=== PATIENT | female | born 1945 | race Caucasian/White ===

== ENCOUNTER → 2016-08-14 | Outpatient (CLI) | payer OTHER ==
--- NOTE | 2016-08-14 17:32 | DIAGNOSTIC IMAGING REPORT ---
MRI OF THE BRAIN AND INTERNAL AUDITORY CANALS WITHOUT CONTRAST CLINICAL HISTORY: SENSORINEURAL HEARING LOSS BILATERAL COMPARISON STUDY: No previous studies for comparison. FINDINGS: No intravenous contrast was administered due to history of renal disease and transplant. This limits the study for the detection of small intracanalicular tumors. No intra or extra-axial mass lesions are visualized. Axial diffusion-weighted images reveal no evidence of acute or subacute infarction. There is no evidence of hydrocephalus. There is mucosal thickening/fluid within the maxillary and ethmoid sinuses. Proton density T2-weighted and FLAIR images reveal scattered foci of increased signal within the white matter, likely on a small vessel basis. No cerebellopontine angle masses are visualized given the limitations of a noncontrast study. IMPRESSION: 1. No acute intracranial findings 2. No evidence of intracranial mass given the limitations of a noncontrast study 3. No evidence of acute or subacute infarction 4. Foci of increased T2 signal within the white matter, likely on a small vessel ischemic basis Electronically signed by: Richie Nuñez M.D. 08/14/2016 5:30 PM Dictated Date/Time: 08/14/2016 5:26 PM
== END | disposition home or self-care (01) ==
LOC: C.MRI 15:34
PROVIDERS: ATTEND Otolaryngology
DX: H91.93 Unspecified hearing loss, bilateral (principal)

== ENCOUNTER 2021-11-29 11:07 | Inpatient (IN) ==
--- NOTE | 2021-11-29 11:18 | Emergency Department Note ---
Impression & Plan Acute dehydration, Nausea vomiting and diarrhea, Abdominal pain, Self-injurious behavior ED Provider Note NAME: BERTIN FLORES AGE: 76 SEX: F : 1945 ARRIVES VIA: Ambulance INFORMANT: Patient, ED PROVIDER(S): Salazar Elmore MD Chief Complaint: Weakness, fatigue, concern for mental wellness HPI: Patient presents primarily due to concern for weakness fatigue diarrhea with an episode of vomiting. The patient did have an episode of vomiting earlier today while in clinic. Daughter at bedside states that the patient has had dark stools. Does not take any blood thinner medications. The patient does feel cold but denies any chest pains or shortness of breath. The patient does complain of left-sided and lower abdominal pain. No reported fevers or chills. The patient has been at [facility] several weeks ago and was just discharged from [facility] 9 days ago. The patient had been on 2 separate sets of antibiotics during the 2 hospitalizations and does have a known history of C. difficile. Patient has been having diarrhea since her discharge from [place]. Patient reportedly tried to cut her left wrist 2 days prior and an attempt to self-harm because she was tired of being sick as well as having the diarrhea. ROS: See HPI for pertinent positives and negatives. A total of 10 systems were reviewed and otherwise negative. Past medical history: See below Surgical history: See below Social history: See below Physical Exam: GENERAL: Mildly ill in appearance, wearing a mask, non-toxic. EYE EXAM: Normal conjunctiva. PERRL, no anisocoria and EOM's grossly intact w/o pain. NECK: Supple, no nuchal rigidity, no adenopathy, non-tender. No signs of meningismus. FROM of the neck with good chin to chest and neck extension. No stridor. LUNGS: Clear to auscultation. Normal chest wall mechanics. HEART: NSR, no MRG. ABDOMEN: Abdomen soft, mid and lower abdominal discomfort, not peritonitic, normo-active bowel sounds, no masses, no rebound or guarding. BACK: No CVA TTP. SKIN: 2 horizontal well-healing eschars over the dorsal aspect of the wrist, currently hemostatic no surrounding skin changes. Neurovascular intact distally. UPPER EXTREMITIES: Upper extremities are grossly normal. LOWER EXTREMITIES: Grossly normal, no edema. NEURO EXAM: A&O x3, cranial nerves II-XII grossly intact, normal speech, moves all 4 extremities. Differential diagnoses: Infection, dehydration, metabolic abnormality, hypo/hyperglycemia, electrolyte disturbance, anemia, hypoxia, cardiac sources, intracerebral event, toxicologic, neurologic, as well as other pathologies. Course: Patient was seen and evaluated the bedside. Full history physical exam was performed. EKG interpreted by me Normal sinus rhythm, rate of 72, normal intervals, normal axis, no ST elevations. No significant change for comparison July 19, 2020. Imaging Studies: See Below Cardiac monitoring: An order was placed for continuous cardiac monitoring. The monitor shows a rate of 82 with sinus rhythm. MDM: Patient presents due to concern for weakness fatigue and self-harm. Blood work is obtained along with CT abdomen pelvis chest x-ray urinalysis was given IV fluids and antiemetics. Patient did have hypoxemia when the patient was asleep so she was placed on 4 L nasal cannula. Chest x-ray was obtained. Patient had never endorsed any cough shortness of breath or chest pain. Patient has a normal white count H&H and platelet count kidney function did show prerenal azotemia likely consistent with dehydration. Initial lactate of 2.1. The patient did receive a second liter of IV fluids. Mild hypercalcemia 10.2. Procalcitonin is negative. Chakra pending. COVID-negative. Patient's chest fi lm is negative and the patient CT abdomen pelvis does not show any acute process. I did speak the on-call hospitalist Dr. Veliz as well as Ajit Tejada PA-C. Patient did have a fecal occult blood ordered but the patient's hemoglobin is normal. Patient also had a GI study ordered given the patient's history of prior C. difficile with diarrhea. 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) S/P hysterectomy S/P kidney transplant (11/2002) Family History Brother Diabetes Father Coronary heart disease Diabetes Cancer Myocardial infarction, Onset Age: 39 Smoker Sister Diabetes Mother Diabetes Stroke Brother Prostate cancer Denies family history of Ovarian cancer Breast cancer Colorectal cancer Social History Smoking Status: Never smoker Second Hand Exposure: No; Do You Dip or Chew Tobacco: No; Tobacco Cessation Education Requested by Patient: No Hx Alcohol Use: No Hx Substance Use: No Preferred Language: Icelandic Communication Ability: Effective Visual Impairment: Limited Hearing Ability: Hard of Hearing Technology Director Required: No Beliefs That Will Affect Care: None marital status: Current Living Situation: Alone current occupational status: retired 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 Other Information That Helps Us Care for You: No Feels Safe at Home: Yes Safety Concerns: Feels Safe At This Time caffeine: Yes during the past year weight has: remained stable Dental Care, Regularly: Yes Physical Activity Frequency: 3-4 Times per Week Seatbelt Use: always Sunscreen Use: No Assistive Devices: None Allergies Allergies Allergy/AdvReac Type Severity Reaction Status Date / Time adhesive tape Allergy Unknown Verified 11/29/21 09:25 dexlansoprazole Allergy Unknown Verified 11/29/21 09:25 [From Dexilant] latex Allergy Unknown Verified 11/29/21 09:25 vancomycin Allergy Unknown Verified 11/29/21 09:25 ASPIRIN IN LARGE DOSES AdvReac MAKES HEAD Uncoded 11/29/21 09:25 SPIN Home Meds Home Medications Medication Instructions Recorded Confirmed tacrolimus 1 mg capsule, 1 mg PO .COMPLEX 04/01/19 11/29/21 immediate-release (Prograf) B-complex with vitamin C 1 tab PO DAILY 02/21/21 11/29/21 azathioprine 50 mg tablet (Imuran) 75 mg PO DAILY 11/29/21 11/29/21 losartan 25 mg tablet (Cozaar) 25 mg PO DAILY 11/29/21 11/29/21 Previous Rx's Medication Instructions Recorded blood sugar diagnostic (iKnowlTouch #200 ea 02/21/21 Ultra Test strips) blood-glucose meter (iKnowlTouch #1 ea 02/21/21 Ultra2 Meter kit) lancets 30 gauge (OneTouch Delica #200 ea 02/21/21 Plus Lancet) Results & Data (ED) Vital Signs Vital Signs - 24 hr 11/29/21 11:07 11/29/21 13:19 11/29/21 13:19 Temperature 36.7 C Temperature Source Oral Pulse Rate 68 Pulse Rate [Left Finger] Pulse Rate from SpO2 Sensor Respiratory Rate 18 Respiratory Effort / Characteristics Non-Labored Spontaneous Respiratory Depth Normal Respiratory Pattern Regular Blood Pressure 164/75 H Blood Pressure [Left Arm] Blood Pressure Mean 104 Blood Pressure Mean [Left Arm] Blood Pressure Position [Left Arm] Pulse Oximetry 98 79 L 99 Oxygen Delivery Method Room Air Room Air Nasal Cannula Oxygen Flow Rate 4 Sepsis Recent Fever Within 48 Hours No Sepsis New/Unexplained Change in Mental Status N/A Sepsis Action Taken by Nursing No Action Required 11/29/21 12:56 11/29/21 13:30 11/29/21 14:00 Temperature Temperature Source Pulse Rate 67 73 Pulse Rate [Left Finger] 67 Pulse Rate from SpO2 Sensor 68 74 Respiratory Rate 16 22 27 H Respiratory Effort / Characteristics Respiratory Depth Respiratory Pattern Blood Pressure 195/87 H 187/97 H Blood Pressure [Left Arm] 195/78 H Blood Pressure Mean 123 127 Blood Pressure Mean [Left Arm] 117 Blood Pressure Position [Left Arm] Lying Pulse Oximetry 100 99 99 Oxygen Delivery Method Nasal Cannula Oxygen Flow Rate 4 Sepsis Recent Fever Within 48 Hours Sepsis New/Unexplained Change in Mental Status Sepsis Action Taken by Nursing 11/29/21 14:58 11/29/21 15:25 11/29/21 16:36 Temperature Temperature Source Pulse Rate Pulse Rate [Left Finger] 70 71 68 Pulse Rate from SpO2 Sensor Respiratory Rate 18 20 20 Respiratory Effort / Characteristics Non-Labored Non-Labored Non-Labored Respiratory Depth Normal Normal Normal Respiratory Pattern Blood Pressure Blood Pressure [Left Arm] 197/80 H 204/91 H 202/103 H Blood Pressure Mean Blood Pressure Mean [Left Arm] 119 128 136 Blood Pressure Position [Left Arm] Pulse Oximetry 98 88 L 98 Oxygen Delivery Method Room Air Room Air Room Air Oxygen Flow Rate Sepsis Recent Fever Within 48 Hours Sepsis New/Unexplained Change in Mental Status Sepsis Action Taken by [facility] Medications Current Medication List: was personally reviewed by me Laboratory Data Attestation: I reviewed the patient's lab results. Result diagrams: 11/29/21 12:28 11/29/21 12:28 Lab Results 11/29/21 11/29/21 11/29/21 Range/Units 12:23 12:28 12:28 WBC 8.68 (4.8-10.8) K/ul RBC 4.67 (3.93-5.22) M/uL Hgb 14.5 (12.0-16.0) g/dl Hct 41.5 (34.1-44.9) % MCV 88.9 (80.0-100.0) fL MCH 31.0 (25.0-34.0) pg MCHC 34.9 (32.0-36.0) g/dL RDW Std Deviation 47.3 H (36.4-46.3) fL RDW Coeff of Geo 14.8 H (11.5-14.5) % Plt Count 213 (130-400) K/uL MPV 11.8 (9.4-12.3) fL Immature Gran % (Auto) 0.3 % Neut % (Auto) 79.0 % Lymph % (Auto) 10.8 % [place] % (Auto) 8.9 % Eos % (Auto) 0.9 % Baso % (Auto) 0.1 % Neut # (Auto) 6.85 H (1.4-6.5) K/uL Lymph # (Auto) 0.94 L (1.2-3.4) K/uL [place] # (Auto) 0.77 (0.24-0.82) K/uL Eos # (Auto) 0.08 (0-0.50) K/uL Baso # (Auto) 0.01 (0-0.2) K/uL Immature Gran # (Auto) 0.03 H (0.00-0.02) K/uL Sodium 142 (136-145) mmol/L Potassium 3.5 (3.5-5.1) mmol/L Chloride 109 H (98-107) mmol/L Carbon Dioxide 24 (21-32) mmol/L Anion Gap 9 (3-11) BUN 25 H (6-23) mg/dl Creatinine 0.79 (0.6-1.2) mg/dl Est Cr Clr Drug Dosing 54.6 ml/min Est GFR ( Amer) 83.1 ml/min Est GFR (Non-Af Amer) 71.7 ml/min BUN/Creatinine Ratio 31.6 H (10-20) Glucose 107 H (70-99(Fasting)) mg/dl Lactate (0.4-2.0) mmol/L Calcium 10.2 H (8.5-10.1) mg/dl Total Bilirubin 1.4 H (0.2-1.0) mg/dl AST 13 (13-39) U/L ALT 11 (7-52) U/L Alkaline Phosphatase 55 (34-104) U/L Troponin I High Sens 9.4 (0-14) pg/ml Total Protein 7.3 (6.0-8.3) gm/dl Albumin 3.8 (3.4-5.0) gm/dl Globulin 3.5 (2.5-4.0) gm/dl Albumin/Globulin Ratio 1.1 (0.9-2) Lipase 136 H (11-82) U/L Procalcitonin (0-0.5) ng/ml SARS-CoV-2, RNA, NAAT NEGATIVE (NEGATIVE) 11/29/21 11/29/21 11/29/21 Range/Units 12:28 12:28 15:02 WBC (4.8-10.8) K/ul RBC (3.93-5.22) M/uL Hgb (12.0-16.0) g/dl Hct (34.1-44.9) % MCV (80.0-100.0) fL MCH (25.0-34.0) pg MCHC (32.0-36.0) g/dL RDW Std Deviation (36.4-46.3) fL RDW Coeff of Geo (11.5-14.5) % Plt Count (130-400) K/uL MPV (9.4-12.3) fL Immature Gran % (Auto) % Neut % (Auto) % Lymph % (Auto) % [place] % (Auto) % Eos % (Auto) % Baso % (Auto) % Neut # (Auto) (1.4-6.5) K/uL Lymph # (Auto) (1.2-3.4) K/uL [place] # (Auto) (0.24-0.82) K/uL Eos # (Auto) (0-0.50) K/uL Baso # (Auto) (0-0.2) K/uL Immature Gran # (Auto) (0.00-0.02) K/uL Sodium (136-145) mmol/L Potassium (3.5-5.1) mmol/L Chloride (98-107) mmol/L Carbon Dioxide (21-32) mmol/L Anion Gap (3-11) BUN (6-23) mg/dl Creatinine (0.6-1.2) mg/dl Est Cr Clr Drug Dosing ml/min Est GFR ( Amer) ml/min Est GFR (Non-Af Amer) ml/min BUN/Creatinine Ratio (10-20) Glucose (70-99(Fasting)) mg/dl Lactate 2.1 H* 1.2 (0.4-2.0) mmol/L Calcium (8.5-10.1) mg/dl Total Bilirubin (0.2-1.0) mg/dl AST (13-39) U/L ALT (7-52) U/L Alkaline Phosphatase (34-104) U/L Troponin I High Sens (0-14) pg/ml Total Protein (6.0-8.3) gm/dl Albumin (3.4-5.0) gm/dl Globulin (2.5-4.0) gm/dl Albumin/Globulin Ratio (0.9-2) Lipase (11-82) U/L Procalcitonin < 0.05 (0-0.5) ng/ml SARS-CoV-2, RNA, NAAT (NEGATIVE) Administered Medications Discontinued Medications Sodium Chloride (Nss 1000ml) 1,000 mls @ 999 mls/hr IV .Q1H1M STA Stop: 11/29/21 12:26 Last Infusion: 11/29/21 14:07 Dose: 0 mls/hr Documented By: Admin: 11/29/21 12:28 Dose: 999 mls/hr Documented By: LAILA Sodium Chloride (Nss 1000ml) 1,000 mls @ 999 mls/hr IV .Q1H1M ONE Stop: 11/29/21 14:23 Last Infusion: 11/29/21 15:25 Dose: 0 mls/hr Documented By: Admin: 11/29/21 13:29 Dose: 999 mls/hr Documented By: HANANE Ondansetron HCl (Ondansetron Inj 2 Mg/Ml 2 Ml Vial) 4 mg IV NOW STA Stop: 11/29/21 11:27 Last Admin: 11/29/21 12:28 Dose: 4 mg Documented By: [facility] Imaging Data Radiologist's Impression: Chest X-Ray 11/29/21 13:26 XR chest 1V portable CLINICAL HISTORY: hypoxia when asleep TECHNIQUE: Single frontal radiograph of the chest was obtained. Comparison: None available at the time of this dictation. FINDINGS: No lines and tubes are seen. Calcified aortic knob is seen. The lungs are clear. No evidence of pleural effusion or pneumothorax. IMPRESSION: No acute chest disease. ACT 112: Negative or not required by law. Electronically signed by: Luciano Rust M.D. 11/29/2021 2:10 PM Abdomen/Pelvis CT 11/29/21 14:17 CT OF THE ABDOMEN AND PELVIS WITHOUT CONTRAST CLINICAL HISTORY: mid and lower ab pain; h/o renal trx, n/v/d COMPARISON STUDY: CT of the abdomen and pelvis July 19, 2020. Renal transplant ultrasound January 24, 2021. TECHNIQUE: Axial images of the abdomen and pelvis were obtained without IV contrast. Images were reviewed in the axial, sagittal, and coronal planes. Automated exposure control was utilized for the study. A dose lowering technique was utilized adhering to the principles of ALARA. FINDINGS: Lung bases are unremarkable. No pneumatosis, free air or portal venous gas is present. There is no biliary ductal dilatation status post cholecystectomy. Evaluation of the abdomen and pelvis is suboptimal on this unenhanced exam. Liver, spleen, adrenal glands and pancreas are unremarkable. [place] kidneys are atrophic. There may be a small peripherally calcified aneurys m arising from the proximal celiac axis. This is suboptimally assessed on this unenhanced exam. This is unchanged. There is extensive plaque of the abdominal aorta. No evidence for a bowel obstruction. Colonic diverticulosis is present. Suspected postsurgical changes within the right groin is noted. This is unchanged. Appearance of the left lower quadrant renal allograft is unremarkable. There is no hydronephrosis. There is no lymphadenopathy. No acute fractures within the visualized skeletal structures. No change in appearance of the abdomen or pelvis. IMPRESSION: 1. No acute process or pelvis on unenhanced exam. No change since CT of July 19, 2020. 2. No bowel obstruction. Colonic diverticulosis without evidence for acute diverticulitis. 3. Unremarkable appearance of the left lower quadrant renal allograft on unenhanced CT. ACT 112: Negative or not required by law. Electronically signed by: Buzz Tellez M.D. 11/29/2021 3:19 PM Discharge Plan Visit Data Chief Complaint: Mental Health Evaluation Stated Complaint: WEAKNESS, MHID ED Provider: Salazar Elmore Discharge Problem: Acute dehydration, Nausea vomiting and diarrhea, Abdominal pain, Self-injurious behavior Patient Disposition: Admitted As Inpatient Forms Stand Alone Forms: [facility], Suicide Prevention Resources Prescriptions Prescriptions: No Action (DME) OneTouch Ultra Test Strip See Rx Instructions .Route Qty: 200 1RF Rx Instructions: test 3 times per day (DME) blood-glucose meter [OneTouch Ultra2 Meter] Kit See Rx Instructions .Route Qty: 1 0RF Rx Instructions: testing 3 times per day (DME) lancets [OneTouch Delica Plus Lancet] 30 gauge misc See Rx Instructions .Route Qty: 200 1RF Rx Instructions: testing 3 times per day B-complex with vitamin C Tablet 1 tab PO DAILY tacrolimus [Prograf] 1 mg capsule 1 mg PO .COMPLEX Rx Instructions: 1 mg PO 1 tablet in the am 2 tablets in the pm azathioprine [Imuran] 50 mg tablet 75 mg PO DAILY losartan [Cozaar] 25 mg tablet 25 mg PO DAILY Referrals Referrals: Kaylan Chavez, [Primary Care Provider] -
[2021-11-29] MEDS ORDERED: SODIUM CHLORIDE 0.9% 1000ML 1,000 ML IV STA (11:26)
[2021-11-29] MEDS ORDERED: ONDANSETRON INJ 2 MG/ML 2 ML VIAL IV STA (11:26)
[2021-11-29 12:54] LABS: Basophils # (auto) 0.01 K/uL (0-0.2); Basophils % (auto) 0.1 %; Eosinophils # (auto) 0.08 K/uL (0-0.50); Eosinophils % (auto) 0.9 %; Hematocrit (blood only) 41.5 % (34.1-44.9); Hemoglobin 14.5 g/dl (12.0-16.0); Immature Granulocytes # (auto) 0.03 K/uL (0.00-0.02); Immature Granulocytes % (auto) 0.3 %; Lymphocytes # (auto) 0.94 K/uL (1.2-3.4); Lymphocytes % (auto) 10.8 %; Mean Corpuscular Hgb Conc 34.9 g/dL (32.0-36.0); Mean Corpuscular Volume 88.9 fL (80.0-100.0); Mean Platelet Volume 11.8 fL (9.4-12.3); Monocytes # (auto) 0.77 K/uL (0.24-0.82); Monocytes % (auto) 8.9 %; Neutrophils # (auto) 6.85 K/uL (1.4-6.5); Platelet Count 213 K/uL (130-400); RDW Coefficient of Variation 14.8 % (11.5-14.5); RDW Standard Deviation 47.3 fL (36.4-46.3); Red Blood Count 4.67 M/uL (3.93-5.22); White Blood Count 8.68 K/ul (4.8-10.8)
[2021-11-29 13:16] LABS: Troponin I High Sensitivity 9.4 pg/ml (0-14)
[2021-11-29 13:19] LABS: Albumin Globulin Ratio 1.1 (0.9-2); Albumin Level 3.8 gm/dl (3.4-5.0); BUN Creatinine Ratio 31.6 (10-20); Bilirubin,Total 1.4 mg/dl (0.2-1.0); Calcium 10.2 mg/dl (8.5-10.1); Creatinine Clr Calc Pharmacy 54.6 ml/min; Est GFR (African American) 83.1 ml/min; Est GFR (Non-African American) 71.7 ml/min; Globulin 3.5 gm/dl (2.5-4.0); Potassium 3.5 mmol/L (3.5-5.1); Total Protein 7.3 gm/dl (6.0-8.3)
[2021-11-29] MEDS ORDERED: SODIUM CHLORIDE 0.9% 1000ML 1,000 ML IV ONE (13:23)
--- NOTE | 2021-11-29 14:11 | XRay Report ---
XR chest 1V portable CLINICAL HISTORY: hypoxia when asleep TECHNIQUE: Single frontal radiograph of the chest was obtained. Comparison: None available at the time of this dictation. FINDINGS: No lines and tubes are seen. Calcified aortic knob is seen. The lungs are clear. No evidence of pleur al effusion or pneumothorax. IMPRESSION: No acute chest disease. ACT 112: Negative or not required by law. Electronically signed by: Luciano Rust M.D. 11/29/2021 2:10 PM
--- NOTE | 2021-11-29 15:21 | CT Scan Report ---
CT OF THE ABDOMEN AND PELVIS WITHOUT CONTRAST CLINICAL HISTORY: mid and lower ab pain; h/o renal trx, n/v/d COMPARISON STUDY: CT of the abdomen and pelvis July 19, 2020. Renal transplant ultrasound January 24, 2021. TECHNIQUE: Axial images of the abdomen and pelvis were obtained without IV contrast. Images were revi ewed in the axial, sagittal, and coronal planes. Automated exposure control was utilized for the jez dy. A dose lowering technique was utilized adhering to the principles of ALARA. FINDINGS: Lung bases are unremarkable. No pneumatosis, free air or portal venous gas is present. Ther e is no biliary ductal dilatation status post cholecystectomy. Evaluation of the abdomen and pelvis i s suboptimal on this unenhanced exam. Liver, spleen, adrenal glands and pancreas are unremarkable. Na tive kidneys are atrophic. There may be a small peripherally calcified aneurysm arising from the prox imal celiac axis. This is suboptimally assessed on this unenhanced exam. This is unchanged. There is extensive plaque of the abdominal aorta. No evidence for a bowel obstruction. Colonic diverticulosis is present. Suspected postsurgical changes within the right groin is noted. This is unchanged. Appear ance of the left lower quadrant renal allograft is unremarkable. There is no hydronephrosis. There is no lymphadenopathy. No acute fractures within the visualized skeletal structures. No change in appea michael of the abdomen or pelvis. IMPRESSION: 1. No acute process or pelvis on unenhanced exam. No change since CT of July 19, 2020. 2. No bowel obstruction. Colonic diverticulosis without evidence for acute diverticulitis. 3. Unremarkable appearance of the left lower quadrant renal allograft on unenhanced CT. ACT 112: Negative or not required by law. Electronically signed by: Buzz Tellez M.D. 11/29/2021 3:19 PM
--- NOTE | 2021-11-29 17:34 | History & Physical Report ---
Date of Service November 29, 2021 Assessment & Plan (1) Weakness: Plan: Attending: Dr. Veliz Impression: This is a 76-year-old female who initially was ill 11/06/2021 with COVID. She was treated at home with antibiotics. She had worsening symptoms by 11/13/2021 and presented to [facility] with nausea and vomiting and diarrhea. She was treated with antibiotics. Initially it was planned that she will go to rehab hospital however, she did not meet qualification with her insurance company due to lack of participation with rehab while inpatient. Patient discharged home 9 days ago. She had increasing weakness and depression and slip ventral wrists bilaterally with superficial lacerations with a kitchen knife not requiring intervention. 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 We will admit patient to medical telemetry until DVT is ruled out. Psychiatry consult placed with suicide precautions per protocol until cleared by psychiatry. Anticipate discharge to rehab as patient lives alone and does not appear to be able to manage ADLs. Regarding patient's weakness,CT scan of the abdomen appears to be without change from prior.No exquisite pain with palpation of the patient does have some tendernessTo deep palpation. Continue to hydrate patient with normal saline solutionWith 20 mill equivalents of potassium PT/OT evaluation and treatment Case management referral for rehab placement Fall precautions Continue supportive care (2) History of Clostridium difficile colitis: Plan: Patient does have history of C. difficile and currently has diarrhea Will check for C. difficile and continue isolation precautions with contact precautions per protocol No indication for oral antibiotics at this time Continue to follow stools (3) Hypercalcemia: Plan: Calcium is currently 10.2 mg/Bismark. Patient typically is around 9.2-9.5. No intervention at this time. We will repeat labs in the morning. (4) Depression: Plan: Patient previously was on antidepressants but these were stopped some years ago Patient does have depression secondary to 19-year [place] post transplant of pancreas and kidney Recently patient is very depressed and slit her wrists bilaterally with superficial lacerations from a kitchen knife this week on Friday or Friday Suicide precautions per protocol Psychiatry consult requested We will hold off on any medical management until seen by psychiatry (5) Hoarding behavior: Plan: See above (6) Hyperlipidemia: Plan: Outpatient management 2 to pancreatic and kidney transplant (7) S/P kidney transplant: Plan: Continue Prograf as directed. Brand necessary. Order placed that patient may take home medication. 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 daily We will continue this at this time Will also add hydralazine 5 mg IV as needed for SBP greater than 180 Follow on telemetry Echocardiogram in August with preserved left ventricular ejection fraction of 60 to 65%. Left ventricular size, wall motion, systolic function normal. Mild mitral regurgitation. Monitor on medical telemetry for now (10) Esophageal reflux disease: Plan: Patient is not on any PPI or H2 nazario Follow symptomatically (11) DVT prophylaxis: Plan: Heparin 5000 units subcutaneously every 12 hours Please refer to Dr. Veliz's addendum for further corrections and additions. History of Present Illness Chief Complaint: Generalized weakness, abdominal pain. Diarrhea Primary Care Provider: Kaylan Chavez DO Attending: Dr. Veliz This is a 76-year-old female with past medical history of pancreatic as well as kidney transplant. She also has a history of hypertension and irritable bowel disease with associated C. difficile colitis in the past. Patient presents for abdominal pain as well as recent attempt to harm herself by slitting bilateral wrists. Brief history as follows: * Original pancreas and kidney transplant at [facility] in 2002 * Revision to transplants at [facility] in [place] 2010 * History of C. difficile colitis * Was ill 11/06/2021 and presented primary care office. She was found to be positive for COVID and sent home with an unknown antibiotic * On 11/13/2021 patient had recurrence of illness associated with nausea, vomiting, diarrhea. She presented to [facility] and was placed on IV antibiotics and IV fluids * Patient was originally planned to be discharged to rehab but due to the holiday, this was unable to be accomplished. After the holiday on 11/20/2021 insurance denied rehab stay as patient refused inpatient therapies Patient was discharged home 11/20/2021 where she lives alone. Her daughter checked on her frequently but patient had no appetite and was not eating or drinking well. On 11/25/2021 daughter checked on patient and she seemed to be doing well. She was then seen on 11/28/2021 and at this time it was identified that she had attempted to cut her wrist with a kitchen knife. Patient was then sent to primary care office for evaluation today and was referred to the emergency department for evaluation. CT scan of the abdomen pelvis showed no new findings as compared to previous CT. Patient's labs were relatively stable with the exception of a lactic acid of 2.1. This was treated with 1 L of normal saline and corrected to 1.2. Patient was also noted to have hypercalcemia at 10.2 mg/Bismark with no physical evidence of hypercalcemia. Procalcitonin is negative. There is no leukocytosis. Hemoglobin is stable at 14.5 with a hematocrit of 41.5. Patient is afebrile and hemodynamically stable. She is currently saturating 98% on room air. She complains of mild abdominal pain but no nausea or vomiting. Long discussion with patient and daughter Jeanie. Patient wishes to be a DNR/DNI. A POLST form was completed after been explained to the patient and the daughter. The patient is a lifelong non-smoker. Negative for any ethanol consumption. She currently lives alone and has struggled with hoarding at home. Allergies Allergy/AdvReac Type Severity Reaction Status Date / Time adhesive tape Allergy Unknown Verified 11/29/21 09:25 dexlansoprazole Allergy Unknown Verified 11/29/21 09:25 [From Dexilant] latex Allergy Unknown Verified 11/29/21 09:25 vancomycin Allergy Unknown Verified 11/29/21 09:25 ASPIRIN IN LARGE DOSES AdvReac MAKES HEAD Uncoded 11/29/21 09:25 SPIN Home Medications Medication Instructions Recorded Confirmed Type tacrolimus 1 mg capsule, 1 mg PO .COMPLEX 04/01/19 11/29/21 History immediate-release (Prograf) B-complex with vitamin C 1 tab PO DAILY 02/21/21 11/29/21 History blood sugar diagnostic (OneTouch #200 ea 02/21/21 11/29/21 Rx Ultra Test strips) blood-glucose meter (Self PointTouch #1 ea 02/21/21 11/29/21 Rx Ultra2 Meter kit) lancets 30 gauge (OneTouch Delica #200 ea 02/21/21 11/29/21 Rx Plus Lancet) azathioprine 50 mg tablet (Imuran) 75 mg PO DAILY 11/29/21 11/29/21 History losartan 25 mg tablet (Cozaar) 25 mg PO DAILY 11/29/21 11/29/21 History 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) S/P hysterectomy S/P kidney transplant (11/2002) Family History Brother Diabetes Father Coronary heart disease Diabetes Cancer Myocardial infarction, Onset Age: 39 Smoker Sister Diabetes Mother Diabetes Stroke Brother Prostate cancer Denies family history of Ovarian cancer Breast cancer Colorectal cancer Social History Smoking Status: Never smoker Second Hand Exposure: No; Do You Dip or Chew Tobacco: No; Tobacco Cessation Education Requested by Patient: No Hx Alcohol Use: No Hx Substance Use: No Preferred Language: Sinhala Communication Ability: Effective Visual Impairment: Limited Hearing Ability: Hard of Hearing Workers Compensation Adjuster Required: No Beliefs That Will Affect Care: None marital status: Single Current Living Situation: Alone current occupational status: retired 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 Pupils equal round and reactive to light and accommodation NOSE: No evidence of epistaxis MOUTH: No lesions or candidiasis. Mucosa moist. No evidence of posterior oropharynx bleeding NECK: Supple. No carotid bruits or stridor. No appreciation of cervical lymphadenopathy. No appreciation of supraclavicular lymphadenopathy. LUNGS: CTA B/L, no wheezes, rales or rhonchi HEART: Regular, rate controlled. No ectopy or evidence of heart murmur ABDOMEN: Soft, NT, ND, BS Present EXTREMITIES: Bilateral LE edema, pedal pulses intact and equal bilaterally. Positive for exquisite calf pain bilaterally with light palpation NEURO: A&OX3. Flat affect. Moves all extremities to command and spontaneously. Pupils equal round and reactive to light and accommodation. Tongue is midline. No facial droop. Patient extremely weak but does not appear to have pronator drift. Toes are downgoing bilaterally. Results & Data Results & Data ([facility]) Vital Signs (Past 12 Hours) Vital Signs Temp Pulse Pulse Resp BP BP Pulse Ox 11/29/21 16:36 68 20 202/103 H 98 11/29/21 15:25 71 20 204/91 H 88 L 11/29/21 14:58 70 18 197/80 H 98 11/29/21 14:00 73 27 H 187/97 H 99 11/29/21 13:30 67 22 195/87 H 99 11/29/21 12:56 67 16 195/78 H 100 11/29/21 13:19 99 11/29/21 13:19 79 L 11/29/21 11:07 36.7 C 68 18 164/75 H 98 O2 Del Method O2 Flow Rate 11/29/21 16:36 Room Air 11/29/21 15:25 Room Air 11/29/21 14:58 Room Air 11/29/21 14:00 11/29/21 13:30 11/29/21 12:56 Nasal Cannula 4 11/29/21 13:19 Nasal Cannula 4 11/29/21 13:19 Room Air 11/29/21 11:07 Room Air Critical Care Results & Data Vital Signs (Past 12 Hours) Vital Signs Temp Pulse Pulse Resp BP BP Pulse Ox 11/29/21 16:36 68 20 202/103 H 98 11/29/21 15:25 71 20 204/91 H 88 L 11/29/21 14:58 70 18 197/80 H 98 11/29/21 14:00 73 27 H 187/97 H 99 11/29/21 13:30 67 22 195/87 H 99 11/29/21 12:56 67 16 195/78 H 100 11/29/21 13:19 99 11/29/21 13:19 79 L 11/29/21 11:07 36.7 C 68 18 164/75 H 98 O2 Del Method O2 Flow Rate 11/29/21 16:36 Room Air 11/29/21 15:25 Room Air 11/29/21 14:58 Room Air 11/29/21 14:00 11/29/21 13:30 11/29/21 12:56 Nasal Cannula 4 11/29/21 13:19 Nasal Cannula 4 11/29/21 13:19 Room Air 11/29/21 11:07 Room Air Lab & Micro Results (Past 24 Hours) RBC 4.09 M/uL (3.93-5.22) 12/02/21 WBC 5.19 K/ul (4.8-10.8) 12/02/21 Hgb 12.6 g/dl (12.0-16.0) 12/02/21 Hct 36.8 % (34.1-44.9) 12/02/21 MCV 90.0 fL (80.0-100.0) 12/02/21 MCH 30.8 pg (25.0-34.0) 12/02/21 MCHC 34.2 g/dL (32.0-36.0) 12/02/21 RDW Standard Deviation 47.8 fL (36.4-46.3) H 12/02/21 RDW Coefficient of Variation 14.6 % (11.5-14.5) H 12/02/21 Plt Count 82 K/uL (130-400) L 12/02/21 MPV 11.9 fL (9.4-12.3) 12/02/21 Na 135 mmol/L (136-145) L 12/02/21 K 3.3 mmol/L (3.5-5.1) L 12/02/21 Cl 104 mmol/L (98-107) 12/02/21 CO2 24 mmol/L (21-32) 12/02/21 Anion Gap 7 (3-11) 12/02/21 BUN 11 mg/dl (6-23) 12/02/21 Creatinine 0.69 mg/dl (0.6-1.2) 12/02/21 Estimated GFR ( Amer) 96.6 ml/min 12/02/21 Estimated GFR (Non-Af Amer) 83.4 ml/min 12/02/21 BUN/Creatinine Ratio 15.9 (10-20) 12/02/21 Glu 101 mg/dl (70-99(Fasting)) H 12/02/21 Ca 9.1 mg/dl (8.5-10.1) 12/02/21 Calcium Level 9.1 mg/dl (8.5-10.1) 12/02/21 05:04 Diagnostic Findings (Past 24 Hours) Chest X-Ray 11/29/21 13:26 XR chest 1V portable CLINICAL HISTORY: hypoxia when asleep TECHNIQUE: Single frontal radiograph of the chest was obtained. Comparison: None available at the time of this dictation. FINDINGS: No lines and tubes are seen. Calcified aortic knob is seen. The lungs are clear. No evidence of pleural effusion or pneumothorax. IMPRESSION: No acute chest disease. ACT 112: Negative or not required by law. Electronically signed by: Luciano Rust M.D. 11/29/2021 2:10 PM Abdomen/Pelvis CT 11/29/21 14:17 CT OF THE ABDOMEN AND PELVIS WITHOUT CONTRAST CLINICAL HISTORY: mid and lower ab pain; h/o renal trx, n/v/d COMPARISON STUDY: CT of the abdomen and pelvis July 19, 2020. Renal transplant ultrasound January 24, 2021. TECHNIQUE: Axial images of the abdomen and pelvis were obtained without IV contrast. Images were reviewed in the axial, sagittal, and coronal planes. Automated exposure control was utilized for the study. A dose lowering technique was utilized adhering to the principles of ALARA. FINDINGS: Lung bases are unremarkable. No pneumatosis, free air or portal venous gas is present. There is no biliary ductal dilatation status post ch olecystectomy. Evaluation of the abdomen and pelvis is suboptimal on this unenhanced exam. Liver, spleen, adrenal glands and pancreas are unremarkable. Knik kidneys are atrophic. There may be a small peripherally calcified aneurysm arising from the proximal celiac axis. This is suboptimally assessed on this unenhanced exam. This is unchanged. There is extensive plaque of the abdominal aorta. No evidence for a bowel obstruction. Colonic diverticulosis is present. Suspected postsurgical changes within the right groin is noted. This is unchanged. Appearance of the left lower quadrant renal allograft is unremarkable. There is no hydronephrosis. There is no lymphadenopathy. No acute fractures within the visualized skeletal structures. No change in appearance of the abdomen or pelvis. IMPRESSION: 1. No acute process or pelvis on unenhanced exam. No change since CT of July 19, 2020. 2. No bowel obstruction. Colonic diverticulosis without evidence for acute diverticulitis. 3. Unremarkable appearance of the left lower quadrant renal allograft on unenhanced CT. ACT 112: Negative or not required by law. Electronically signed by: Buzz Tellez M.D. 11/29/2021 3:19 PM I & O Totals 24 Hours 11/28/21 11/29/21 11/30/21 06:59 06:59 06:59 Intake Total 1999 Balance 1999 Cumulative 11/29/21 10:53 thru 11/29/21 16:36 Intake Total 1999 RT Ventilator Mngmt (Last Documented) Ventilator Ordered Settings Respiratory Rate 20 11/29/21 16:36 Ventilator - PT Measurements Respiratory Rate 20 ECG Additional Comments: EKG 11/29/2021: Code Status & VTE Plan Code Status DNR/DNI as discussed with patient and daughter VTE Prophylaxis Plan VTE Prophylaxis will be ordered: Yes Supervising Physician Co-Signing Physician Notes Patient seen and examined, chart reviewed, case discussed with Ajit Tejada PA-C and I agree with the assessment and plan as above except as otherwise noted Labs and images reviewed 68-year-old female with persistent diarrhea recently treated for COVID 11/06/2021 currently requiring psychiatric observation due to slitting her wrists bilaterally superficially expressing fatigue and a desire to just no longer be ill. Assessment no acute distress, shallow cuts scabbed over on wrist bilaterally without neurovascular compromise. Breathing is unlabored. Wounds are clear to auscultation, heart rate is regular. Strength overall is weak, but with symmetrical strength to obstetrical tech strength and hip flexion. C. difficile precaution, follow for C. difficile given multiple hospitalizations and persistent diarrhea. Psychiatry consulted, follow on suicide precautions. Continue Prograf, Imuran agree with additional management as above PG Care Time/CCT Total # of Minutes Spent Total Time Spent with Patient: Total time spent is greater than 50% in coordination of care (as documented) at patient's floor/unit and/or counseling patient: 60 Coding Level of Care Code 89183 Initial Inpt Care Lvl 3 Diagnoses Weakness R53.1 History of Clostridium difficile colitis Z86.19 Hypercalcemia E83.52 Depression F32.A Hoarding behavior F42.3 Hyperlipidemia E78.5 S/P kidney transplant Z94.0 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
[2021-11-29] MEDS ORDERED: ALUMINUM/MAGNESIUM SUSP 30 ML UDC PO PRN (20:35)
[2021-11-29] MEDS ORDERED: hydrALAZINE HCL 20 MG/ML VIAL IV PRN (20:35)
[2021-11-29] MEDS ORDERED: ONDANSETRON INJ 2 MG/ML 2 ML VIAL IV PRN (20:35)
[2021-11-29] MEDS: NSS + 20MEQ KCL 20 MEQ/1,000 ML BAG IV SCH (21:59)
[2021-11-29] MEDS: HEPARIN SOD 5,000 UNIT/0.5 ML VIAL SQ SCH (21:59)
[2021-11-30] MEDS: TACROLIMUS 1 MG PO SCH ×2 (02:55→21:04)
[2021-11-30 04:36] LABS: Hematocrit (blood only) 36.5 % (34.1-44.9); Hemoglobin 12.7 g/dl (12.0-16.0); Mean Corpuscular Hemoglobin 31.2 pg (25.0-34.0); Mean Corpuscular Hgb Conc 34.8 g/dL (32.0-36.0); Mean Corpuscular Volume 89.7 fL (80.0-100.0); Mean Platelet Volume 11.6 fL (9.4-12.3); Platelet Count 166 K/uL (130-400); RDW Coefficient of Variation 14.8 % (11.5-14.5); RDW Standard Deviation 48.2 fL (36.4-46.3); Red Blood Count 4.07 M/uL (3.93-5.22); White Blood Count 6.76 K/ul (4.8-10.8)
[2021-11-30 05:00] LABS: Blood Urea Nitrogen 13 mg/dl (6-23); Calcium 8.9 mg/dl (8.5-10.1); Carbon Dioxide 23 mmol/L (21-32); Chloride 110 mmol/L (98-107); Creatinine Clr Calc Pharmacy 82.9 ml/min; Est GFR (African American) 106.1 ml/min; Est GFR (Non-African American) 91.5 ml/min; Glucose 91 mg/dl (70-99(Fasting))
--- NOTE | 2021-11-30 06:00 | Electrocardiogram Report ---
Test Reason : Blood Pressure : / mmHG Vent. Rate : 072 BPM Atrial Rate : 072 BPM P-R Int : 162 ms QRS Dur : 078 ms QT Int : 400 ms P-R-T Axes : 017 -04 031 degrees QTc Int : 438 ms Poor data quality, interpretation may be adversely affected Normal sinus rhythm Minimal voltage criteria for LVH, may be normal variant Septal infarct (cited on or before 29-NOV-2021) Abnormal ECG When compared with ECG of 19-JUL-2020 14:36, No significant change was found Confirmed by Geoff Miller ([id number]) on 11/30/2021 5:59:51 AM Referred By: REFERRED SELF Confirmed By:Geoff Miller
[2021-11-30 06:41] LABS: Magnesium 1.4 mg/dl (1.7-2.4); Potassium 3.9 mmol/L (3.5-5.1)
--- NOTE | 2021-11-30 07:32 | Ultrasound Report ---
BILATERAL LOWER EXTREMITY VENOUS DOPPLER CLINICAL HISTORY: Bilateral lower extremity swelling. R/O DVT COMPARISON STUDY: No previous studies for comparison. TECHNIQUE: Sonography of the deep venous system of the bilateral lower extremities was performed. Co mpression and augmentation were evaluated. FINDINGS: The bilateral common femoral, superficial femoral and popliteal veins were compressible. A ugmentation was normal. Flow was shown within the deep calf vessels. IMPRESSION: No evidence of deep venous thrombus within the bilateral lower extremities. ACT 112: Negative or not required by law. Electronically signed by: Buzz Tellez M.D. 11/30/2021 7:30 AM
[2021-11-30 07:40] LABS: Estimated Average Glucose 103 mg/dl; Hemoglobin A1C 5.2 % (4.5-5.6)
--- NOTE | 2021-11-30 07:42 | Hospitalist Progress Note ---
Date of Service November 30, 2021 Assessment & Plan (1) Weakness: Plan: 76 yo F Hx C diff, depression, s/p kidney transplant, HTN, GERD presented with weakness, abdominal pain, and suicidal ideation with self-injurious behavior. Weakness: Had COVID 11/06/2021, symptoms worsened 11/13 and was treated at [facility]. During that hospitalization rehab was recommended however did not qualify due to lack of participation in hospital rehab. On Friday cut bilateral wrists with superficial lacerations with kitchen knife, no intervention needed. CT Abdomen without acute process, no change from previous study. C diff pending. Electrolytes normal. Anticipate discharge to rehab as patient has been reported to have hoarding behaviors and reports of patient being unable to manage ADLs independently. Case Management consulted. NSS with KCl for hydration. Fall precautions. (2) History of Clostridium difficile colitis: Plan: Patient does have history of C. difficile and currently has diarrhea. Will check for C. difficile and continue isolation precautions with contact precautions per protocol. No indication for oral antibiotics at this time. (3) Hypercalcemia: Plan: Calcium improved from 10.2 -> 8.9 with IV fluids. Daily BMP. (4) Depression: Plan: Patient previously was on antidepressants but these were stopped several years ago. Depression somewhat illness-related, with Hx transplant of pancreas and kidney with multiple health complaints since that time. Recently patient is very depressed and slit her wrists bilaterally with superficial lacerations from a kitchen knife this week on Friday or Friday. Suicide precautions per protocol. Psychiatry consult requested and appreciate recommendations. (5) Suicidal ideation: Plan: see above (6) Hoarding behavior: Plan: See above (7) S/P kidney transplant: Plan: Continue Prograf as directed; home medication. Continue Imuran. 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 (9) Hypertension: Plan: Continue losartan 25mg daily, with hydralazine as needed for SBP > 180. Echocardiogram in August with preserved left ventricular ejection fraction of 60 to 65%. Left ventricular size, wall motion, systolic function normal. Mild mitral regurgitation. (10) Esophageal reflux disease: Plan: Patient is not on any PPI or H2 nazario Follow symptomatically (11) DVT prophylaxis: Plan: Heparin 5000 units subcutaneously every 12 hours Plan Code Status: FULL Admission and Anticipated Discharge Date Admission Date: November 29, 2021 Subjective No acute events overnight. Patient reports that she hurts everywhere, worst in her belly, with eating in particular. No specific foods make the pain worse. Due to poor appetite due to pain she has been feeling more and more weak. She has also been having a lot of diarrhea. She reports that she was "sick of being sick", which prompted her injuries to her bilateral wrists. She denies chest pain and trouble breathing. Review of Systems Constitutional: no fever and no chills Respiratory: no cough and no dyspnea Cardiovascular: no chest pain and no palpitations Gastrointestinal: + abdominal pain and + nausea; no vomiting Physical Exam Constitutional: WD/WN, vitals as above Respiratory: normal respiratory effort, lungs clear to auscultation Cardiovascular: RRR, no murmur, no edema Gastrointestinal (Abdomen): normal bowel sounds, soft, diffuse mild tenderness Skin: no rashes, warm and dry Psychiatric: Orientation: alert and oriented x 3 Affect: + depressed affect Results & Data Results & Data ([facility]) Vital Signs (Past 12 Hours) Vital Signs Pulse Pulse Resp BP BP Pulse Ox Pulse Ox 11/30/21 07:00 66 17 166/79 H 96 11/30/21 05:00 23 173/72 H 98 11/30/21 04:30 61 14 171/76 H 98 11/30/21 04:00 61 14 149/67 H 95 11/30/21 03:30 63 20 163/75 H 95 11/30/21 03:00 66 15 178/79 H 99 11/30/21 02:30 163/69 H 11/30/21 02:30 61 16 95 11/30/21 02:00 70 22 97 11/30/21 02:00 145/75 H 11/30/21 01:00 69 16 165/76 H 95 11/30/21 00:30 157/72 H 11/30/21 00:00 68 22 164/69 H 96 11/29/21 23:00 62 20 160/72 H 92 11/29/21 22:00 72 23 11/29/21 20:55 94 11/29/21 20:55 74 16 149/71 H 94 11/29/21 19:57 74 18 165/65 H 93 O2 Del Method O2 Del Method 11/30/21 07:00 Room Air 11/30/21 05:00 Room Air 11/30/21 04:30 Room Air 11/30/21 04:00 Room Air 11/30/21 03:30 Room Air 11/30/21 03:00 Room Air 11/30/21 02:30 11/30/21 02:30 11/30/21 02:00 11/30/21 02:00 11/30/21 01:00 Room Air 11/30/21 00:30 11/30/21 00:00 Room Air 11/29/21 23:00 Room Air 11/29/21 22:00 11/29/21 20:55 Room Air 11/29/21 20:55 Room Air 11/29/21 19:57 Room Air PG Care Time/CCT Total # of Minutes Spent Total Time Spent with Patient: Total time spent is greater than 50% in coordination of care (as documented) at patient's floor/unit and/or counseling patient: Coding Level of Care Code 54002 Subseq Hosp Care Lvl 2 Diagnoses Weakness R53.1 History of Clostridium difficile colitis Z86.19 Hypercalcemia E83.52 Depression F32.A Suicidal ideation R45.851 Hoarding behavior F42.3 S/P kidney transplant Z94.0 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
[2021-11-30] MEDS: azaTHIOprine 25 MG TAB PO SCH (08:41)
[2021-11-30] MEDS: LOSARTAN POTASSIUM 25 MG TAB PO SCH (08:41)
[2021-11-30] MEDS: VITAMIN B COMPLEX TAB PO SCH (08:41)
[2021-11-30] MEDS: HEPARIN SOD 5,000 UNIT/0.5 ML VIAL SQ SCH ×2 (08:41→21:02)
[2021-11-30] MEDS: NSS + 20MEQ KCL 20 MEQ/1,000 ML BAG IV SCH ×2 (11:00→23:48)
--- NOTE | 2021-11-30 14:07 | Communication Note ---
Date of Service: November 30, 2021 Consult received. Attempted to see patient on rounds in ED (boarding in psych pod pending inpatient bed) Patient with a history of transplant on Prograf, no formal psych hx on chart, not particularly cooperative with liaison nurse hx so far other than admit to self-inflicted wrist lac. Full consult to follow within approximately 24 hrs.
[2021-12-01 07:09] LABS: Basophils # (auto) 0.01 K/uL (0-0.2); Basophils % (auto) 0.2 %; Eosinophils # (auto) 0.28 K/uL (0-0.50); Eosinophils % (auto) 5.2 %; Hematocrit (blood only) 35.9 % (34.1-44.9); Hemoglobin 12.4 g/dl (12.0-16.0); Immature Granulocytes # (auto) 0.01 K/uL (0.00-0.02); Immature Granulocytes % (auto) 0.2 %; Lymphocytes # (auto) 1.77 K/uL (1.2-3.4); Mean Corpuscular Hgb Conc 34.5 g/dL (32.0-36.0); Mean Corpuscular Volume 89.8 fL (80.0-100.0); Mean Platelet Volume 11.5 fL (9.4-12.3); Monocytes # (auto) 0.51 K/uL (0.24-0.82); Monocytes % (auto) 9.5 %; Neutrophils # (auto) 2.79 K/uL (1.4-6.5); Neutrophils % (auto) 51.9 %; Platelet Count 154 K/uL (130-400); RDW Coefficient of Variation 14.6 % (11.5-14.5); RDW Standard Deviation 47.3 fL (36.4-46.3); White Blood Count 5.37 K/ul (4.8-10.8)
--- NOTE | 2021-12-01 07:26 | Hospitalist Progress Note ---
Date of Service December 01, 2021 Assessment & Plan (1) Weakness: Plan: 76 yo F Hx C diff, depression, s/p kidney and pancreatic transplant, HTN, GERD presented with weakness, abdominal pain, and suicidal ideation with self- injurious behavior. Weakness: Had COVID 11/06/2021, symptoms worsened 11/13 and was treated at [facility]. During that hospitalization rehab was recommended however did not qualify due to lack of participation in hospital rehab. On Friday cut bilateral wrists with superficial lacerations with kitchen knife, no emergent intervention needed. CT Abdomen without acute process, no change from previous study. C diff not performed due to no stool for 24 hours; highly unlikely to be C diff in this case given no BM for that long. Stool studies and UA/UCx ordered. Electrolytes normal. Fall precautions. PT and OT while admitted. Anticipate discharge to rehab as patient has been reported to have hoarding behaviors and reports of patient being unable to manage ADLs independently. Placement will likely be very challenging as patient has Psychiatric needs as well as medical needs. Case Management consulted. (2) Depression: Plan: Patient previously was on antidepressants but these were stopped several years ago. Depression somewhat illness-related, with Hx transplant of pancreas and kidney with multiple health complaints since that time. Recently patient is very depressed and slit her wrists bilaterally with superficial lacerations from a kitchen knife this week on Friday or Friday. Suicide precautions per protocol. Psychiatry consult requested and appreciate recommendations: will start modafinil today. (3) Mixed stress and urge urinary incontinence: Plan: UA and UCx ordered. Will trial oxybutynin 5mg daily. Consider Urology evaluation inpatient; patient is to have evaluation out patient however her ongoing incontinence has been one of patient's reasons for suicidal ideation, as she is having to change her clothes and sheets, and it restricts her ability to do any meaningful activities outside of the home. (4) Rectal urgency: Plan: Stool studies ordered. No localized lower limb motor weakness to suggest cauda equina syndrome. Could consider MRI L Spine. Will consult GI for consideration of colonoscopy if patient does not have findings on stool studies. (5) History of Clostridium difficile colitis: Plan: Patient does have history of C. difficile, however with no BM since admission. No indication for oral antibiotics at this time. (6) Hypercalcemia: Plan: Calcium improved from 10.2 -> 8.9 with IV fluids. Daily BMP. (7) Suicidal ideation: Plan: see above (8) Hoarding behavior: Plan: See above (9) S/P kidney transplant: Plan: Continue Prograf as directed; home medication. Continue Imuran. 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 (11) Hypertension: Plan: Continue losartan 25mg daily, with hydralazine as needed for SBP > 180. Echocardiogram in August with preserved left ventricular ejection fraction of 60 to 65%, no LVH, mild mitral regurgitation. (12) Esophageal reflux disease: Plan: Patient is not on any PPI or H2 nazario. Follow symptomatically. (13) DVT prophylaxis: Plan: Heparin 5000 units subcutaneously every 12 hours. Plan Code Status: FULL Admission and Anticipated Discharge Date Admission Date: November 29, 2021 Subjective No acute events overnight. Patient requests utensils for meals. She described her bowel issues today as rectal urgency moreso than pure incontinence; she can feel that she is going to have to go but it becomes an emergency and she often does not make it to a commode/restroom. With regard to her urinary issues, she notes mixed incontinence, with times where the urine will fall out when she stands, and other times when she has the urge to go and cannot hold it long enough. Review of Systems Constitutional: no fever and no chills Respiratory: no cough and no dyspnea Cardiovascular: no chest pain and no palpitations Gastrointestinal: no abdominal pain, no nausea and no vomiting Physical Exam Constitutional: WD/WN, vitals as above Gastrointestinal (Abdomen): normal bowel sounds, soft, nontender, no hepatosplenomegaly Skin: no rashes, warm and dry Psychiatric: Orientation: alert and oriented x 3 Affect: + depressed affect Results & Data Results & Data ([facility]) Vital Signs (Past 12 Hours) Vital Signs Pulse Resp BP Pulse Ox Pulse Ox O2 Del Method 12/01/21 06:26 94 12/01/21 06:25 61 17 130/63 94 12/01/21 05:48 60 17 175/83 H 94 12/01/21 01:00 67 18 159/70 H 97 Room Air 12/01/21 00:09 69 17 151/70 H 96 Room Air PG Care Time/CCT Total # of Minutes Spent Total Time Spent with Patient: Total time spent is greater than 50% in coordination of care (as documented) at patient's floor/unit and/or counseling patient: Coding Level of Care Code 96479 Subseq Hosp Care Lvl 3 Diagnoses Weakness R53.1 Depression F32.A Mixed stress and urge urinary incontinence N39.46 Rectal urgency R15.2 History of Clostridium difficile colitis Z86.19 Hypercalcemia E83.52 Suicidal ideation R45.851 Hoarding behavior F42.3 S/P kidney transplant Z94.0 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
[2021-12-01 07:46] LABS: Calcium 8.8 mg/dl (8.5-10.1); Creatinine Clr Calc Pharmacy 93.8 ml/min; Est GFR (African American) 110.4 ml/min; Est GFR (Non-African American) 95.3 ml/min; Potassium 2.9 mmol/L (3.5-5.1)
[2021-12-01] MEDS: azaTHIOprine 25 MG TAB PO SCH (09:22)
[2021-12-01] MEDS: VITAMIN B COMPLEX TAB PO SCH (09:23)
[2021-12-01] MEDS: TACROLIMUS 1 MG PO SCH ×2 (09:23→19:46)
[2021-12-01] MEDS: HEPARIN SOD 5,000 UNIT/0.5 ML VIAL SQ SCH ×2 (09:23→19:47)
[2021-12-01] MEDS: LOSARTAN POTASSIUM 25 MG TAB PO SCH (09:23)
[2021-12-01] MEDS: NSS + 20MEQ KCL 20 MEQ/1,000 ML BAG IV SCH (11:47)
--- NOTE | 2021-12-01 12:36 | Psychiatric Consultation ---
Date of Consultation December 01, 2021 Impression / Recommendations Impression 76 yo woman with worsening depression in context of functional decline and ongoing worsening chronic medical conditions now with recent suicide attempt via superficial cutting and ongoing SI. Given significant irritability and limited ability to tolerate prolonged interview remains unclear what interventions will offer most benefit for mood-will need to continue to assess benefit of more intensive rehab/PT through subacute rehab which offers supportive controlled setting versus geriatric psychiatric hospitalization but currently limited due to medical challenges/lack of ambulation/recent C. diff infections and still on contact precautions. Acute risk remains high given ongoing depression and SI. She consents to trial of stimulant to help with mood and energy. Reviewed risks/benefits/alternatives. Reviewed EKG from 11/29/21 (1) Depression: (2) Suicidal ideation: (3) Mixed stress and urge urinary incontinence: Plan -Initial focus on increasing energy and motivation, reviewed cardiac risks with hospitalist who feels she is stable for stimulant trial. Will start modafinil -Continue 1-on-1 with suicide precautions (can use plastic utensils to help with increasing po intake as she feels finger foods are not appetizing) -Psych liason to get collateral from her daughter -Encourage participation with PT/determination of ambulation status/any need for assistance devices and ongoing medical optimization of incontience Risk Factors Assessment Do You Have Access To A Gun?: No Psych History Identifying Data 76 yo woman with history of depression and multiple chronic medical conditions including worsening incontinence, recent C. 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 Chief Complaint "I don't know I just want to ". History of Present Illness Tunde has been experiencing worsening medical challenges, particularly incontinence and recent hospitalizations for C. diff. She was recently discharged home after declining to engage with PT during recent medical admission at [facility] and therefore did not meet insurance criteria for subacute rehab. Since being home she has continued to struggle with attending to ADLs and her mood has been very depressed. Earlier this week she cut her wrists stating "I thought I'd " and continues to have SI. She feels her SI is due to feeling worse but also states "I can't say" in regards to what would need to improve or change to improve her SI. She remains reluctant to engage with prolonged conversation becoming quickly anxious with questions stating "I can't follow you, you;re talking too fast" and later stating frustration with incontinence, and noted to be incontinent, making prolonged interview difficult. She states she has been unable to ambulate in recent days. Not motivated to engage with PT or OT stating "I don't know if I want to get better, I can't go on like this". Past Psychiatric History Outpatient Services: none currently Previous Psych Admissions: denies Do You Have Access To A Gun?: No History of Previous Suicide Attempt: Yes (cut herself earlier this week, attempt age 16) Past Medication Trials: unknown Allergies Allergy/AdvReac Type Severity Reaction Status Date / Time adhesive tape Allergy Unknown Verified 11/29/21 09:25 dexlansoprazole Allergy Unknown Verified 11/29/21 09:25 [From Dexilant] latex Allergy Unknown Verified 11/29/21 09:25 vancomycin Allergy Unknown Verified 11/29/21 09:25 ASPIRIN IN LARGE DOSES AdvReac MAKES HEAD Uncoded 11/29/21 09:25 SPIN Home Medications Medication Instructions Recorded Confirmed Type tacrolimus 1 mg capsule, 1 mg PO .COMPLEX 04/01/19 11/29/21 History immediate-release (Prograf) B-complex with vitamin C 1 tab PO DAILY 02/21/21 11/29/21 History blood sugar diagnostic (OneTouch #200 ea 02/21/21 11/29/21 Rx Ultra Test strips) blood-glucose meter (CollisionableTouch #1 ea 02/21/21 11/29/21 Rx Ultra2 Meter kit) lancets 30 gauge (OneTouch Delica #200 ea 02/21/21 11/29/21 Rx Plus Lancet) azathioprine 50 mg tablet (Imuran) 75 mg PO DAILY 11/29/21 11/29/21 History losartan 25 mg tablet (Cozaar) 25 mg PO DAILY 11/29/21 11/29/21 History Substance Abuse History denies Personal History Living Arrangements: Home ([facility]) Beliefs That Will Affect Care: None Patient History Medical History Esophageal reflux disease History of Clostridium difficile colitis Hoarding behavior Hyperlipidemia Hypertension Irritable bowel syndrome Lumbar degenerative disc disease Osteopenia Rheumatoid arthritis Urinary incontinence Vestibular neuronitis Surgical History History of arthroplasty of left knee Pancreas replaced by transplant (11/2002) S/P hysterectomy S/P kidney transplant (11/2002) Family History Brother Diabetes Father Coronary heart disease Diabetes Cancer Myocardial infarction, Onset Age: 39 Smoker Sister Diabetes Mother Diabetes Stroke Brother Prostate cancer Denies family history of Ovarian cancer Breast cancer Colorectal cancer Social History Smoking Status: Never smoker Second Hand Exposure: No; Do You Dip or Chew Tobacco: No; Tobacco Cessation Education Requested by Patient: No Hx Alcohol Use: No Hx Substance Use: No Preferred Language: Georgian Communication Ability: Effective Visual Impairment: Limited Hearing Ability: Hard of Hearing Rectifying Attendant Required: No Beliefs That Will Affect Care: None marital status: Single Current Living Situation: Alone current occupational status: retired 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 Other Information That Helps Us Care for You: No Feels Safe at Home: Yes Safety Concerns: Feels Safe At This Time caffeine: Yes during the past year weight has: remained stable Dental Care, Regularly: Yes Physical Activity Frequency: 3-4 Times per Week Seatbelt Use: always Sunscreen Use: No Assistive Devices: Cane, Walker and Other Assistive Devices Comment: shower bench Physical Exam Psychiatric: Orientation: alert and oriented x 3 Apperance: appropriately dressed and appropriately groomed Eye Contact: + poor eye contact Motor Behavior: no abnormal motor movements Speech: normal rate/rhythm/volume of speech Affect: + depressed affect and + irritable affect Mood: + depressed mood and + irritable mood Thought Process: + concrete thought process Thought Content: reality based without delusions Suicidal Thoughts: denies suicidal plan and denies suicidal intent; + reports suicidal thoughts (intermittent SI) Homicidal Thoughts: denies homicidal thoughts Hallucinations: no auditory hallucinations and no visual hallucinations Cognition: recent memory grossly intact, remote memory grossly intact, attention grossly intact and language grossly intact Estimated Intelligence: consistent with education level Insight: + impaired insight Judgement: + limited judgement Vital Signs (Past 24 Hours): Last Vital Signs Temp 36.7 C 11/29/21 11:07 Pulse 63 12/01/21 09:00 Resp 23 12/01/21 09:00 BP 161/82 H 12/01/21 09:00 Pulse Ox 94 12/01/21 09:00 O2 Del Method 12/01/21 07:00 O2 Flow Rate 4 11/29/21 13:19 Review of Systems All systems reviewed & are unremarkable except as noted in HPI & below Results & Data ([facility]) Medications Administered Azathioprine (Azathioprine 25 Mg Tab) 75 mg PO DAILY LEROY Stop: 12/30/21 08:59 Last Admin: 12/01/21 09:22 Dose: 75 mg Documented By: Admin: 11/30/21 08:41 Dose: 75 mg Documented By: MITESH Heparin Sodium (Porcine) (Heparin Sod 5,000 Unit/0.5 Ml Vial) 5,000 units SQ Q12 LEROY Stop: 12/29/21 20:59 Last Admin: 12/01/21 09:23 Dose: 5,000 units Documented By: Admin: 11/30/21 21:02 Dose: 5,000 units Documented By: Admin: 11/30/21 08:41 Dose: 5,000 units Documented By: Admin: 11/29/21 21:59 Dose: 5,000 units Documented By: JUANITA Potassium Chloride/Sodium Chloride (Normal Saline W/20 Meq Kcl) 20 meq in 1,000 mls @ 80 mls/hr IV .[id number] LEROY Stop: 12/29/21 20:34 Last Admin: 12/01/21 11:47 Dose: 80 mls/hr Documented By: Infusion: 12/01/21 11:47 Dose: 80 mls/hr Documented By: Admin: 11/30/21 23:48 Dose: 80 mls/hr Documented By: Infusion: 11/30/21 23:30 Dose: 80 mls/hr Documented By: Admin: 11/30/21 11:00 Dose: 80 mls/hr Documented By: Infusion: 11/30/21 10:44 Dose: 0 mls/hr Documented By: Admin: 11/29/21 21:59 Dose: 80 mls/hr Documented By: JUANITA Losartan Potassium (Losartan Potassium 25 Mg Tab) 25 mg PO DAILY LEROY Stop: 12/30/21 08:59 Last Admin: 12/01/21 09:23 Dose: 25 mg Documented By: Admin: 11/30/21 08:41 Dose: 25 mg Documented By: MITESH Tacrolimus (Pom - Tacrolimus 1 Mg Cap) 1 mg PO QAM LEROY Stop: 12/31/21 08:59 Last Admin: 12/01/21 09:23 Dose: 1 mg Documented By: RONNA Tacrolimus (Pom - Tacrolimus 1 Mg Cap) 2 mg PO PM LEROY Stop: 12/30/21 00:14 Last Admin: 11/30/21 21:04 Dose: 2 mg Documented By: Admin: 11/30/21 02:55 Dose: Not Given Documented By: DALTON Vitamin B Complex (Vitamin B Complex Tab) 1 tab PO DAILY LEROY Stop: 12/30/21 08:59 Last Admin: 12/01/21 09:23 Dose: 1 tab Documented By: Admin: 11/30/21 08:41 Dose: 1 tab Documented By: MITESH Coding Level of Care Code 12146 Inpt Consult Level 4 Diagnoses Depression F32.A Suicidal ideation R45.851 Mixed stress and urge urinary incontinence N39.46 Time Spent (min) 45
[2021-12-01] MEDS ORDERED: POTASSIUM CHLORIDE CRTAB 20 MEQ TABCR PO STA (13:06)
[2021-12-01] MEDS: POTASSIUM CHLORIDE / WTR 10 MEQ/100 ML PLCT IV SCH ×4 (14:10→15:42)
[2021-12-01] MEDS ORDERED: POTASSIUM CHLORIDE 20 MEQ/15 ML UDC PO STA (15:51)
[2021-12-01] MEDS: OXYBUTYNIN CHLORIDE XL 5 MG TABCR PO SCH (17:23)
[2021-12-02 05:44] LABS: Hematocrit (blood only) 36.8 % (34.1-44.9); Hemoglobin 12.6 g/dl (12.0-16.0); Mean Corpuscular Hemoglobin 30.8 pg (25.0-34.0); Mean Corpuscular Hgb Conc 34.2 g/dL (32.0-36.0); Mean Platelet Volume 11.9 fL (9.4-12.3); Platelet Count 82 K/uL (130-400); Platelet Estimate Decreased (Normal); RDW Coefficient of Variation 14.6 % (11.5-14.5); RDW Standard Deviation 47.8 fL (36.4-46.3); Red Blood Count 4.09 M/uL (3.93-5.22); White Blood Count 5.19 K/ul (4.8-10.8)
[2021-12-02 05:59] LABS: BUN Creatinine Ratio 15.9 (10-20); Calcium 9.1 mg/dl (8.5-10.1); Creatinine Clr Calc Pharmacy 62.5 ml/min; Est GFR (African American) 96.6 ml/min; Est GFR (Non-African American) 83.4 ml/min; Potassium 3.3 mmol/L (3.5-5.1)
--- NOTE | 2021-12-02 09:08 | Hospitalist Progress Note ---
Date of Service December 02, 2021 Assessment & Plan (1) Weakness: Plan: 76 yo F Hx C diff, depression, s/p kidney and pancreatic transplant, HTN, GERD presented with weakness, abdominal pain, and suicidal ideation with self- injurious behavior. Weakness: Had COVID 11/06/2021, symptoms worsened 11/13 and was treated at [facility]. During that hospitalization rehab was recommended however did not qualify due to lack of participation in hospital rehab. On Friday cut bilateral wrists with superficial lacerations with kitchen knife, no emergent intervention needed. CT Abdomen without acute process, no change from previous study. C diff not performed due to no stool for 24 hours; highly unlikely to be C diff in this case given no BM. Stool studies and UA/UCx ordered. Electrolytes normal. Fall precautions. PT and OT while admitted. Anticipate discharge to rehab as patient has been reported to have hoarding behaviors and reports of patient being unable to manage ADLs independently. Placement will likely be very challenging as patient has Psychiatric needs as well as medical needs. Case Management consulted. (2) Depression: Plan: Patient previously was on antidepressants but these were stopped several years ago. Depression somewhat illness-related, with Hx transplant of pancreas and kidney with multiple health complaints since that time. Recently patient is very depressed and slit her wrists bilaterally with superficial lacerations from a kitchen knife this week on Friday or Friday. This AM denies SI to myself and to Psychiatry; suicide precautions discontinued. Psychiatry consult requested and appreciate recommendations: modafinil started today with plan to increase dose in a few days if tolerated. (3) Mixed stress and urge urinary incontinence: Plan: UA and UCx ordered. Will trial oxybutynin 5mg daily for mixed incontinence. Consider Urology evaluation inpatient; patient is to have evaluation outpatient however her ongoing incontinence has been one of patient's reasons for suicidal ideation, as she is having to change her clothes and sheets frequently, and it restricts her ability to do any meaningful activities outside of the home. (4) Rectal urgency: Plan: Stool studies ordered. No localized lower limb motor weakness to suggest cauda equina syndrome. Could consider MRI L Spine. Will consult GI for consideration of colonoscopy if patient does not have findings on stool studies. (5) History of Clostridium difficile colitis: Plan: Patient does have history of C. difficile, however with no BM since admission. No indication for oral antibiotics at this time. (6) Hypercalcemia: Plan: Calcium improved from 10.2 -> 8.9 with IV fluids. Daily BMP. (7) Suicidal ideation: Plan: see above (8) Hoarding behavior: Plan: See above (9) S/P kidney transplant: Plan: Continue Prograf as directed; home medication. Continue Imuran. 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 (11) Hypertension: Plan: Continue losartan 25mg daily, with hydralazine as needed for SBP > 180. Echocardiogram in August with preserved left ventricular ejection fraction of 60 to 65%, no LVH, mild mitral regurgitation. (12) Esophageal reflux disease: Plan: Patient is not on any PPI or H2 nazario. Follow symptomatically. (13) DVT prophylaxis: Plan: Heparin 5000 units subcutaneously every 12 hours. Plan Code Status: FULL Dispo: transfer to Med/Surg Admission and Anticipated Discharge Date Admission Date: November 29, 2021 Subjective No acute events overnight. Patient reports feeling a bit better today, but when asked what feels better, she cannot qualify it. She denies SOB, chest pain, abdominal pain. Review of Systems Constitutional: no fever and no chills Respiratory: no cough and no dyspnea Cardiovascular: no chest pain and no palpitations Gastrointestinal: no abdominal pain, no nausea and no vomiting Physical Exam Constitutional: WD/WN, vitals as above Respiratory: normal respiratory effort, lungs clear to auscultation Cardiovascular: RRR, no murmur, no edema Gastrointestinal (Abdomen): normal bowel sounds, soft, nontender, no hepatosplenomegaly Skin: no rashes, warm and dry Psychiatric: Orientation: alert and oriented x 3 Affect: + depressed affect Results & Data Results & Data ([facility]) Vital Signs (Past 12 Hours) Vital Signs Pulse Resp BP Pulse Ox Pulse Ox O2 Del Method O2 Del Method 12/02/21 06:19 93 Room Air 12/02/21 02:15 70 20 122/45 L 92 Room Air 12/01/21 21:18 85 PG Care Time/CCT Total # of Minutes Spent Total Time Spent with Patient: Total time spent is greater than 50% in coordination of care (as documented) at patient's floor/unit and/or counseling patient: Coding Level of Care Code 90626 Subseq Hosp Care Lvl 2 Diagnoses Weakness R53.1 Depression F32.A Mixed stress and urge urinary incontinence N39.46 Rectal urgency R15.2 History of Clostridium difficile colitis Z86.19 Hypercalcemia E83.52 Suicidal ideation R45.851 Hoarding behavior F42.3 S/P kidney transplant Z94.0 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
[2021-12-02] MEDS: azaTHIOprine 25 MG TAB PO SCH (10:31)
[2021-12-02] MEDS: modafiniL 100 MG TAB PO SCH (10:32)
[2021-12-02] MEDS: VITAMIN B COMPLEX TAB PO SCH (10:32)
[2021-12-02] MEDS: LOSARTAN POTASSIUM 25 MG TAB PO SCH (10:32)
[2021-12-02] MEDS: OXYBUTYNIN CHLORIDE XL 5 MG TABCR PO SCH (10:32)
[2021-12-02] MEDS: TACROLIMUS 1 MG PO SCH ×2 (10:32→20:23)
[2021-12-02] MEDS: HEPARIN SOD 5,000 UNIT/0.5 ML VIAL SQ SCH ×2 (10:32→20:20)
--- NOTE | 2021-12-02 12:54 | Psychiatric Progress Note ---
Date of Service December 02, 2021 Impression / Recommendations Impression 76 yo woman with worsening depression in context of functional decline and ongoing worsening chronic medical conditions now with recent suicide attempt via superficial cutting and ongoing SI. Given significant irritability and limited ability to tolerate prolonged interview remains unclear what interventions will offer most benefit for mood-will need to continue to assess benefit of more intensive rehab/PT through subacute rehab which offers supportive controlled setting versus geriatric psychiatric hospitalization but currently limited due to medical challenges/lack of ambulation/recent C. diff infections and still on contact precautions. Acute risk remains high given ongoing depression and SI. 12/02/21: Denying SI today and able to safety contract to alert nursing should SI re-occur. Remains depressed. Tolerating modafinil without side effects. Encourage PT to help with behavioral activation. (1) Depression: (2) Mixed stress and urge urinary incontinence: Plan 12/02/21: -Consider discontinuing 1-on-1 and suicide precautions -Continue with modafinil 50mg qd -Psych liason working on getting collateral from daughter 12/01/21: -Initial focus on increasing energy and motivation, reviewed cardiac risks with hospitalist who feels she is stable for stimulant trial. Will start modafinil -Continue 1-on-1 with suicide precautions (can use plastic utensils to help with increasing po intake as she feels finger foods are not appetizing) -Psych liason to get collateral from her daughter -Encourage participation with PT/determination of ambulation status/any need for assistance devices and ongoing medical optimization of incontience Risk Factors Assessment Do You Have Access To A Gun?: No Interval History Identifying Information 76 yo woman with history of depression and multiple chronic medical conditions including worsening incontinence, recent C. 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 Chief Complaint "I'm not good". Subjective Subjective Patient was seen & assessed and interval progress reviewed. Continues to lie in bed all day. Not motivated to do anything, declines offer for therapeutic activities. Feels she got weaker this summer and not wanting to move around due to the heat and not having AC at home. Mood remains depressed but denies any SI today. States she doesn't know why her SI has improved but that it has. Able to safety contract to alert nursing should SI re-occur. Denies any side effects from modafinil. Physical Exam Psychiatric Orientation: alert and oriented x 3 Apperance: appropriately dressed and appropriately groomed Eye Contact: + poor eye contact Motor Behavior: no abnormal motor movements Speech: normal rate/rhythm/volume of speech Affect: + constricted affect Mood: + depressed mood and + irritable mood Thought Process: + concrete thought process Thought Content: reality based without delusions Suicidal Thoughts: denies suicidal thoughts, denies suicidal plan and denies suicidal intent Homicidal Thoughts: denies homicidal thoughts Hallucinations: no auditory hallucinations and no visual hallucinations Cognition: recent memory grossly intact, remote memory grossly intact, attention grossly intact and language grossly intact Estimated Intelligence: consistent with education level Insight: + impaired insight Judgement: + limited judgement Vital Signs (Past 24 Hours) Last Vital Signs Temp 36.7 C 11/29/21 11:07 Pulse 67 12/02/21 10:30 Resp 20 12/02/21 10:30 BP 151/68 H 12/02/21 10:30 Pulse Ox 93 12/02/21 10:30 O2 Del Method 12/02/21 07:30 O2 Flow Rate 4 11/29/21 13:19 Results & Data ([facility]) Laboratory Results Laboratory Results - last 24 hr 12/02/21 12/02/21 05:04 05:04 WBC 5.19 RBC 4.09 Hgb 12.6 Hct 36.8 MCV 90.0 MCH 30.8 MCHC 34.2 RDW Std Deviation 47.8 H RDW Coeff of Geo 14.6 H Plt Count 82 L MPV 11.9 Platelet Estimate Decreased L Sodium 135 L Potassium 3.3 L Chloride 104 Carbon Dioxide 24 Anion Gap 7 BUN 11 Creatinine 0.69 Est Cr Clr Drug Dosing 62.5 Est GFR ( Amer) 96.6 Est GFR (Non-Af Amer) 83.4 BUN/Creatinine Ratio 15.9 Glucose 101 H Calcium 9.1 Current Inpatient Medications Current Inpatient Medications: Current Inpatient Medications Acetaminophen (Acetaminophen 325 Mg Tab) 650 mg PO Q4H PRN PRN Reason: Pain or Fever Stop: 12/29/21 20:34 Al Hydrox/Mg Hydrox/Simethicone (Aluminum/Magnesium Susp 30 Ml Udc) 15 ml PO Q4H PRN PRN Reason: Dyspepsia Stop: 12/29/21 20:34 Azathioprine (Azathioprine 25 Mg Tab) 75 mg PO DAILY LEROY Stop: 10/16/22 08:59 Last Admin: 12/02/21 10:31 Dose: 75 mg Heparin Sodium (Porcine) (Heparin Sod 5,000 Unit/0.5 Ml Vial) 5,000 units SQ Q12 LEROY Stop: 12/29/21 20:59 Last Admin: 12/02/21 10:32 Dose: 5,000 units Hydralazine HCl (Hydralazine Hcl 20 Mg/Ml Vial) 5 mg IV Q6H PRN PRN Reason: Blood Pressure - High Stop: 12/29/21 20:34 Losartan Potassium (Losartan Potassium 25 Mg Tab) 25 mg PO DAILY LEROY Stop: 12/30/21 08:59 Last Admin: 12/02/21 10:32 Dose: 25 mg Magnesium Hydroxide (Magnesium Hydroxide Susp 30 Ml Udc) 30 ml PO Q12H PRN PRN Reason: Constipation Stop: 12/29/21 20:34 Modafinil (Modafinil 100 Mg Tab) 50 mg PO QAM LEROY Stop: 01/01/22 08:59 Last Admin: 12/02/21 10:32 Dose: 50 mg Ondansetron HCl (Ondansetron Inj 2 Mg/Ml 2 Ml Vial) 4 mg IV Q6H PRN PRN Reason: Nausea Stop: 12/29/21 20:34 Oxybutynin Chloride (Oxybutynin Chloride Xl 5 Mg Tabcr) 5 mg PO QAM [facility] Stop: 12/31/21 14:44 Last Admin: 12/02/21 10:32 Dose: 5 mg Tacrolimus (Pom - Tacrolimus 1 Mg Cap) 1 mg PO QAM LEROY Stop: 12/31/21 08:59 Last Admin: 12/02/21 10:32 Dose: 1 mg Tacrolimus (Pom - Tacrolimus 1 Mg Cap) 2 mg PO PM LEROY Stop: 12/30/21 00:14 Last Admin: 12/01/21 19:46 Dose: 2 mg Vitamin B Complex (Vitamin B Complex Tab) 1 tab PO DAILY LEROY Stop: 12/30/21 08:59 Last Admin: 12/02/21 10:32 Dose: 1 tab
[2021-12-03] MEDS: MAGNESIUM HYDROXIDE SUSP 30 ML UDC PO PRN (05:22)
[2021-12-03 05:29] LABS: Appearance Urine Turbid (Clear); Bacteria Urine Automated 4+ (Negative); Bilirubin Urine Negative (Negative); Blood Urine Negative (Negative); Color Urine Dark Yellow; Epithelial Cell Urine Auto 20-30 /lpf (0-5); Glucose Urine UA Negative (Negative); Ketones Urine Trace (Negative); Leukocyte Esterase Urine 3+ (Negative); Nitrite Urine Positive (Negative); Specific Gravity Urine 1.017 (1.000-1.030); Urobilinogen Urine Positive (Negative); WBC Urine Automated >30 /hpf (0-5); pH Urine >= 9.0 (4.5-7.5)
[2021-12-03 05:30] LABS: Protein Urine 2+ (Negative)
[2021-12-03 05:46] LABS: Calcium Oxalate Crystals Urine Present (None Prsent); RBC Urine Automated 0-4 /hpf (0-4)
[2021-12-03 07:15] LABS: Calcium 9.4 mg/dl (8.5-10.1); Creatinine Clr Calc Pharmacy 61.6 ml/min; Est GFR (African American) 96.2 ml/min
[2021-12-03] MEDS: azaTHIOprine 25 MG TAB PO SCH (09:08)
[2021-12-03] MEDS: LOSARTAN POTASSIUM 25 MG TAB PO SCH (09:08)
[2021-12-03] MEDS: VITAMIN B COMPLEX TAB PO SCH (09:08)
[2021-12-03] MEDS: OXYBUTYNIN CHLORIDE XL 5 MG TABCR PO SCH (09:09)
[2021-12-03] MEDS: HEPARIN SOD 5,000 UNIT/0.5 ML VIAL SQ SCH ×2 (09:09→20:10)
[2021-12-03] MEDS: TACROLIMUS 1 MG PO SCH ×2 (09:09→20:10)
[2021-12-03] MEDS: modafiniL 100 MG TAB PO SCH (09:12)
--- NOTE | 2021-12-03 12:45 | Psychiatric Progress Note ---
Date of Service December 03, 2021 Impression / Recommendations Impression 76 yo woman with worsening depression in context of functional decline and ongoing worsening chronic medical conditions now with recent suicide attempt via superficial cutting and ongoing SI. Collateral from patient's daughter supports adjustment disorder with depressed mood with biggest contribution due to deconditioned state following COVID, UTI and C. diff. No longer with SI but remains depressed with poor motivation. Using modafinil to target this. Subacute rehab which offers supportive controlled setting felt to be the most appropriate treatment at this point once she is able to consistently show engagement. Acute risk is now low given denial of SI but still with depressed mood, ongoing PT/OT and medical workup to improve weakness felt to be most significant modifiable risk factor to address with goal of subacute rehab once medically stable. 12/03/21: Continues to deny SI, remains depressed and irritable. She consents to increasing modafinil to continue to target lack of motivation, low energy, depression, weakness on short-term basis to help with behavioral activation and regaining strength. Consider starting SSRI if symptoms persist. Tolerating modafinil without side effects, no evidence of cardiac symptoms. Encourage PT to help with behavioral activation. (1) Depression: (2) Mixed stress and urge urinary incontinence: Plan 12/03/21: -Increase modafinil to 100mg qd if hospitalist feels safe/appropriate (defer given on telemetry) 12/02/21: -Consider discontinuing 1-on-1 and suicide precautions -Continue with modafinil 50mg qd -Psych liason working on getting collateral from daughter 12/01/21: -Initial focus on increasing energy and motivation, reviewed cardiac risks with hospitalist who feels she is stable for stimulant trial. Will start modafinil -Continue 1-on-1 with suicide precautions (can use plastic utensils to help with increasing po intake as she feels finger foods are not appetizing) -Psych liason to get collateral from her daughter -Encourage participation with PT/determination of ambulation status/any need for assistance devices and ongoing medical optimization of incontinence Risk Factors Assessment Do You Have Access To A Gun?: No Interval History Identifying Information 76 yo woman with history of depression and multiple chronic medical conditions including worsening incontinence, recent C. 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 Chief Complaint "I'm irritated". Review of Systems Notes endorses poor sleep, unclear if eating well Subjective Subjective Patient was seen & assessed and interval progress reviewed. Per nursing notes remains in normal sinus rhythm on telemetry. She denies any side effects from the modafinil. Today reports she is "tired" and "irritated" as she was transferred from ED to floor after she feel asleep and found this disruptive. Denies SI. Continues to lie in bed with limited engagement. Says she is willing to try to work with PT/OT. Becomes frustrated with questions as she wants to sleep and tells me "leave me alone". Physical Exam Psychiatric Orientation: alert and oriented x 3 Apperance: appropriately dressed and appropriately groomed Eye Contact: + poor eye contact Motor Behavior: no abnormal motor movements Speech: normal rate/rhythm/volume of speech Affect: + depressed affect, + irritable affect and + constricted affect Mood: + depressed mood and + irritable mood Thought Process: + concrete thought process Thought Content: reality based without delusions Suicidal Thoughts: denies suicidal thoughts, denies suicidal plan and denies suicidal intent Homicidal Thoughts: denies homicidal thoughts Hallucinations: no auditory hallucinations and no visual hallucinations Cognition: recent memory grossly intact, remote memory grossly intact, attention grossly intact and language grossly intact Estimated Intelligence: consistent with education level Insight: + impaired insight Judgement: + limited judgement Vital Signs (Past 24 Hours) Last Vital Signs Temp 36.7 C 12/03/21 07:51 Pulse 66 12/03/21 07:51 Resp 16 12/03/21 07:51 BP 137/74 12/03/21 07:51 Pulse Ox 96 12/03/21 07:51 O2 Del Method 12/03/21 07:51 O2 Flow Rate 4 11/29/21 13:19 Results & Data ([facility]) Laboratory Results Laboratory Results - last 24 hr 12/03/21 12/03/21 12/03/21 01:25 06:32 08:13 Sodium 136 Potassium 3.0 L Chloride 103 Carbon Dioxide 28 Anion Gap 5 BUN 14 Creatinine 0.70 Est Cr Clr Drug Dosing 61.6 Est GFR ( Amer) 96.2 Est GFR (Non-Af Amer) 83.0 BUN/Creatinine Ratio 20.0 Glucose 127 H POC Glucose 99 119 H Calcium 9.4 Urine Color Urine Appearance Urine pH Ur Specific [place] Urine Protein Urine Glucose (UA) Urine Ketones Urine Blood Urine Nitrite Urine Bilirubin Urine Urobilinogen Ur Leukocyte Esterase Urine WBC (Auto) Urine RBC (Auto) U Hyaline Cast (Auto) U Epithel Cells (Auto) Urine Bacteria (Auto) Urine Crystals Calcium Oxalate Crystal Urine Yeast Stl C. cayetanensis PCR Stool Rotavirus A PCR Stl Adenov F PCR Stool Astrovirus (PCR) Stool Campylobacter PCR Stl C. diff Tox A/B PCR Stool Cryptosporidium PCR Stl E.coli Shiga Tox PCR Stl Enterotoxigenic E PCR Stool EAEC (PCR) Stl E. histolytica PCR Stool Giardia Lamblia PCR Stool Salmonella PCR Stool Sapovirus (PCR) Stl P. shigelloides PCR Stl Shigella/EIEC PCR St Y.enterocolitica PCR Stool Vibrio (PCR) Stl Vibrio cholerae PCR Stl Norovirus GI/GII PCR Giardia Antigen 12/03/21 12/03/21 12/03/21 12:30 12:30 Unknown Sodium Potassium Chloride Carbon Dioxide Anion Gap BUN Creatinine Est Cr Clr Drug Dosing Est GFR ( Amer) Est GFR (Non-Af Amer) BUN/Creatinine Ratio Glucose POC Glucose Calcium Urine Color Dark Yellow Urine Appearance Turbid A Urine pH >= 9.0 H Ur Specific [place] 1.017 Urine Protein 2+ H Urine Glucose (UA) Negative Urine Ketones Trace H Urine Blood Negative Urine Nitrite Positive A Urine Bilirubin Negative Urine Urobilinogen Positive H Ur Leukocyte Esterase 3+ H Urine WBC (Auto) >30 H Urine RBC (Auto) 0-4 U Hyaline Cast (Auto) 1-5 U Epithel Cells (Auto) 20-30 H Urine Bacteria (Auto) 4+ H Urine Crystals Not Reportable Calcium Oxalate Crystal Present A Urine Yeast Not Reportable Stl C. cayetanensis PCR Pending Stool Rotavirus A PCR Pending Stl Adenov F 40 PCR Pending Stool Astrovirus (PCR) Pending Stool Campylobacter PCR Pending Stl C. diff Tox A/B PCR Pending Stool Cryptosporidium PCR Pending Stl E.coli Shiga Tox PCR Pending Stl Enterotoxigenic E PCR Pending Stool EAEC (PCR) Pending Stl E. histolytica PCR Pending Stool Giardia Lamblia PCR Pending Stool Salmonella PCR Pending Stool Sapovirus (PCR) Pending Stl P. shigelloides PCR Pending Stl Shigella/EIEC PCR Pending St Y.enterocolitica PCR Pending Stool Vibrio (PCR) Pending Stl Vibrio cholerae PCR Pending Stl Norovirus GI/GII PCR Pending Giardia Antigen Pending Current Inpatient Medications Current Inpatient Medications: Current Inpatient Medications Acetaminophen (Acetaminophen 325 Mg Tab) 650 mg PO Q4H PRN PRN Reason: Pain or Fever Stop: 12/29/21 20:34 Al Hydrox/Mg Hydrox/Simethicone (Aluminum/Magnesium Susp 30 Ml Udc) 15 ml PO Q4H PRN PRN Reason: Dyspepsia Stop: 12/29/21 20:34 Azathioprine (Azathioprine 25 Mg Tab) 75 mg PO DAILY LEROY Stop: 12/30/21 08:59 Last Admin: 12/03/21 09:08 Dose: 75 mg Heparin Sodium (Porcine) (Heparin Sod 5,000 Unit/0.5 Ml Vial) 5,000 units SQ Q12 LEROY Stop: 12/29/21 20:59 Last Admin: 12/03/21 09:09 Dose: 5,000 units Hydralazine HCl (Hydralazine Hcl 20 Mg/Ml Vial) 5 mg IV Q6H PRN PRN Reason: Blood Pressure - High Stop: 12/29/21 20:34 Losartan Potassium (Losartan Potassium 25 Mg Tab) 25 mg PO DAILY LEROY Stop: 12/30/21 08:59 Last Admin: 12/03/21 09:08 Dose: 25 mg Magnesium Hydroxide (Magnesium Hydroxide Susp 30 Ml Udc) 30 ml PO Q12H PRN PRN Reason: Constipation Stop: 12/29/21 20:34 Last Admin: 12/03/21 05:22 Dose: 30 ml Modafinil (Modafinil 100 Mg Tab) 50 mg PO QAM LEROY Stop: 01/01/22 08:59 Last Admin: 12/03/21 09:12 Dose: 50 mg Ondansetron HCl (Ondansetron Inj 2 Mg/Ml 2 Ml Vial) 4 mg IV Q6H PRN PRN Reason: Nausea Stop: 12/29/21 20:34 Oxybutynin Chloride (Oxybutynin Chloride Xl 5 Mg Tabcr) 5 mg PO QAM [facility] Stop: 12/31/21 14:44 Last Admin: 12/03/21 09:09 Dose: 5 mg Tacrolimus (Pom - Tacrolimus 1 Mg Cap) 1 mg PO QAM LEROY Stop: 12/31/21 08:59 Last Admin: 12/03/21 09:09 Dose: 1 mg Tacrolimus (Pom - Tacrolimus 1 Mg Cap) 2 mg PO PM LEROY Stop: 12/30/21 00:14 Last Admin: 12/02/21 20:23 Dose: 2 mg Vitamin B Complex (Vitamin B Complex Tab) 1 tab PO DAILY LEROY Stop: 12/30/21 08:59 Last Admin: 12/03/21 09:08 Dose: 1 tab
--- NOTE | 2021-12-03 13:31 | Hospitalist Progress Note ---
Date of Service December 03, 2021 Assessment & Plan (1) Weakness: Plan: Had COVID 11/06/2021, symptoms worsened 11/13 and was treated at [facility]. During that hospitalization rehab was recommended however did not qualify due to lack of participation in hospital rehab. On Friday cut bilateral wrists with superficial lacerations with kitchen knife, no emergent intervention needed. - C diff not performed due to no stool for 24 hours; highly unlikely to be C diff in this case given no BM. - Stool studies and UA/UCx ordered - pending. - PT and OT while admitted. -> Anticipate discharge to rehab as patient has been reported to have hoarding behaviors and reports of patient being unable to manage ADLs independently. Placement will likely be very challenging as patient has Psychiatric needs as well as medical needs. Case Management consulted. (2) Depression: Plan: Patient previously was on antidepressants but these were stopped several years ago. Depression somewhat illness-related, with Hx transplant of pancreas and kidney with multiple health complaints since that time. Recently patient is very depressed and slit her wrists bilaterally with superficial lacerations from a kitchen knife this week on Friday or Friday. - Psychiatry consult requested and appreciate recommendations: modafinil increase to 100 mg on 12/03. (3) Mixed stress and urge urinary incontinence: Plan: UA and UCx ordered on admission. UA was dirty; urine cx pending. - Trialing oxybutynin 5mg daily for mixed incontinence. - Consider urology evaluation inpatient; patient is to have evaluation outpatient however her ongoing incontinence has been one of patient's reasons for suicidal ideation, as she is having to change her clothes and sheets frequently, and it restricts her ability to do any meaningful activities outside of the home. (4) Rectal urgency: Plan: No localized lower limb motor weakness to suggest cauda equina syndrome. - Stool studies ordered - pending - Could consider MRI L Spine. (5) History of Clostridium difficile colitis: Plan: Patient does have history of C. difficile, however with no BM since admission. No indication for oral antibiotics at this time. - Monitor (6) Suicidal ideation: Plan: See above (7) Hoarding behavior: Plan: See above (8) S/P kidney transplant: Plan: Baseline Cr ~0.5 - 0.8. Presently at baseline. - Continue Prograf as directed; home medication. - Continue Imuran. 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 (10) Hypertension: Plan: BP is 135/75 today. - Continue losartan 25mg daily (11) Esophageal reflux disease: Plan: Patient is not on any PPI or H2 nazario. Follow symptomatically. (12) DVT prophylaxis: Plan: Heparin 5000 units subcutaneously every 12 hours. Plan Code Status: FULL Dispo: transfer to Med/Surg Admission and Anticipated Discharge Date Admission Date: November 29, 2021 Subjective No major issues overnight. The patient is fairly withdrawn for me today. She reports she is tired because people keep moving her around. She denies any fevers/chills, chest pain, shortness of breath, abdominal pain, nausea, or vomiting. Reports her appetite is fairly low. Physical Exam Constitutional: WD/WN, vitals as above Eyes: EOM intact bilaterally; no conjunctival abnormality ENMT: external ear and nose normal, oropharynx normal Neck: trachea midline, no thyromegaly normal visual inspection Respiratory: normal respiratory effort, lungs clear to auscultation no respiratory distress Cardiovascular: RRR, no murmur, no edema Gastrointestinal (Abdomen): Inspection/Auscultation: abdomen normal to inspection; abdomen not distended Musculoskeletal: no cyanosis or clubbing, extremities motor strength 5/5 Skin: no rashes, warm and dry Neurologic: moves all extremities and awake Psychiatric: Orientation: alert, oriented to person and cooperative Results & Data Results & Data ([facility]) Vital Signs (Past 12 Hours) Vital Signs Temp Pulse Resp BP Pulse Ox O2 Del Method 12/03/21 07:51 36.7 C 66 16 137/74 96 Room Air PG Care Time/CCT Total # of Minutes Spent Total Time Spent with Patient: Total time spent is greater than 50% in coordination of care (as documented) at patient's floor/unit and/or counseling patient: Coding Level of Care Code 59452 Subseq Hosp Care Lvl 2 Diagnoses Weakness R53.1 Depression F32.A Mixed stress and urge urinary incontinence N39.46 Rectal urgency R15.2 History of Clostridium difficile colitis Z86.19 Suicidal ideation R45.851 Hoarding behavior F42.3 S/P kidney transplant Z94.0 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
[2021-12-03 14:44] LABS: Adenovirus F 40/41 PCR Not Detected (NotDetected); Astrovirus PCR Not Detected (NotDetected); Campylobacter PCR Not Detected (NotDetected); Clostridium diff Toxin A/B PCR Not Detected (NotDetected); Cryptosporidium PCR Not Detected (NotDetected); Cyclospora cayetanensis PCR Not Detected (NotDetected); Entamoeba histolytica PCR Not Detected (NotDetected); Enteroaggregative E.coli(EAEC) Not Detected (NotDetected); Enteropathogenic E.coli (EPEC) Not Detected (NotDetected); Enterotoxigenic E.coli (ETEC) Not Detected (NotDetected); Giardia lamblia PCR Not Detected (NotDetected); Norovirus GI/GII PCR Not Detected (NotDetected); Plesiomonas shigelloides PCR Not Detected (NotDetected); Rotavirus A PCR Not Detected (NotDetected); Salmonella PCR Not Detected (NotDetected); Sapovirus PCR Not Detected (NotDetected); Shiga-like Toxin E.coli (STEC) Not Detected (NotDetected); Shigella/Enteroinvasive E.coli Not Detected (NotDetected); Vibrio cholerae PCR Not Detected (NotDetected); Vibrio species PCR Not Detected (NotDetected); Yersinia enterocolitica PCR Not Detected (NotDetected)
[2021-12-03] MEDS ORDERED: POTASSIUM CHLORIDE CRTAB 20 MEQ TABCR PO STA (19:05)
[2021-12-04 06:14] LABS: Hemoglobin 12.6 g/dl (12.0-16.0); Mean Corpuscular Hemoglobin 31.3 pg (25.0-34.0); Mean Corpuscular Volume 89.6 fL (80.0-100.0); Mean Platelet Volume 11.7 fL (9.4-12.3); Platelet Count 172 K/uL (130-400); RDW Coefficient of Variation 14.7 % (11.5-14.5); RDW Standard Deviation 47.8 fL (36.4-46.3); Red Blood Count 4.02 M/uL (3.93-5.22)
[2021-12-04 06:31] LABS: BUN Creatinine Ratio 19.1 (10-20); Calcium 9.4 mg/dl (8.5-10.1); Creatinine Clr Calc Pharmacy 63.4 ml/min; Est GFR (African American) 97.1 ml/min; Est GFR (Non-African American) 83.8 ml/min; Potassium 3.8 mmol/L (3.5-5.1)
[2021-12-04] MEDS: azaTHIOprine 25 MG TAB PO SCH (08:26)
[2021-12-04] MEDS: OXYBUTYNIN CHLORIDE XL 5 MG TABCR PO SCH (08:26)
[2021-12-04] MEDS: LOSARTAN POTASSIUM 25 MG TAB PO SCH (08:26)
[2021-12-04] MEDS: VITAMIN B COMPLEX TAB PO SCH (08:26)
[2021-12-04] MEDS: HEPARIN SOD 5,000 UNIT/0.5 ML VIAL SQ SCH ×2 (08:27→20:48)
[2021-12-04] MEDS: TACROLIMUS 1 MG PO SCH ×2 (08:27→20:48)
[2021-12-04] MEDS: modafiniL 100 MG TAB PO SCH (08:32)
--- NOTE | 2021-12-04 14:29 | Hospitalist Progress Note ---
Date of Service December 04, 2021 Assessment & Plan (1) Weakness: Plan: Had COVID 11/06/2021, symptoms worsened 11/[address] [facility]. During that hospitalization rehab was recommended however did not qualify due to lack of participation in hospital rehab. On Friday cut bilateral wrists with superficial lacerations with kitchen knife, no emergent intervention needed. - Stool studies negative on 12/03. UA/UCx ordered - Growing Gram (-) rods. - PT and OT while admitted. -> Anticipate discharge to rehab as patient has been reported to have hoarding behaviors and reports of patient being unable to manage ADLs independently. Placement will likely be very challenging as patient has psychiatric needs as well as medical needs. Discussed with Case Management today. No success yet today. (2) Depression: Plan: Patient previously was on antidepressants but these were stopped several years ago. Depression somewhat illness-related, with Hx transplant of pancreas and kidney with multiple health complaints since that time. Recently patient is very depressed and slit her wrists bilaterally with superficial lacerations from a kitchen knife this week on Friday or Friday. - Psychiatry consult requested and appreciate recommendations: modafinil increased to 100 mg on 12/03. (3) Mixed stress and urge urinary incontinence: Plan: UA and UCx ordered on admission. UA was dirty; urine cx pending. - Trialing oxybutynin 5mg daily for mixed incontinence. (4) Rectal urgency: Plan: No localized lower limb motor weakness to suggest cauda equina syndrome. - Stool studies ordered - negative on 12/03 - Could consider MRI L Spine. (5) History of Clostridium difficile colitis: Plan: Patient does have history of C. difficile, however with no BM since admission. No indication for oral antibiotics at this time. - Monitor (6) Suicidal ideation: Plan: See above (7) Hoarding behavior: Plan: See above (8) S/P kidney transplant: Plan: Baseline Cr ~0.5 - 0.8. Presently at baseline. - Continue Prograf as directed; home medication. - Continue Imuran. 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 (10) Hypertension: Plan: BP is 125/60 today. - Continue losartan 25mg daily (11) Esophageal reflux disease: Plan: Patient is not on any PPI or H2 nazario. Follow symptomatically. (12) DVT prophylaxis: Plan: Heparin 5000 units subcutaneously every 12 hours. Plan Code Status: FULL Dispo: transfer to Med/Surg Admission and Anticipated Discharge Date Admission Date: November 29, 2021 Subjective No change today in her complaints. She feels she just has "no stamina." She feels she is being "psycho-active" medications and does not want them. Reports no fevers/chills, chest pain, shortness of breath, abdominal pain, nausea, or vomiting. Physical Exam Constitutional: WD/WN, vitals as above Eyes: EOM intact bilaterally; no conjunctival abnormality ENMT: external ear and nose normal, oropharynx normal Neck: trachea midline, no thyromegaly normal visual inspection Respiratory: normal respiratory effort, lungs clear to auscultation no respiratory distress Cardiovascular: RRR, no murmur, no edema Gastrointestinal (Abdomen): Inspection/Auscultation: abdomen normal to inspection; abdomen not distended Musculoskeletal: no cyanosis or clubbing, extremities motor strength 5/5 Skin: no rashes, warm and dry Neurologic: moves all extremities and awake Psychiatric: Orientation: alert, oriented to person and cooperative Results & Data Results & Data ([facility]) Vital Signs (Past 12 Hours) Vital Signs Temp Pulse Resp BP Pulse Ox O2 Del Method 12/04/21 07:32 36.7 C 73 18 124/59 L 95 Room Air 12/04/21 03:01 36.7 C 68 19 132/73 94 Room Air PG Care Time/CCT Total # of Minutes Spent Total Time Spent with Patient: Total time spent is greater than 50% in coordination of care (as documented) at patient's floor/unit and/or counseling patient: Coding Level of Care Code 76320 Subseq Hosp Care Lvl 2 Diagnoses Weakness R53.1 Depression F32.A Mixed stress and urge urinary incontinence N39.46 Rectal urgency R15.2 History of Clostridium difficile colitis Z86.19 Suicidal ideation R45.851 Hoarding behavior F42.3 S/P kidney transplant Z94.0 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
--- NOTE | 2021-12-04 15:03 | Psychiatric Progress Note ---
Date of Service December 04, 2021 Impression / Recommendations Impression 76 yo woman with worsening depression in context of functional decline and ongoing worsening chronic medical conditions now with recent suicide attempt via superficial cutting and ongoing SI. Collateral from patient's daughter supports adjustment disorder with depressed mood with biggest contribution due to deconditioned state following COVID, UTI and C. diff. No longer with SI but remains depressed with poor motivation. Using modafinil to target this. Subacute rehab which offers supportive controlled setting felt to be the most appropriate treatment at this point once she is able to consistently show engagement. Acute risk is now low given denial of SI but still with depressed mood, ongoing PT/OT and medical workup to improve weakness felt to be most significant modifiable risk factor to address with goal of subacute rehab once medically stable. 12/04/21: Slight improvement in subjective mood today, better eye contact, still remaining in bed most of the day and ongoing frustration with her recent worsening medical challenges. Tolerating modafinil. (1) Depression: (2) Mixed stress and urge urinary incontinence: Plan 12/04/21: -Continue with modafinil 12/03/21: -Increase modafinil to 100mg qd if hospitalist feels safe/appropriate (defer given on telemetry) 12/02/21: -Consider discontinuing 1-on-1 and suicide precautions -Continue with modafinil 50mg qd -Psych liason working on getting collateral from daughter 12/01/21: -Initial focus on increasing energy and motivation, reviewed cardiac risks with hospitalist who feels she is stable for stimulant trial. Will start modafinil -Continue 1-on-1 with suicide precautions (can use plastic utensils to help with increasing po intake as she feels finger foods are not appetizing) -Psych liason to get collateral from her daughter -Encourage participation with PT/determination of ambulation status/any need for assistance devices and ongoing medical optimization of incontinence Risk Factors Assessment Do You Have Access To A Gun?: No Interval History Identifying Information 76 yo woman with history of depression and multiple chronic medical conditions including worsening incontinence, recent C. 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 Chief Complaint "I'm ok". Review of Systems Notes see subjective Subjective Subjective Patient was seen & assessed and interval progress reviewed. Has her eyes oepn today and reports her mood is "ok". Didn't sleep well which she attributes to her roommate requiring interventions overnight. Poor appetite which she att ributes to "can't taste anything" but eating her meals. Denies SI. No side effects from modafinil but feels it makes her mind "blank" but also tells me this is what is making her feel less depressed and why she feels she is not experiencing any SI so agrees to continue it for a few more days to see if it helps boost her mood and then we could stop it. Says she was out of bed with walker today to use bathroom. Declines having me open her shades as she says the sun hurts her eyes. Physical Exam Psychiatric Orientation: alert, oriented x 3, oriented to person and cooperative Apperance: appropriately dressed and appropriately groomed Motor Behavior: no abnormal motor movements Speech: normal rate/rhythm/volume of speech Affect: + constricted affect Mood: + irritable mood Thought Process: + concrete thought process Thought Content: reality based without delusions Suicidal Thoughts: denies suicidal thoughts Homicidal Thoughts: denies homicidal thoughts Hallucinations: no auditory hallucinations and no visual hallucinations Cognition: recent memory grossly intact, remote memory grossly intact, attention grossly intact and language grossly intact Estimated Intelligence: consistent with education level Insight: + impaired insight Judgement: + limited judgement Vital Signs (Past 24 Hours) Last Vital Signs Temp 36.7 C 12/04/21 07:32 Pulse 73 12/04/21 07:32 Resp 18 12/04/21 07:32 BP 124/59 L 12/04/21 07:32 Pulse Ox 95 12/04/21 07:32 O2 Del Method 12/04/21 07:32 O2 Flow Rate 4 11/29/21 13:19 Results & Data ([facility]) Laboratory Results Laboratory Results - last 24 hr 12/03/21 12/04/21 12/04/21 Unknown 05:51 05:51 WBC 5.60 RBC 4.02 Hgb 12.6 Hct 36.0 MCV 89.6 MCH 31.3 MCHC 35.0 RDW Std Deviation 47.8 H RDW Coeff of Geo 14.7 H Plt Count 172 MPV 11.7 Sodium 136 Potassium 3.8 D Chloride 105 Carbon Dioxide 25 Anion Gap 6 BUN 13 Creatinine 0.68 Est Cr Clr Drug Dosing 63.4 Est GFR ( Amer) 97.1 Est GFR (Non-Af Amer) 83.8 BUN/Creatinine Ratio 19.1 Glucose 105 H Calcium 9.4 POC Stool Occult Blood Cancelled Current Inpatient Medications Current Inpatient Medications: Current Inpatient Medications Acetaminophen (Acetaminophen 325 Mg Tab) 650 mg PO Q4H PRN PRN Reason: Pain or Fever Stop: 12/29/21 20:34 Al Hydrox/Mg Hydrox/Simethicone (Aluminum/Magnesium Susp 30 Ml Udc) 15 ml PO Q4H PRN PRN Reason: Dyspepsia Stop: 12/29/21 20:34 Azathioprine (Azathioprine 25 Mg Tab) 75 mg PO DAILY COUNT INCLUDES [facility] Stop: 12/30/21 08:59 Last Admin: 12/04/21 08:26 Dose: 75 mg Heparin Sodium (Porcine) (Heparin Sod 5,000 Unit/0.5 Ml Vial) 5,000 units SQ Q12 [facility] Stop: 12/29/21 20:59 Last Admin: 12/04/21 08:27 Dose: 5,000 units Hydralazine HCl (Hydralazine Hcl 20 Mg/Ml Vial) 5 mg IV Q6H PRN PRN Reason: Blood Pressure - High Stop: 12/29/21 20:34 Losartan Potassium (Losartan Potassium 25 Mg Tab) 25 mg PO DAILY COUNT INCLUDES [facility] Stop: 12/30/21 08:59 Last Admin: 12/04/21 08:26 Dose: 25 mg Magnesium Hydroxide (Magnesium Hydroxide Susp 30 Ml Udc) 30 ml PO Q12H PRN PRN Reason: Constipation Stop: 12/29/21 20:34 Last Admin: 12/03/21 05:22 Dose: 30 ml Modafinil (Modafinil 100 Mg Tab) 100 mg PO QAM COUNT INCLUDES THE [facility] Stop: 01/03/22 08:59 Last Admin: 12/04/21 08:32 Dose: 100 mg Ondansetron HCl (Ondansetron Inj 2 Mg/Ml 2 Ml Vial) 4 mg IV Q6H PRN PRN Reason: Nausea Stop: 12/29/21 20:34 Oxybutynin Chloride (Oxybutynin Chloride Xl 5 Mg Tabcr) 5 mg PO QAM COUNT INCLUDES [facility] Stop: 12/31/21 14:44 Last Admin: 12/04/21 08:26 Dose: 5 mg Tacrolimus (Pom - Tacrolimus 1 Mg Cap) 1 mg PO QAM COUNT INCLUDES THE [facility] Stop: 12/31/21 08:59 Last Admin: 12/04/21 08:27 Dose: 1 mg Tacrolimus (Pom - Tacrolimus 1 Mg Cap) 2 mg PO PM [facility] Stop: 12/30/21 00:14 Last Admin: 12/03/21 20:10 Dose: 2 mg Vitamin B Complex (Vitamin B Complex Tab) 1 tab PO DAILY [facility] Stop: 12/30/21 08:59 Last Admin: 12/04/21 08:26 Dose: 1 tab
[2021-12-05] MEDS: HEPARIN SOD 5,000 UNIT/0.5 ML VIAL SQ SCH ×2 (10:00→20:44)
[2021-12-05] MEDS ORDERED: MIRTAZAPINE TAB 15 MG TAB PO PRN (10:01)
--- NOTE | 2021-12-05 10:01 | Psychiatric Progress Note ---
Date of Service December 05, 2021 Impression / Recommendations Impression 76 yo woman with worsening depression in context of functional decline and ongoing worsening chronic medical conditions now with recent suicide attempt via superficial cutting and ongoing SI. Collateral from patient's daughter supports adjustment disorder with depressed mood with biggest contribution due to deconditioned state following COVID, UTI and C. diff. No longer with SI but remains depressed with poor motivation. Using modafinil to target this. Subacute rehab which offers supportive controlled setting felt to be the most appropriate treatment at this point once she is able to consistently show engagement. Acute risk is now low given denial of SI but still with depressed mood, ongoing PT/OT and medical workup to improve weakness felt to be most significant modifiable risk factor to address with goal of subacute rehab once medically stable. 12/05/21: Continues to deny SI and mood improving but still irritable and low energy. Adding prn mirtazapine to help with sleep/appetite if she decides she is interested in trying this. She consents to continuing with modafinil for short- term to help with energy/motivation/participation with PT. (1) Depression: (2) Mixed stress and urge urinary incontinence: Plan 12/05/21: -Continue modafinil -Mirtazapine 7.5mg qhs prn -Consider SSRI trial if mirtazapine ineffective or if causes excessive sedation 12/04/21: -Continue with modafinil 12/03/21: -Increase modafinil to 100mg qd if hospitalist feels safe/appropriate (defer given on telemetry) 12/02/21: -Consider discontinuing 1-on-1 and suicide precautions -Continue with modafinil 50mg qd -Psych liason working on getting collateral from daughter 12/01/21: -Initial focus on increasing energy and motivation, reviewed cardiac risks with hospitalist who feels she is stable for stimulant trial. Will start modafinil -Continue 1-on-1 with suicide precautions (can use plastic utensils to help with increasing po intake as she feels finger foods are not appetizing) -Psych liason to get collateral from her daughter -Encourage participation with PT/determination of ambulation status/any need for assistance devices and ongoing medical optimization of incontinence Risk Factors Assessment Do You Have Access To A Gun?: No Interval History Identifying Information 76 yo woman with history of depression and multiple chronic medical conditions including worsening incontinence, recent C. 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 Chief Complaint "I'm alright". Review of Systems Notes see subjective Subjective Subjective Patient was seen & assessed and interval progress reviewed. Still remaining in bed most of the day. States mood is "alright". Denies SI. Wants to sleep as her sleep was disrupted due to roommate requiring medical attention overnight. Appetite remains low due to taste changes but did eat her breakfast. Doesn't like that her mind feels "blank" which she describes as "usually I see pictures in my mind like puzzle pieces, now there is nothing". She thinks this might be due to modafinil but agrees to continue it for another day as we both agree it seems to have helped her mood a bit. Reviewed option for mirtazapine to help with sleep and appetite and mood, she wants to avoid excessive medications so will have available to use as prn if desired. Physical Exam Psychiatric Orientation: alert and oriented x 3 Apperance: appropriately dressed and appropriately groomed Eye Contact: good eye contact Motor Behavior: no abnormal motor movements Speech: normal rate/rhythm/volume of speech Affect: + constricted affect Mood: + irritable mood Thought Process: + concrete thought process Thought Content: reality based without delusions Suicidal Thoughts: denies suicidal thoughts Homicidal Thoughts: denies homicidal thoughts Hallucinations: no auditory hallucinations and no visual hallucinations Cognition: recent memory grossly intact, remote memory grossly intact, attention grossly intact and language grossly intact Estimated Intelligence: consistent with education level Insight: + impaired insight Judgement: + limited judgement Vital Signs (Past 24 Hours) Last Vital Signs Temp 36.7 C 12/05/21 07:36 Pulse 67 12/05/21 07:36 Resp 18 12/05/21 07:36 BP 144/71 H 12/05/21 07:36 Pulse Ox 97 12/05/21 07:36 O2 Del Method 12/05/21 07:36 O2 Flow Rate 4 11/29/21 13:19 Results & Data ([facility]) Current Inpatient Medications Current Inpatient Medications: Current Inpatient Medications Acetaminophen (Acetaminophen 325 Mg Tab) 650 mg PO Q4H PRN PRN Reason: Pain or Fever Stop: 12/29/21 20:34 Al Hydrox/Mg Hydrox/Simethicone (Aluminum/Magnesium Susp 30 Ml Udc) 15 ml PO Q4H PRN PRN Reason: Dyspepsia Stop: 12/29/21 20:34 Azathioprine (Azathioprine 25 Mg Tab) 75 mg PO DAILY [facility] Stop: 12/30/21 08:59 Last Admin: 12/04/21 08:26 Dose: 75 mg Heparin Sodium (Porcine) (Heparin Sod 5,000 Unit/0.5 Ml Vial) 5,000 units SQ Q12 [facility] Stop: 12/29/21 20:59 Last Admin: 12/04/21 20:48 Dose: 5,000 units Hydralazine HCl (Hydralazine Hcl 20 Mg/Ml Vial) 5 mg IV Q6H PRN PRN Reason: Blood Pressure - High Stop: 12/29/21 20:34 Losartan Potassium (Losartan Potassium 25 Mg Tab) 25 mg PO DAILY [facility] Stop: 12/30/21 08:59 Last Admin: 12/04/21 08:26 Dose: 25 mg Magnesium Hydroxide (Magnesium Hydroxide Susp 30 Ml Udc) 30 ml PO Q12H PRN PRN Reason: Constipation Stop: 12/29/21 20:34 Last Admin: 12/03/21 05:22 Dose: 30 ml Modafinil (Modafinil 100 Mg Tab) 100 mg PO QAM [facility] Stop: 01/03/22 08:59 Last Admin: 12/04/21 08:32 Dose: 100 mg Ondansetron HCl (Ondansetron Inj 2 Mg/Ml 2 Ml Vial) 4 mg IV Q6H PRN PRN Reason: Nausea Stop: 12/29/21 20:34 Oxybutynin Chloride (Oxybutynin Chloride Xl 5 Mg Tabcr) 5 mg PO QAM [facility] Stop: 12/31/21 14:44 Last Admin: 12/04/21 08:26 Dose: 5 mg Tacrolimus (Pom - Tacrolimus 1 Mg Cap) 1 mg PO QAM [facility] Stop: 12/31/21 08:59 Last Admin: 12/04/21 08:27 Dose: 1 mg Tacrolimus (Pom - Tacrolimus 1 Mg Cap) 2 mg PO PM [facility] Stop: 12/30/21 00:14 Last Admin: 12/04/21 20:48 Dose: 2 mg Vitamin B Complex (Vitamin B Complex Tab) 1 tab PO DAILY [facility] Stop: 12/30/21 08:59 Last Admin: 12/04/21 08:26 Dose: 1 tab
[2021-12-05] MEDS: OXYBUTYNIN CHLORIDE XL 5 MG TABCR PO SCH (10:02)
[2021-12-05] MEDS: LOSARTAN POTASSIUM 25 MG TAB PO SCH (10:02)
[2021-12-05] MEDS: azaTHIOprine 25 MG TAB PO SCH (10:02)
[2021-12-05] MEDS: VITAMIN B COMPLEX TAB PO SCH (10:03)
[2021-12-05] MEDS: TACROLIMUS 1 MG PO SCH ×2 (10:03→20:42)
[2021-12-05] MEDS: modafiniL 100 MG TAB PO SCH (10:07)
--- NOTE | 2021-12-05 13:47 | Hospitalist Progress Note ---
Date of Service December 05, 2021 Assessment & Plan (1) Weakness: Plan: Had COVID 11/06/2021, symptoms worsened 11/13 and was treated at [facility]. During that hospitalization rehab was recommended however did not qualify due to lack of participation in hospital rehab. On Friday cut bilateral wrists with superficial lacerations with kitchen knife, no emergent intervention needed. - Stool studies negative on 12/03. UA/UCx ordered - Grew Proteus vulgaris. - PT and OT while admitted. -> Anticipate discharge to rehab as patient has been reported to have hoarding behaviors and reports of patient being unable to manage ADLs independently. Placement will likely be very challenging as patient has psychiatric needs as well as medical needs. Discussed with Case Management today. No success yet today. (2) Depression: Plan: Patient previously was on antidepressants but these were stopped several years ago. Depression somewhat illness-related, with Hx transplant of pancreas and kidney with multiple health complaints since that time. Recently patient is very depressed and slit her wrists bilaterally with superficial lacerations from a kitchen knife this week on Friday or Friday. - Psychiatry consult requested and appreciate recommendations: modafinil increased to 100 mg on 12/03. (3) Mixed stress and urge urinary incontinence: Plan: UA and UCx ordered on admission. UA was dirty; urine cx grew Proteus vulgaris. - Trialing oxybutynin 5mg daily for mixed incontinence. - Feel ambivalent about it, but will treat the urine cx. I am not convinced she is having a UTI given no dysuria, pelvic pain, fever, or leukocytosis, but given her immunocompromised state, will treat with Cipro x 3 days. (4) Rectal urgency: Plan: No localized lower limb motor weakness to suggest cauda equina syndrome. - Stool studies ordered - negative on 12/03 (5) History of Clostridium difficile colitis: Plan: Patient does have history of C. difficile, however with no BM since admission. No indication for oral antibiotics at this time. - Monitor (6) Suicidal ideation: Plan: See above (7) Hoarding behavior: Plan: See above (8) S/P kidney transplant: Plan: Baseline Cr ~0.5 - 0.8. Presently at baseline. - Continue Prograf as directed; home medication. - Continue Imuran. 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 (10) Hypertension: Plan: BP is 145/60 today. - Continue losartan 25mg daily (11) Esophageal reflux disease: Plan: Patient is not on any PPI or H2 nazario. Follow symptomatically. (12) DVT prophylaxis: Plan: Heparin 5000 units subcutaneously every 12 hours. Plan Code Status: FULL Dispo: transfer to [facility]/Surg Admission and Anticipated Discharge Date Admission Date: November 29, 2021 Subjective Improved spirits today. Seen sitting in bed and eating. Reported her food tasted "bitter." Otherwise, no complaints. Physical Exam Constitutional: WD/WN, vitals as above Eyes: EOM intact bilaterally; no conjunctival abnormality ENMT: external ear and nose normal, oropharynx normal Neck: trachea midline, no thyromegaly normal visual inspection Respiratory: normal respiratory effort, lungs clear to auscultation no respiratory distress Cardiovascular: RRR, no murmur, no edema Gastrointestinal (Abdomen): Inspection/Auscultation: abdomen normal to inspection; abdomen not distended Musculoskeletal: no cyanosis or clubbing, extremities motor strength 5/5 Skin: no rashes, warm and dry Neurologic: moves all extremities and awake Psychiatric: Orientation: alert, oriented to person and cooperative Results & Data Results & Data ([facility]) Vital Signs (Past 12 Hours) Vital Signs Temp Pulse Resp BP Pulse Ox Pulse Ox O2 Del Method 12/05/21 12:00 96 12/05/21 07:36 36.7 C 67 18 144/71 H 97 Room Air O2 Del Method 12/05/21 12:00 Room Air 12/05/21 07:36 PG Care Time/CCT Total # of Minutes Spent Total Time Spent with Patient: Total time spent is greater than 50% in coordination of care (as documented) at patient's floor/unit and/or counseling patient: Coding Level of Care Code 40575 Subseq Hosp Care Lvl 2 Diagnoses Weakness R53.1 Depression F32.A Mixed stress and urge urinary incontinence N39.46 Rectal urgency R15.2 History of Clostridium difficile colitis Z86.19 Suicidal ideation R45.851 Hoarding behavior F42.3 S/P kidney transplant Z94.0 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
[2021-12-05] MEDS: CIPROFLOXACIN 500 MG TAB PO SCH (20:42)
[2021-12-06 07:54] LABS: Hematocrit (blood only) 37.2 % (34.1-44.9); Hemoglobin 12.6 g/dl (12.0-16.0); Mean Corpuscular Hemoglobin 31.3 pg (25.0-34.0); Mean Corpuscular Hgb Conc 33.9 g/dL (32.0-36.0); Mean Corpuscular Volume 92.5 fL (80.0-100.0); Mean Platelet Volume 11.3 fL (9.4-12.3); Platelet Count 177 K/uL (130-400); RDW Coefficient of Variation 15.2 % (11.5-14.5); RDW Standard Deviation 51.6 fL (36.4-46.3); Red Blood Count 4.02 M/uL (3.93-5.22); White Blood Count 6.03 K/ul (4.8-10.8)
[2021-12-06 08:18] LABS: BUN Creatinine Ratio 17.9 (10-20); Calcium 9.4 mg/dl (8.5-10.1); Creatinine Clr Calc Pharmacy 52.4 ml/min; Est GFR (African American) 77.2 ml/min; Est GFR (Non-African American) 66.6 ml/min; Magnesium 1.7 mg/dl (1.7-2.4); Potassium 4.1 mmol/L (3.5-5.1)
[2021-12-06] MEDS: HEPARIN SOD 5,000 UNIT/0.5 ML VIAL SQ SCH ×2 (09:05→21:36)
[2021-12-06] MEDS: azaTHIOprine 25 MG TAB PO SCH (09:06)
[2021-12-06] MEDS: VITAMIN B COMPLEX TAB PO SCH (09:06)
[2021-12-06] MEDS: CIPROFLOXACIN 500 MG TAB PO SCH ×2 (09:06→21:36)
[2021-12-06] MEDS: TACROLIMUS 1 MG PO SCH ×2 (09:06→21:36)
[2021-12-06] MEDS: OXYBUTYNIN CHLORIDE XL 5 MG TABCR PO SCH (09:06)
[2021-12-06] MEDS: LOSARTAN POTASSIUM 25 MG TAB PO SCH (09:06)
[2021-12-06] MEDS: modafiniL 100 MG TAB PO SCH (09:13)
--- NOTE | 2021-12-06 12:30 | Psychiatric Progress Note ---
Date of Service December 06, 2021 Impression / Recommendations Impression 76 yo woman with worsening depression in context of functional decline and ongoing worsening chronic medical conditions now with recent suicide attempt via superficial cutting and ongoing SI. Collateral from patient's daughter supports adjustment disorder with depressed mood with biggest contribution due to deconditioned state following COVID, UTI and C. diff. No longer with SI but remains depressed with poor motivation. Using modafinil to target this. Subacute rehab which offers supportive controlled setting felt to be the most appropriate treatment at this point once she is able to consistently show engagement. Acute risk is now low given denial of SI but still with depressed mood, ongoing PT/OT and medical workup to improve weakness felt to be most significant modifiable risk factor to address with goal of subacute rehab once medically stable. 12/06/21: Continues to deny SI and mood improving especially in the afternoons. May have experienced some urinary retention 2/2 mirtazapine so will discontinue this and add melatonin for sleep. Consider SSRI if she becomes agreeable to this. Tolerating modafinil better, continue for short-term during inpatient hospitalization to help with PT participation/energy/motivation. (1) Depression: (2) Mixed stress and urge urinary incontinence: Plan 12/06/21: -Continue modafinil while inpatient, discontinue on discharge to subacute rehab/placement given improvement in participation/motivation -Stop mirtazapine -Melatonin 3mg qhs prn -Consider SSRI trial if she becomes agreeable to this-would try sertraline starting with 25mg qd and could increase to 50mg qd after 2 weeks if well tolerated. 12/05/21: -Continue modafinil -Mirtazapine 7.5mg qhs prn -Consider SSRI trial if mirtazapine ineffective or if causes excessive sedation 12/04/21: -Continue with modafinil 12/03/21: -Increase modafinil to 100mg qd if hospitalist feels safe/appropriate (defer given on telemetry) 12/02/21: -Consider discontinuing 1-on-1 and suicide precautions -Continue with modafinil 50mg qd -Psych liason working on getting collateral from daughter 12/01/21: -Initial focus on increasing energy and motivation, reviewed cardiac risks with hospitalist who feels she is stable for stimulant trial. Will start modafinil -Continue 1-on-1 with suicide precautions (can use plastic utensils to help with increasing po intake as she feels finger foods are not appetizing) -Psych liason to get collateral from her daughter -Encourage participation with PT/determination of ambulation status/any need for assistance devices and ongoing medical optimization of incontinence Risk Factors Assessment Do You Have Access To A Gun?: No Interval History Identifying Information 76 yo woman with history of depression and multiple chronic medical conditions including worsening incontinence, recent C. 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 Chief Complaint "I woke up feeling like someone was grabbing my vagina and I can't pee". Review of Systems Notes better sleep, observed eating a full lunch Subjective Subjective Patient was seen & assessed and interval progress reviewed. Spoke with RN last evening who noted later in the day yesterday Tunde had bright affect, was laughing and talking with RN. She took mirtazapine last night for sleep and slept well but this morning now feels "dry" and can't pee and has pain in her pelvic area. Reviewed that sometimes mirtazapine can cause mild urinary retention so she would like to stop this and try melatonin instead. She denies SI. States her mood is bad due to health issues stating "once one thing gets better two other things get worse". Doesn't want to try any other psychiatric medications. Denies side effects to modafinil. States she participated with PT yesterday and that her strength is getting better. Physical Exam Psychiatric Orientation: alert, oriented x 3, oriented to person and cooperative Apperance: appropriately dressed and appropriately groomed Eye Contact: good eye contact and + poor eye contact Motor Behavior: no abnormal motor movements Speech: normal rate/rhythm/volume of speech Affect: + constricted affect Mood: + depressed mood and + irritable mood Thought Process: + concrete thought process Thought Content: reality based without delusions Suicidal Thoughts: denies suicidal thoughts, denies suicidal plan and denies suicidal intent Homicidal Thoughts: denies homicidal thoughts Hallucinations: no auditory hallucinations and no visual hallucinations Cognition: recent memory grossly intact, remote memory grossly intact, attention grossly intact and language grossly intact Estimated Intelligence: consistent with education level Insight: + impaired insight Judgement: + limited judgement Vital Signs (Past 24 Hours) Last Vital Signs Temp 36.7 C 12/06/21 07:44 Pulse 72 12/06/21 07:44 Resp 18 12/06/21 07:44 BP 110/66 12/06/21 07:44 Pulse Ox 99 12/06/21 07:44 O2 Del Method 12/06/21 07:44 O2 Flow Rate 4 11/29/21 13:19 Results & Data ([facility]) Laboratory Results Laboratory Results - last 24 hr 12/06/21 12/06/21 07:35 07:35 WBC 6.03 RBC 4.02 Hgb 12.6 Hct 37.2 MCV 92.5 MCH 31.3 MCHC 33.9 RDW Std Deviation 51.6 H RDW Coeff of Geo 15.2 H Plt Count 177 MPV 11.3 Sodium 137 Potassium 4.1 Chloride 107 Carbon Dioxide 26 Anion Gap 4 BUN 15 Creatinine 0.84 Est Cr Clr Drug Dosing 52.4 Est GFR ( Amer) 77.2 Est GFR (Non-Af Amer) 66.6 BUN/Creatinine Ratio 17.9 Glucose 98 Calcium 9.4 Magnesium 1.7 Current Inpatient Medications Current Inpatient Medications: Current Inpatient Medications Acetaminophen (Acetaminophen 325 Mg Tab) 650 mg PO Q4H PRN PRN Reason: Pain or Fever Stop: 12/29/21 20:34 Al Hydrox/Mg Hydrox/Simethicone (Aluminum/Magnesium Susp 30 Ml Udc) 15 ml PO Q4H PRN PRN Reason: Dyspepsia Stop: 12/29/21 20:34 Azathioprine (Azathioprine 25 Mg Tab) 75 mg PO DAILY [facility] Stop: 12/30/21 08:59 Last Admin: 12/06/21 09:06 Dose: 75 mg Ciprofloxacin (Ciprofloxacin 500 Mg Tab) 500 mg PO BID [facility] Stop: 12/08/21 20:59 Last Admin: 12/06/21 09:06 Dose: 500 mg Heparin Sodium (Porcine) (Heparin Sod 5,000 Unit/0.5 Ml Vial) 5,000 units SQ Q12 [facility] Stop: 12/29/21 20:59 Last Admin: 12/06/21 09:05 Dose: Not Given Hydralazine HCl (Hydralazine Hcl 20 Mg/Ml Vial) 5 mg IV Q6H PRN PRN Reason: Blood Pressure - High Stop: 12/29/21 20:34 Losartan Potassium (Losartan Potassium 25 Mg Tab) 25 mg PO DAILY [facility] Stop: 12/30/21 08:59 Last Admin: 12/06/21 09:06 Dose: 25 mg Magnesium Hydroxide (Magnesium Hydroxide Susp 30 Ml Udc) 30 ml PO Q12H PRN PRN Reason: Constipation Stop: 12/29/21 20:34 Last Admin: 12/03/21 05:22 Dose: 30 ml Mirtazapine (Mirtazapine Tab 15 Mg Tab) 7.5 mg PO HS PRN PRN Reason: Insomnia Stop: 01/04/22 20:59 Last Admin: 12/05/21 21:39 Dose: 7.5 mg Modafinil (Modafinil 100 Mg Tab) 100 mg PO QAM ELROY Stop: 01/03/22 08:59 Last Admin: 12/06/21 09:13 Dose: 100 mg Ondansetron HCl (Ondansetron Inj 2 Mg/Ml 2 Ml Vial) 4 mg IV Q6H PRN PRN Reason: Nausea Stop: 12/29/21 20:34 Oxybutynin Chloride (Oxybutynin Chloride Xl 5 Mg Tabcr) 5 mg PO QAM LEROY Stop: 12/31/21 14:44 Last Admin: 12/06/21 09:06 Dose: 5 mg Tacrolimus (Pom - Tacrolimus 1 Mg Cap) 1 mg PO QAM LEROY Stop: 12/31/21 08:59 Last Admin: 12/06/21 09:06 Dose: 1 mg Tacrolimus (Pom - Tacrolimus 1 Mg Cap) 2 mg PO PM [facility]EROY Stop: 12/30/21 00:14 Last Admin: 12/05/21 20:42 Dose: 2 mg Vitamin B Complex (Vitamin B Complex Tab) 1 tab PO DAILY [facility] Stop: 12/30/21 08:59 Last Admin: 12/06/21 09:06 Dose: 1 tab
--- NOTE | 2021-12-06 15:59 | Hospitalist Progress Note ---
Date of Service December 06, 2021 Assessment & Plan (1) Weakness: Plan: Had COVID 11/06/2021, symptoms worsened 11/13 and was treated at [facility]. During that hospitalization rehab was recommended however did not qualify due to lack of participation in hospital rehab. On Friday cut bilateral wrists with superficial lacerations with kitchen knife, no emergent intervention needed. - Stool studies negative on 12/03. UA/UCx ordered - Grew Proteus vulgaris. - PT and OT while admitted. -> Anticipate discharge to rehab as patient has been reported to have hoarding behaviors and reports of patient being unable to manage ADLs independently. Placement will likely be very challenging as patient has psychiatric needs as well as medical needs. Discussed with Case Management today. No success yet today. (2) Depression: Plan: Patient previously was on antidepressants but these were stopped several years ago. Depression somewhat illness-related, with Hx transplant of pancreas and kidney with multiple health complaints since that time. Recently patient is very depressed and slit her wrists bilaterally with superficial lacerations from a kitchen knife this week on Friday or Friday. - Psychiatry consult requested and appreciate recommendations: modafinil increased to 100 mg on 12/03. -Per Psych, Modafinil is to help her energy, to participate in PT -Discontinue upon discharge -May consider Sertraline 25mg daily -Discontinue Mirtazapine on account of urinary retention (3) Mixed stress and urge urinary incontinence: Plan: UA and UCx ordered on admission. UA was dirty; urine cx grew Proteus vulgaris. - Trialing oxybutynin 5mg daily for mixed incontinence. - treat with Cipro x 3 days. (4) Rectal urgency: Plan: No localized lower limb motor weakness to suggest cauda equina syndrome. - Stool studies ordered - negative on 12/03 (5) History of Clostridium difficile colitis: Plan: - Monitor (6) Suicidal ideation: Plan: See above (7) Hoarding behavior: Plan: See above (8) S/P kidney transplant: Plan: Baseline Cr ~0.5 - 0.8. Presently at baseline. - Continue Prograf as directed; home medication. - Continue Imuran. 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 (10) Hypertension: Plan: BP is 126/68 today. - Continue losartan 25mg daily (11) Esophageal reflux disease: Plan: Patient is not on any PPI or H2 nazario. Follow symptomatically. (12) DVT prophylaxis: Plan: Heparin 5000 units subcutaneously every 12 hours. Plan Code Status: FULL Awaiting placement Admission and Anticipated Discharge Date Admission Date: November 29, 2021 Subjective patient seen and examined, no new complaints Review of Systems Review of Systems: All systems reviewed are negative, apart from the ones contained in the history. Physical Exam Physical Exam: The patient is awake, alert and oriented 3, well developed and well nourished, normocephalic and atraumatic, lying in bed and in no acute distress. HEENT--PERRL, EOMI, mucous membranes and oropharynx mildly dry Neck--supple. No JVD. No bruits. Thyroid normal, trachea midline, no adenopathy. Heart--normal S1 and S2. No murmurs, rubs or gallops. Lungs--clear bilaterally, no respiratory distress, no accessory muscle use. Abdomen--normal bowel sounds and soft. Mild epigastric and left sided abdominal pain Extremities--no cyanosis or clubbing. No edema. Dermatologic--normal skin turgor, normal color, no abnormal lymph nodes, no rash. Neurologic--cranial nerves II through XII grossly intact. Rheumatologic--normal range of motion. Psychiatric--normal affect. Results & Data Results & Data ([facility]) Vital Signs (Past 12 Hours) Vital Signs Temp Pulse Resp BP Pulse Ox Pulse Ox O2 Del Method 12/06/21 15:21 98.6 F 72 18 126/68 95 Room Air 12/06/21 12:00 97 12/06/21 07:44 98.1 F 72 18 110/66 99 Room Air O2 Del Method 12/06/21 15:21 12/06/21 12:00 Room Air 12/06/21 07:44 PG Care Time/CCT Total # of Minutes Spent Total Time Spent with Patient: Total time spent is greater than 50% in coordination of care (as documented) at patient's floor/unit and/or counseling patient: Coding Level of Care Code 98765 Subseq Hosp Care Lvl 2 Diagnoses Weakness R53.1 Depression F32.A Mixed stress and urge urinary incontinence N39.46 Rectal urgency R15.2 History of Clostridium difficile colitis Z86.19 Suicidal ideation R45.851 Hoarding behavior F42.3 S/P kidney transplant Z94.0 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 Time Spent (min) 35
[2021-12-06] MEDS: MELATONIN 3 MG TAB PO PRN (21:36)
[2021-12-07] MEDS ORDERED: MELATONIN 3 MG TAB PO STA (03:09)
[2021-12-07] MEDS: VITAMIN B COMPLEX TAB PO SCH (08:17)
[2021-12-07] MEDS: CIPROFLOXACIN 500 MG TAB PO SCH ×2 (08:17→21:56)
[2021-12-07] MEDS: HEPARIN SOD 5,000 UNIT/0.5 ML VIAL SQ SCH ×2 (08:17→21:56)
[2021-12-07] MEDS: OXYBUTYNIN CHLORIDE XL 5 MG TABCR PO SCH (08:17)
[2021-12-07] MEDS: LOSARTAN POTASSIUM 25 MG TAB PO SCH (08:17)
[2021-12-07] MEDS: azaTHIOprine 25 MG TAB PO SCH (08:17)
[2021-12-07] MEDS: TACROLIMUS 1 MG PO SCH ×2 (08:18→21:57)
[2021-12-07] MEDS: modafiniL 100 MG TAB PO SCH (08:23)
--- NOTE | 2021-12-07 13:54 | Hospitalist Progress Note ---
Date of Service December 07, 2021 Assessment & Plan (1) Weakness: Plan: Had COVID 11/06/2021, symptoms worsened 11/13 and was treated at [facility]. During that hospitalization rehab was recommended however did not qualify due to lack of participation in hospital rehab. On Friday cut bilateral wrists with superficial lacerations with kitchen knife, no emergent intervention needed. - Stool studies negative on 12/03. UA/UCx ordered - Grew Proteus vulgaris, c ompleted a course of antibiotics - PT and OT while admitted. - Anticipate discharge to rehab as patient has been reported to have hoarding behaviors and reports of patient being unable to manage ADLs independently. -Placement will likely be very challenging as patient has psychiatric needs as well as medical needs. (2) Depression: Plan: Patient previously was on antidepressants but these were stopped several years ago. Depression somewhat illness-related, with Hx transplant of pancreas and kidney with multiple health complaints since that time. Recently patient is very depressed and slit her wrists bilaterally with superficial lacerations from a kitchen knife this week on Friday or Friday. - Psychiatry consult requested and appreciate recommendations: modafinil increased to 100 mg on 12/03. -Per Psych, Modafinil is to help her energy, to participate in PT -Discontinue upon discharge -May consider Sertraline 25mg daily -Discontinue Mirtazapine on account of urinary retention (3) Mixed stress and urge urinary incontinence: Plan: UA and UCx ordered on admission. UA was dirty; urine cx grew Proteus vulgaris. - Trialing oxybutynin 5mg daily for mixed incontinence. - treat with Cipro x 3 days. (4) Rectal urgency: Plan: No localized lower limb motor weakness to suggest cauda equina syndrome. - Stool studies ordered - negative on 12/03 (5) History of Clostridium difficile colitis: Plan: - Monitor (6) Suicidal ideation: Plan: See above (7) Hoarding behavior: Plan: See above (8) S/P kidney transplant: Plan: Baseline Cr ~0.5 - 0.8. Presently at baseline. - Continue Prograf as directed; home medication. - Continue Imuran. 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 (10) Hypertension: Plan: BP is 131/76 today. - Continue losartan 25mg daily (11) Esophageal reflux disease: Plan: Patient is not on any PPI or H2 nazario. Follow symptomatically. (12) DVT prophylaxis: Plan: Heparin 5000 units subcutaneously every 12 hours. Plan Code Status: FULL Awaiting placement Admission and Anticipated Discharge Date Admission Date: November 29, 2021 Subjective patient seen and examined, no new complaints Review of Systems Review of Systems: All systems reviewed are negative, apart from the ones contained in the history. Physical Exam Physical Exam: The patient is awake, alert and oriented 3, well developed and well nourished, normocephalic and atraumatic, lying in bed and in no acute distress. HEENT--PERRL, EOMI, mucous membranes and oropharynx mildly dry Neck--supple. No JVD. No bruits. Thyroid normal, trachea midline, no adenopathy. Heart--normal S1 and S2. No murmurs, rubs or gallops. Lungs--clear bilaterally, no respiratory distress, no accessory muscle use. Abdomen--normal bowel sounds and soft. Mild epigastric and left sided abdominal pain Extremities--no cyanosis or clubbing. No edema. Dermatologic--normal skin turgor, normal color, no abnormal lymph nodes, no rash. Neurologic--cranial nerves II through XII grossly intact. Rheumatologic--normal range of motion. Psychiatric--normal affect. Results & Data Results & Data ([facility]) Vital Signs (Past 12 Hours) Vital Signs Temp Pulse Resp BP Pulse Ox Pulse Ox O2 Del Method 12/07/21 12:00 96 12/07/21 08:33 97.3 F L 64 18 131/76 96 Room Air O2 Del Method 12/07/21 12:00 Room Air 12/07/21 08:33 PG Care Time/CCT Total # of Minutes Spent Total Time Spent with Patient: Total time spent is greater than 50% in coordination of care (as documented) at patient's floor/unit and/or counseling patient: Coding Level of Care Code 83024 Subseq Hosp Care Lvl 2 Diagnoses Weakness R53.1 Depression F32.A Mixed stress and urge urinary incontinence N39.46 Rectal urgency R15.2 History of Clostridium difficile colitis Z86.19 Suicidal ideation R45.851 Hoarding behavior F42.3 S/P kidney transplant Z94.0 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 Time Spent (min) 35
[2021-12-07] MEDS: ACETAMINOPHEN 325 MG TAB PO PRN (21:56)
[2021-12-07] MEDS: MELATONIN 3 MG TAB PO PRN (21:56)
--- NOTE | 2021-12-08 01:27 | Communication Note ---
Date of Service: December 08, 2021 Messaged that patient was requesting that her oxybutynin 5 mg (at night time instead of in the morning because she is frustrated by having to wake up m ultiple times during the night to urinate. Per nursing, she is ambulating to bathroom, which she prefers and is not using a pure wick or commode. Patient has had chronic retention and frequency issues since her pancreas and kidney transplants. Per review of psychiatry note from December 07, the listed complaint "can't pee" implied urinary retention complaint. Per nursing, patient has been able to void and retention issues are at baseline. Patient is asleep, but if wakes up, will change give dose of oxybutynin. Changing schedule from qam to qhs. Recommend further clarification of diagnosis of mixed incontinence.
[2021-12-08] MEDS: CIPROFLOXACIN 500 MG TAB PO SCH (08:04)
[2021-12-08] MEDS: LOSARTAN POTASSIUM 25 MG TAB PO SCH (08:04)
[2021-12-08] MEDS: VITAMIN B COMPLEX TAB PO SCH (08:04)
[2021-12-08] MEDS: azaTHIOprine 25 MG TAB PO SCH (08:05)
[2021-12-08] MEDS: TACROLIMUS 1 MG PO SCH ×2 (08:06→20:18)
[2021-12-08] MEDS: HEPARIN SOD 5,000 UNIT/0.5 ML VIAL SQ SCH ×2 (08:06→20:17)
[2021-12-08] MEDS: modafiniL 100 MG TAB PO SCH (08:08)
--- NOTE | 2021-12-08 14:14 | Hospitalist Progress Note ---
Date of Service December 08, 2021 Assessment & Plan (1) Weakness: Plan: Had COVID 11/06/2021, symptoms worsened 11/13 and was treated at [facility]. During that hospitalization rehab was recommended however did not qualify due to lack of participation in hospital rehab. On Friday cut bilateral wrists with superficial lacerations with kitchen knife, no emergent intervention needed. - Stool studies negative on 12/03. UA/UCx ordered - Grew Proteus vulgaris, c ompleted a course of antibiotics - PT and OT while admitted. - Anticipate discharge to rehab as patient has been reported to have hoarding behaviors and reports of patient being unable to manage ADLs independently. -Placement will likely be very challenging as patient has psychiatric needs as well as medical needs. (2) Depression: Plan: Patient previously was on antidepressants but these were stopped several years ago. Depression somewhat illness-related, with Hx transplant of pancreas and kidney with multiple health complaints since that time. Recently patient is very depressed and slit her wrists bilaterally with superficial lacerations from a kitchen knife this week on Friday or Friday. - Psychiatry consult requested and appreciate recommendations: modafinil increased to 100 mg on 12/03. -Per Psych, Modafinil is to help her energy, to participate in PT -Discontinue upon discharge -May consider Sertraline 25mg daily -Discontinue Mirtazapine on account of urinary retention (3) Mixed stress and urge urinary incontinence: Plan: UA and UCx ordered on admission. UA was dirty; urine cx grew Proteus vulgaris. - Trialing oxybutynin 5mg daily for mixed incontinence. - Completed Cipro x 3 days. (4) Rectal urgency: Plan: No localized lower limb motor weakness to suggest cauda equina syndrome. - Stool studies ordered - negative on 12/03 (5) History of Clostridium difficile colitis: Plan: - Monitor (6) Suicidal ideation: Plan: See above (7) Hoarding behavior: Plan: See above (8) S/P kidney transplant: Plan: Baseline Cr ~0.5 - 0.8. Presently at baseline. - Continue Prograf as directed; home medication. - Continue Imuran. 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 (10) Hypertension: Plan: BP is 131/76 today. - Continue losartan 25mg daily (11) Esophageal reflux disease: Plan: Patient is not on any PPI or H2 nazario. Follow symptomatically. (12) DVT prophylaxis: Plan: Heparin 5000 units subcutaneously every 12 hours. Plan Code Status: FULL Awaiting placement Admission and Anticipated Discharge Date Admission Date: November 29, 2021 Subjective patient seen and examined, no new complaints Review of Systems Review of Systems: All systems reviewed are negative, apart from the ones contained in the history. Physical Exam Physical Exam: The patient is awake, alert and oriented 3, well developed and well nourished, normocephalic and atraumatic, lying in bed and in no acute distress. HEENT--PERRL, EOMI, mucous membranes and oropharynx mildly dry Neck--supple. No JVD. No bruits. Thyroid normal, trachea midline, no adenopathy. Heart--normal S1 and S2. No murmurs, rubs or gallops. Lungs--clear bilaterally, no respiratory distress, no accessory muscle use. Abdomen--normal bowel sounds and soft. Mild epigastric and left sided abdominal pain Extremities--no cyanosis or clubbing. No edema. Dermatologic--normal skin turgor, normal color, no abnormal lymph nodes, no rash. Neurologic--cranial nerves II through XII grossly intact. Rheumatologic--normal range of motion. Psychiatric--normal affect. Results & Data Results & Data ([facility]) Vital Signs (Past 12 Hours) Vital Signs Temp Pulse Resp BP Pulse Ox O2 Del Method 12/08/21 06:29 98.2 F 64 18 156/78 H 99 Room Air PG Care Time/CCT Total # of Minutes Spent Total Time Spent with Patient: Total time spent is greater than 50% in coordination of care (as documented) at patient's floor/unit and/or counseling patient: Coding Level of Care Code 37458 Subseq Hosp Care Lvl 2 Diagnoses Weakness R53.1 Depression F32.A Mixed stress and urge urinary incontinence N39.46 Rectal urgency R15.2 History of Clostridium difficile colitis Z86.19 Suicidal ideation R45.851 Hoarding behavior F42.3 S/P kidney transplant Z94.0 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 Time Spent (min) 35
[2021-12-08] MEDS: OXYBUTYNIN CHLORIDE XL 5 MG TABCR PO SCH (20:17)
[2021-12-09] MEDS: LOSARTAN POTASSIUM 25 MG TAB PO SCH (07:44)
[2021-12-09] MEDS: azaTHIOprine 25 MG TAB PO SCH (07:44)
[2021-12-09] MEDS: VITAMIN B COMPLEX TAB PO SCH (07:44)
[2021-12-09] MEDS: TACROLIMUS 1 MG PO SCH ×2 (07:45→20:21)
[2021-12-09] MEDS: HEPARIN SOD 5,000 UNIT/0.5 ML VIAL SQ SCH ×2 (07:45→20:20)
[2021-12-09] MEDS: modafiniL 100 MG TAB PO SCH (07:48)
--- NOTE | 2021-12-09 14:36 | Hospitalist Progress Note ---
Date of Service December 09, 2021 Assessment & Plan (1) Weakness: Plan: Had COVID 11/06/2021, symptoms worsened 11/13 and was treated at [facility]. During that hospitalization rehab was recommended however did not qualify due to lack of participation in hospital rehab. On Friday cut bilateral wrists with superficial lacerations with kitchen knife, no emergent intervention needed. - Stool studies negative on 12/03. UA/UCx ordered - Grew Proteus vulgaris, c ompleted a course of antibiotics - PT and OT while admitted. - Anticipate discharge to rehab as patient has been reported to have hoarding behaviors and reports of patient being unable to manage ADLs independently. -Placement will likely be very challenging as patient has psychiatric needs as well as medical needs. (2) Depression: Plan: Patient previously was on antidepressants but these were stopped several years ago. Depression somewhat illness-related, with Hx transplant of pancreas and kidney with multiple health complaints since that time. Recently patient is very depressed and slit her wrists bilaterally with superficial lacerations from a kitchen knife this week on Friday or Friday. - Psychiatry consult requested and appreciate recommendations: modafinil increased to 100 mg on 12/03. -Per Psych, Modafinil is to help her energy, to participate in PT -Discontinue upon discharge -May consider Sertraline 25mg daily -Discontinue Mirtazapine on account of urinary retention (3) Mixed stress and urge urinary incontinence: Plan: UA and UCx ordered on admission. UA was dirty; urine cx grew Proteus vulgaris. - Trialing oxybutynin 5mg daily for mixed incontinence. - Completed a course of antibiotics (4) Rectal urgency: Plan: No localized lower limb motor weakness to suggest cauda equina syndrome. - Stool studies ordered - negative on 12/03 (5) History of Clostridium difficile colitis: Plan: - Monitor (6) Suicidal ideation: Plan: See above (7) Hoarding behavior: Plan: See above (8) S/P kidney transplant: Plan: Baseline Cr ~0.5 - 0.8. Presently at baseline. - Continue Prograf as directed; home medication. - Continue Imuran. 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 (10) Hypertension: Plan: BP is 131/76 today. - Continue losartan 25mg daily (11) Esophageal reflux disease: Plan: Patient is not on any PPI or H2 nazario. Follow symptomatically. (12) DVT prophylaxis: Plan: Heparin 5000 units subcutaneously every 12 hours. Plan Code Status: FULL Awaiting placement Admission and Anticipated Discharge Date Admission Date: November 29, 2021 Subjective patient seen and examined, no new complaints, lying quietly in bed Review of Systems Review of Systems: All systems reviewed are negative, apart from the ones contained in the history. Physical Exam Physical Exam: The patient is awake, alert and oriented 3, well developed and well nourished, normocephalic and atraumatic, lying in bed and in no acute distress. HEENT--PERRL, EOMI, mucous membranes and oropharynx mildly dry Neck--supple. No JVD. No bruits. Thyroid normal, trachea midline, no adenopathy. Heart--normal S1 and S2. No murmurs, rubs or gallops. Lungs--clear bilaterally, no respiratory distress, no accessory muscle use. Abdomen--normal bowel sounds and soft. Mild epigastric and left sided abdominal pain Extremities--no cyanosis or clubbing. No edema. Dermatologic--normal skin turgor, normal color, no abnormal lymph nodes, no rash. Neurologic--cranial nerves II through XII grossly intact. Rheumatologic--normal range of motion. Psychiatric--normal affect. Results & Data Results & Data ([facility]) Vital Signs (Past 12 Hours) Vital Signs Temp Pulse Resp BP Pulse Ox O2 Del Method 12/09/21 08:00 Room Air 12/09/21 08:01 98.1 F 72 18 150/78 H 97 Room Air PG Care Time/CCT Total # of Minutes Spent Total Time Spent with Patient: Total time spent is greater than 50% in coordination of care (as documented) at patient's floor/unit and/or counseling patient: Coding Level of Care Code 13423 Subseq Hosp Care Lvl 2 Diagnoses Weakness R53.1 Depression F32.A Mixed stress and urge urinary incontinence N39.46 Rectal urgency R15.2 History of Clostridium difficile colitis Z86.19 Suicidal ideation R45.851 Hoarding behavior F42.3 S/P kidney transplant Z94.0 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 Time Spent (min) 35
[2021-12-09 15:12] LABS: Hemoglobin 12.8 g/dl (12.0-16.0); Mean Corpuscular Hemoglobin 31.4 pg (25.0-34.0); Mean Corpuscular Hgb Conc 32.8 g/dL (32.0-36.0); Mean Corpuscular Volume 95.8 fL (80.0-100.0); Mean Platelet Volume 10.7 fL (9.4-12.3); Platelet Count 166 K/uL (130-400); RDW Coefficient of Variation 14.9 % (11.5-14.5); Red Blood Count 4.07 M/uL (3.93-5.22); White Blood Count 5.75 K/ul (4.8-10.8)
[2021-12-09 15:30] LABS: BUN Creatinine Ratio 16.7 (10-20); Calcium 9.4 mg/dl (8.5-10.1); Creatinine Clr Calc Pharmacy 54.1 ml/min; Est GFR (African American) 84.4 ml/min; Est GFR (Non-African American) 72.8 ml/min; Potassium 4.2 mmol/L (3.5-5.1)
[2021-12-09] MEDS: OXYBUTYNIN CHLORIDE XL 5 MG TABCR PO SCH (20:20)
[2021-12-10] MEDS: MELATONIN 3 MG TAB PO PRN ×2 (00:59→20:28)
[2021-12-10] MEDS: azaTHIOprine 25 MG TAB PO SCH (08:29)
[2021-12-10] MEDS: HEPARIN SOD 5,000 UNIT/0.5 ML VIAL SQ SCH ×2 (08:30→20:28)
[2021-12-10] MEDS: LOSARTAN POTASSIUM 25 MG TAB PO SCH (08:34)
[2021-12-10] MEDS: VITAMIN B COMPLEX TAB PO SCH (08:36)
[2021-12-10] MEDS: TACROLIMUS 1 MG PO SCH ×2 (08:42→20:28)
[2021-12-10] MEDS: modafiniL 100 MG TAB PO SCH (08:57)
--- NOTE | 2021-12-10 16:50 | Hospitalist Progress Note ---
Date of Service December 10, 2021 Assessment & Plan (1) Weakness: Plan: Had COVID 11/06/2021, symptoms worsened 11/13 and was treated at [facility]. During that hospitalization rehab was recommended however did not qualify due to lack of participation in hospital rehab. On Friday cut bilateral wrists with superficial lacerations with kitchen knife, no emergent intervention needed. - Stool studies negative on 12/03. UA/UCx ordered - Grew Proteus vulgaris, c ompleted a course of antibiotics - PT and OT while admitted. - Anticipate discharge to rehab as patient has been reported to have hoarding behaviors and reports of patient being unable to manage ADLs independently. -Placement will likely be very challenging as patient has psychiatric needs as well as medical needs. -Vital signs and basic labs essentially wnl (2) Depression: Plan: Patient previously was on antidepressants but these were stopped several years ago. Depression somewhat illness-related, with Hx transplant of pancreas and kidney with multiple health complaints since that time. Recently patient is very depressed and slit her wrists bilaterally with superficial lacerations from a kitchen knife this week on Friday or Friday. - Psychiatry consult requested and appreciate recommendations: modafinil increased to 100 mg on 12/03. -Per Psych, Modafinil is to help her energy, to participate in PT -Discontinue upon discharge -May consider Sertraline 25mg daily -Discontinue Mirtazapine on account of urinary retention (3) Mixed stress and urge urinary incontinence: Plan: UA and UCx ordered on admission. UA was dirty; urine cx grew Proteus vulgaris. - Trialing oxybutynin 5mg daily for mixed incontinence. - Completed a course of antibiotics (4) Rectal urgency: Plan: No localized lower limb motor weakness to suggest cauda equina syndrome. - Stool studies ordered - negative on 12/03 (5) History of Clostridium difficile colitis: Plan: - Monitor (6) Suicidal ideation: Plan: See above (7) Hoarding behavior: Plan: See above (8) S/P kidney transplant: Plan: Baseline Cr ~0.5 - 0.8. Presently at baseline. - Continue Prograf as directed; home medication. - Continue Imuran. 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 (10) Hypertension: Plan: BP is 131/76 today. - Continue losartan 25mg daily (11) Esophageal reflux disease: Plan: Patient is not on any PPI or H2 nazario. Follow symptomatically. (12) DVT prophylaxis: Plan: Heparin 5000 units subcutaneously every 12 hours. Plan Code Status: FULL Awaiting placement Admission and Anticipated Discharge Date Admission Date: November 29, 2021 Subjective patient seen and examined, no new complaints, lying quietly in bed Review of Systems Review of Systems: All systems reviewed are negative, apart from the ones contained in the history. Physical Exam Physical Exam: The patient is awake, alert and oriented 3, well developed and well nourished, normocephalic and atraumatic, lying in bed and in no acute distress. HEENT--PERRL, EOMI, mucous membranes and oropharynx mildly dry Neck--supple. No JVD. No bruits. Thyroid normal, trachea midline, no adenopathy. Heart--normal S1 and S2. No murmurs, rubs or gallops. Lungs--clear bilaterally, no respiratory distress, no accessory muscle use. Abdomen--normal bowel sounds and soft. Mild epigastric and left sided abdominal pain Extremities--no cyanosis or clubbing. No edema. Dermatologic--normal skin turgor, normal color, no abnormal lymph nodes, no rash. Neurologic--cranial nerves II through XII grossly intact. Rheumatologic--normal range of motion. Psychiatric--normal affect. Results & Data Results & Data ([facility]) Vital Signs (Past 12 Hours) Vital Signs Temp Pulse Resp BP BP Pulse Ox O2 Del Method 12/10/21 14:54 98.2 F 71 16 135/67 97 Room Air 12/10/21 07:34 97.9 F 74 16 170/82 H 159/82 H 94 Room Air PG Care Time/CCT Total # of Minutes Spent Total Time Spent with Patient: Total time spent is greater than 50% in coordination of care (as documented) at patient's floor/unit and/or counseling patient: Coding Level of Care Code 44385 Subseq Hosp Care Lvl 2 Diagnoses Weakness R53.1 Depression F32.A Mixed stress and urge urinary incontinence N39.46 Rectal urgency R15.2 History of Clostridium difficile colitis Z86.19 Suicidal ideation R45.851 Hoarding behavior F42.3 S/P kidney transplant Z94.0 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 Time Spent (min) 35
[2021-12-10] MEDS: OXYBUTYNIN CHLORIDE XL 5 MG TABCR PO SCH (20:28)
[2021-12-11] MEDS: azaTHIOprine 25 MG TAB PO SCH (08:38)
[2021-12-11] MEDS: LOSARTAN POTASSIUM 25 MG TAB PO SCH (08:39)
[2021-12-11] MEDS: VITAMIN B COMPLEX TAB PO SCH (08:39)
[2021-12-11] MEDS: TACROLIMUS 1 MG PO SCH ×2 (08:40→21:49)
[2021-12-11] MEDS: modafiniL 100 MG TAB PO SCH (09:23)
--- NOTE | 2021-12-11 14:52 | Hospitalist Progress Note ---
Date of Service December 11, 2021 Assessment & Plan (1) Weakness: Plan: Had COVID 11/06/2021, symptoms worsened 11/13 and was treated at [facility]. During that hospitalization rehab was recommended however did not qualify due to lack of participation in hospital rehab. On Friday cut bilateral wrists with superficial lacerations with kitchen knife, no emergent intervention needed. - Stool studies negative on 12/03. UA/UCx ordered - Grew Proteus vulgaris, c ompleted a course of antibiotics - PT and OT while admitted. - Anticipate discharge to rehab as patient has been reported to have hoarding behaviors and reports of patient being unable to manage ADLs independently. -Placement will likely be very challenging as patient has psychiatric needs as well as medical needs. -Vital signs and basic labs essentially wnl (2) Depression: Plan: Patient previously was on antidepressants but these were stopped several years ago. Depression somewhat illness-related, with Hx transplant of pancreas and kidney with multiple health complaints since that time. Recently patient is very depressed and slit her wrists bilaterally with superficial lacerations from a kitchen knife this week on Friday or Friday. - Psychiatry consult requested and appreciate recommendations: modafinil increased to 100 mg on 12/03. -Per Psych, Modafinil is to help her energy, to participate in PT -Discontinue upon discharge -May consider Sertraline 25mg daily -Discontinue Mirtazapine on account of urinary retention (3) Mixed stress and urge urinary incontinence: Plan: UA and UCx ordered on admission. UA was dirty; urine cx grew Proteus vulgaris. - Trialing oxybutynin 5mg daily for mixed incontinence. - Completed a course of antibiotics (4) Epistaxis: Plan: unsure if its traumatic due to nose picking will hold heparin check CBC (5) Rectal urgency: Plan: No localized lower limb motor weakness to suggest cauda equina syndrome. - Stool studies ordered - negative on 12/03 (6) History of Clostridium difficile colitis: Plan: - Monitor (7) Suicidal ideation: Plan: See above (8) Hoarding behavior: Plan: See above (9) S/P kidney transplant: Plan: Baseline Cr ~0.5 - 0.8. Presently at baseline. - Continue Prograf as directed; home medication. - Continue Imuran. 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 (11) Hypertension: Plan: BP is 137/75 today. - Continue losartan 25mg daily (12) Esophageal reflux disease: Plan: Patient is not on any PPI or H2 nazario. Follow symptomatically. (13) DVT prophylaxis: Plan: Heparin 5000 units subcutaneously every 12 hours, hold on account of nose bleed Plan Code Status: FULL Awaiting placement Admission and Anticipated Discharge Date Admission Date: November 29, 2021 Subjective patient seen and examined, no new complaints, lying quietly in bed, complained of a brief nose bleed Review of Systems Review of Systems: All systems reviewed are negative, apart from the ones contained in the history. Physical Exam Physical Exam: The patient is awake, alert and oriented 3, well developed and well nourished, normocephalic and atraumatic, lying in bed and in no acute distress. HEENT--PERRL, EOMI, mucous membranes and oropharynx mildly dry Neck--supple. No JVD. No bruits. Thyroid normal, trachea midline, no adenopathy. Heart--normal S1 and S2. No murmurs, rubs or gallops. Lungs--clear bilaterally, no respiratory distress, no accessory muscle use. Abdomen--normal bowel sounds and soft. Mild epigastric and left sided abdominal pain Extremities--no cyanosis or clubbing. No edema. Dermatologic--normal skin turgor, normal color, no abnormal lymph nodes, no rash. Neurologic--cranial nerves II through XII grossly intact. Rheumatologic--normal range of motion. Psychiatric--normal affect. Results & Data Results & Data ([facility]) Vital Signs (Past 12 Hours) Vital Signs Temp Pulse Resp BP Pulse Ox O2 Del Method 12/11/21 08:36 97.5 F L 88 18 137/75 97 Nasal Cannula PG Care Time/CCT Total # of Minutes Spent Total Time Spent with Patient: Total time spent is greater than 50% in coordination of care (as documented) at patient's floor/unit and/or counseling patient: Coding Level of Care Code 05695 Subseq Hosp Care Lvl 2 Diagnoses Weakness R53.1 Depression F32.A Mixed stress and urge urinary incontinence N39.46 Epistaxis R04.0 Rectal urgency R15.2 History of Clostridium difficile colitis Z86.19 Suicidal ideation R45.851 Hoarding behavior F42.3 S/P kidney transplant Z94.0 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 Time Spent (min) 35
[2021-12-11] MEDS: HEPARIN SOD 5,000 UNIT/0.5 ML VIAL SQ SCH (15:00)
[2021-12-11 15:48] LABS: Hematocrit (blood only) 35.6 % (34.1-44.9); Hemoglobin 12.2 g/dl (12.0-16.0); Mean Corpuscular Hemoglobin 31.6 pg (25.0-34.0); Mean Corpuscular Hgb Conc 34.3 g/dL (32.0-36.0); Mean Corpuscular Volume 92.2 fL (80.0-100.0); Mean Platelet Volume 10.6 fL (9.4-12.3); Platelet Count 185 K/uL (130-400); RDW Coefficient of Variation 14.8 % (11.5-14.5); RDW Standard Deviation 50.1 fL (36.4-46.3); Red Blood Count 3.86 M/uL (3.93-5.22); White Blood Count 5.67 K/ul (4.8-10.8)
[2021-12-11] MEDS: MELATONIN 3 MG TAB PO PRN (21:49)
[2021-12-11] MEDS: OXYBUTYNIN CHLORIDE XL 5 MG TABCR PO SCH (21:50)
[2021-12-12] MEDS: azaTHIOprine 25 MG TAB PO SCH (09:05)
[2021-12-12] MEDS: LOSARTAN POTASSIUM 25 MG TAB PO SCH (09:05)
[2021-12-12] MEDS: TACROLIMUS 1 MG PO SCH ×2 (09:06→20:49)
[2021-12-12] MEDS: VITAMIN B COMPLEX TAB PO SCH (09:06)
[2021-12-12] MEDS: modafiniL 100 MG TAB PO SCH (09:09)
--- NOTE | 2021-12-12 13:20 | Hospitalist Progress Note ---
Date of Service December 12, 2021 Assessment & Plan (1) Weakness: Plan: Had COVID 11/06/2021, symptoms worsened 11/13 and was treated at [facility]. During that hospitalization rehab was recommended however did not qualify due to lack of participation in hospital rehab. On Friday cut bilateral wrists with superficial lacerations with kitchen knife, no emergent intervention needed. - Stool studies negative on 12/03. UA/UCx ordered - Grew Proteus vulgaris, c ompleted a course of antibiotics - PT and OT while admitted. - Anticipate discharge to rehab as patient has been reported to have hoarding behaviors and reports of patient being unable to manage ADLs independently. -Placement will likely be very challenging as patient has psychiatric needs as well as medical needs. -Vital signs and basic labs essentially wnl (2) Depression: Plan: Patient previously was on antidepressants but these were stopped several years ago. Depression somewhat illness-related, with Hx transplant of pancreas and kidney with multiple health complaints since that time. Recently patient is very depressed and slit her wrists bilaterally with superficial lacerations from a kitchen knife this week on Friday or Friday. - Psychiatry consult requested and appreciate recommendations: modafinil increased to 100 mg on 12/03. -Per Psych, Modafinil is to help her energy, to participate in PT -Discontinue upon discharge -May consider Sertraline 25mg daily -Discontinue Mirtazapine on account of urinary retention (3) Mixed stress and urge urinary incontinence: Plan: UA and UCx ordered on admission. UA was dirty; urine cx grew Proteus vulgaris. - Trialing oxybutynin 5mg daily for mixed incontinence. - Completed a course of antibiotics (4) Epistaxis: Plan: unsure if its traumatic due to nose picking will hold heparin Hb stable, 12 today Nose bleed has stopped (5) Rectal urgency: Plan: No localized lower limb motor weakness to suggest cauda equina syndrome. - Stool studies ordered - negative on 12/03 (6) History of Clostridium difficile colitis: Plan: - Monitor (7) Suicidal ideation: Plan: See above (8) Hoarding behavior: Plan: See above (9) S/P kidney transplant: Plan: Baseline Cr ~0.5 - 0.8. Presently at baseline. - Continue Prograf as directed; home medication. - Continue Imuran. 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 (11) Hypertension: Plan: BP is 137/75 today. - Continue losartan 25mg daily (12) Esophageal reflux disease: Plan: Patient is not on any PPI or H2 nazario. Follow symptomatically. (13) DVT prophylaxis: Plan: Heparin 5000 units subcutaneously every 12 hours, hold on account of nose bleed Plan Code Status: FULL Awaiting placement Admission and Anticipated Discharge Date Admission Date: November 29, 2021 Subjective patient seen and examined, no new complaints, lying quietly in bed, complained of a brief nose bleed, still coughin up blood clots Review of Systems Review of Systems: All systems reviewed are negative, apart from the ones contained in the history. Physical Exam Physical Exam: The patient is awake, alert and oriented 3, well developed and well nourished, normocephalic and atraumatic, lying in bed and in no acute distress. HEENT--PERRL, EOMI, mucous membranes and oropharynx mildly dry Neck--supple. No JVD. No bruits. Thyroid normal, trachea midline, no adenopathy. Heart--normal S1 and S2. No murmurs, rubs or gallops. Lungs--clear bilaterally, no respiratory distress, no accessory muscle use. Abdomen--normal bowel sounds and soft. Mild epigastric and left sided abdominal pain Extremities--no cyanosis or clubbing. No edema. Dermatologic--normal skin turgor, normal color, no abnormal lymph nodes, no rash. Neurologic--cranial nerves II through XII grossly intact. Rheumatologic--normal range of motion. Psychiatric--normal affect. Results & Data Results & Data ([facility]) Vital Signs (Past 12 Hours) Vital Signs Temp Pulse Resp BP Pulse Ox O2 Del Method 12/12/21 07:26 98.2 F 77 16 109/64 96 Room Air PG Care Time/CCT Total # of Minutes Spent Total Time Spent with Patient: Total time spent is greater than 50% in coordination of care (as documented) at patient's floor/unit and/or counseling patient: Coding Level of Care Code 14182 Subseq Hosp Care Lvl 2 Diagnoses Weakness R53.1 Depression F32.A Mixed stress and urge urinary incontinence N39.46 Epistaxis R04.0 Rectal urgency R15.2 History of Clostridium difficile colitis Z86.19 Suicidal ideation R45.851 Hoarding behavior F42.3 S/P kidney transplant Z94.0 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 Time Spent (min) 35
[2021-12-12] MEDS: OXYBUTYNIN CHLORIDE XL 5 MG TABCR PO SCH (20:49)
[2021-12-12] MEDS: MELATONIN 3 MG TAB PO PRN (20:52)
[2021-12-13] MEDS: VITAMIN B COMPLEX TAB PO SCH (08:53)
[2021-12-13] MEDS: LOSARTAN POTASSIUM 25 MG TAB PO SCH (08:53)
[2021-12-13] MEDS: modafiniL 100 MG TAB PO SCH (08:53)
[2021-12-13] MEDS: TACROLIMUS 1 MG PO SCH ×2 (08:54→20:45)
[2021-12-13] MEDS: azaTHIOprine 25 MG TAB PO SCH (08:54)
--- NOTE | 2021-12-13 12:11 | Hospitalist Progress Note ---
Date of Service December 13, 2021 Assessment & Plan (1) Weakness: Plan: Had COVID 11/06/2021, symptoms worsened 11/13 and was treated at [facility]. During that hospitalization rehab was recommended however did not qualify due to lack of participation in hospital rehab. On Friday cut bilateral wrists with superficial lacerations with kitchen knife, no emergent intervention needed. - Stool studies negative on 12/03. UA/UCx ordered - Grew Proteus vulgaris, c ompleted a course of antibiotics - PT and OT while admitted. - Anticipate discharge to rehab as patient has been reported to have hoarding behaviors and reports of patient being unable to manage ADLs independently. -Placement will likely be very challenging as patient has psychiatric needs as well as medical needs. -Vital signs and basic labs essentially wnl (2) Depression: Plan: Patient previously was on antidepressants but these were stopped several years ago. Depression somewhat illness-related, with Hx transplant of pancreas and kidney with multiple health complaints since that time. Recently patient is very depressed and slit her wrists bilaterally with superficial lacerations from a kitchen knife this week on Friday or Friday. - Psychiatry consult requested and appreciate recommendations: modafinil increased to 100 mg on 12/03. -Per Psych, Modafinil is to help her energy, to participate in PT -Discontinue upon discharge -May consider Sertraline 25mg daily -Discontinue Mirtazapine on account of urinary retention (3) Mixed stress and urge urinary incontinence: Plan: UA and UCx ordered on admission. UA was dirty; urine cx grew Proteus vulgaris. - Trialing oxybutynin 5mg daily for mixed incontinence. - Completed a course of antibiotics (4) Epistaxis: Plan: now resolved (5) Rectal urgency: Plan: No localized lower limb motor weakness to suggest cauda equina syndrome. - Stool studies ordered - negative on 12/03 (6) History of Clostridium difficile colitis: Plan: - Monitor (7) Suicidal ideation: Plan: See above (8) Hoarding behavior: Plan: See above (9) S/P kidney transplant: Plan: Baseline Cr ~0.5 - 0.8. Presently at baseline. - Continue Prograf as directed; home medication. - Continue Imuran. 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 (11) Hypertension: Plan: BP is 142/69 today. - Continue losartan 25mg daily (12) Esophageal reflux disease: Plan: Patient is not on any PPI or H2 nazario. Follow symptomatically. (13) DVT prophylaxis: Plan: Heparin 5000 units subcutaneously every 12 hours, hold on account of nose bleed Plan Code Status: FULL Awaiting placement Admission and Anticipated Discharge Date Admission Date: November 29, 2021 Subjective patient seen and examined, no new complaints, lying quietly in bed, said nose bleed has stopped Review of Systems Review of Systems: All systems reviewed are negative, apart from the ones contained in the history. Physical Exam Physical Exam: The patient is awake, alert and oriented 3, well developed and well nourished, normocephalic and atraumatic, lying in bed and in no acute distress. HEENT--PERRL, EOMI, mucous membranes and oropharynx mildly dry Neck--supple. No JVD. No bruits. Thyroid normal, trachea midline, no adenopathy. Heart--normal S1 and S2. No murmurs, rubs or gallops. Lungs--clear bilaterally, no respiratory distress, no accessory muscle use. Abdomen--normal bowel sounds and soft. Mild epigastric and left sided abdominal pain Extremities--no cyanosis or clubbing. No edema. Dermatologic--normal skin turgor, normal color, no abnormal lymph nodes, no rash. Neurologic--cranial nerves II through XII grossly intact. Rheumatologic--normal range of motion. Psychiatric--normal affect. Results & Data Results & Data ([facility]) Vital Signs (Past 12 Hours) Vital Signs Temp Pulse Resp BP Pulse Ox O2 Del Method 12/13/21 07:53 98.1 F 69 16 142/69 H 93 Room Air PG Care Time/CCT Total # of Minutes Spent Total Time Spent with Patient: Total time spent is greater than 50% in coordination of care (as documented) at patient's floor/unit and/or counseling patient: Coding Level of Care Code 24476 Subseq Hosp Care Lvl 2 Diagnoses Weakness R53.1 Depression F32.A Mixed stress and urge urinary incontinence N39.46 Epistaxis R04.0 Rectal urgency R15.2 History of Clostridium difficile colitis Z86.19 Suicidal ideation R45.851 Hoarding behavior F42.3 S/P kidney transplant Z94.0 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 Time Spent (min) 35
[2021-12-13] MEDS: OXYBUTYNIN CHLORIDE XL 5 MG TABCR PO SCH (20:45)
[2021-12-13] MEDS: MELATONIN 3 MG TAB PO PRN (20:48)
[2021-12-14] MEDS: VITAMIN B COMPLEX TAB PO SCH (09:01)
[2021-12-14] MEDS: azaTHIOprine 25 MG TAB PO SCH (09:01)
[2021-12-14] MEDS: TACROLIMUS 1 MG PO SCH ×2 (09:01→21:32)
[2021-12-14] MEDS: LOSARTAN POTASSIUM 25 MG TAB PO SCH (09:01)
[2021-12-14] MEDS: modafiniL 100 MG TAB PO SCH (09:02)
--- NOTE | 2021-12-14 16:55 | Hospitalist Progress Note ---
Date of Service December 14, 2021 Assessment & Plan (1) Weakness: Plan: Had COVID 11/06/2021, symptoms worsened 11/13 and was treated at [facility]. During that hospitalization rehab was recommended however did not qualify due to lack of participation in hospital rehab. On Friday cut bilateral wrists with superficial lacerations with kitchen knife, no emergent intervention needed. - Stool studies negative on 12/03. UA/UCx ordered - Grew Proteus vulgaris, c ompleted a course of antibiotics - PT and OT while admitted. - Anticipate discharge to rehab as patient has been reported to have hoarding behaviors and reports of patient being unable to manage ADLs independently. -Placement will likely be very challenging as patient has psychiatric needs as well as medical needs. -Vital signs and basic labs essentially wnl (2) Depression: Plan: Patient previously was on antidepressants but these were stopped several years ago. Depression somewhat illness-related, with Hx transplant of pancreas and kidney with multiple health complaints since that time. Recently patient is very depressed and slit her wrists bilaterally with superficial lacerations from a kitchen knife this week on Friday or Friday. - Psychiatry consult requested and appreciate recommendations: modafinil increased to 100 mg on 12/03. -Per Psych, Modafinil is to help her energy, to participate in PT -Discontinue upon discharge -May consider Sertraline 25mg daily -Discontinue Mirtazapine on account of urinary retention (3) Mixed stress and urge urinary incontinence: Plan: UA and UCx ordered on admission. UA was dirty; urine cx grew Proteus vulgaris. - Trialing oxybutynin 5mg daily for mixed incontinence. - Completed a course of antibiotics (4) Epistaxis: Plan: now resolved (5) Rectal urgency: Plan: No localized lower limb motor weakness to suggest cauda equina syndrome. - Stool studies ordered - negative on 12/03 (6) History of Clostridium difficile colitis: Plan: - Monitor (7) Suicidal ideation: Plan: See above (8) Hoarding behavior: Plan: See above (9) S/P kidney transplant: Plan: Baseline Cr ~0.5 - 0.8. Presently at baseline. - Continue Prograf as directed; home medication. - Continue Imuran. 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 (11) Hypertension: Plan: BP is 130/71 today. - Continue losartan 25mg daily (12) Esophageal reflux disease: Plan: Patient is not on any PPI or H2 nazario. Follow symptomatically. (13) DVT prophylaxis: Plan: Heparin 5000 units subcutaneously every 12 hours, hold on account of nose bleed Plan Code Status: FULL Awaiting placement Admission and Anticipated Discharge Date Admission Date: November 29, 2021 Subjective patient seen and examined, no new complaints, lying quietly in bed, said nose bleed has stopped Review of Systems Review of Systems: All systems reviewed are negative, apart from the ones contained in the history. Physical Exam Physical Exam: The patient is awake, alert and oriented 3, well developed and well nourished, normocephalic and atraumatic, lying in bed and in no acute distress. HEENT--PERRL, EOMI, mucous membranes and oropharynx mildly dry Neck--supple. No JVD. No bruits. Thyroid normal, trachea midline, no adenopathy. Heart--normal S1 and S2. No murmurs, rubs or gallops. Lungs--clear bilaterally, no respiratory distress, no accessory muscle use. Abdomen--normal bowel sounds and soft. Mild epigastric and left sided abdominal pain Extremities--no cyanosis or clubbing. No edema. Dermatologic--normal skin turgor, normal color, no abnormal lymph nodes, no rash. Neurologic--cranial nerves II through XII grossly intact. Rheumatologic--normal range of motion. Psychiatric--normal affect. Results & Data Results & Data ([facility]) Vital Signs (Past 12 Hours) Vital Signs Temp Pulse Resp BP BP Pulse Ox O2 Del Method 12/14/21 14:29 98.4 F 74 18 130/71 96 Room Air 12/14/21 07:34 98.1 F 63 16 126/69 95 Room Air PG Care Time/CCT Total # of Minutes Spent Total Time Spent with Patient: Total time spent is greater than 50% in coordination of care (as documented) at patient's floor/unit and/or counseling patient: Coding Level of Care Code 12029 Subseq Hosp Care Lvl 2 Diagnoses Weakness R53.1 Depression F32.A Mixed stress and urge urinary incontinence N39.46 Epistaxis R04.0 Rectal urgency R15.2 History of Clostridium difficile colitis Z86.19 Suicidal ideation R45.851 Hoarding behavior F42.3 S/P kidney transplant Z94.0 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 Time Spent (min) 35
[2021-12-14] MEDS: MELATONIN 3 MG TAB PO PRN (21:32)
[2021-12-14] MEDS: OXYBUTYNIN CHLORIDE XL 5 MG TABCR PO SCH (21:32)
[2021-12-15] MEDS: azaTHIOprine 25 MG TAB PO SCH (09:54)
[2021-12-15] MEDS: TACROLIMUS 1 MG PO SCH ×2 (09:54→20:45)
[2021-12-15] MEDS: VITAMIN B COMPLEX TAB PO SCH (09:54)
[2021-12-15] MEDS: LOSARTAN POTASSIUM 25 MG TAB PO SCH (09:54)
[2021-12-15] MEDS: modafiniL 100 MG TAB PO SCH (10:08)
--- NOTE | 2021-12-15 13:05 | Hospitalist Progress Note ---
Date of Service December 15, 2021 Assessment & Plan (1) Weakness: Plan: Had COVID 11/06/2021, symptoms worsened 11/13 and was treated at [facility]. During that hospitalization rehab was recommended however did not qualify due to lack of participation in hospital rehab. On Friday cut bilateral wrists with superficial lacerations with kitchen knife, no emergent intervention needed. - Stool studies negative on 12/03. UA/UCx ordered - Grew Proteus vulgaris, comp leted a course of antibiotics - PT and OT while admitted. - Anticipate discharge to rehab as patient has been reported to have hoarding behaviors and reports of patient being unable to manage ADLs independently. -Placement will likely be very challenging as patient has psychiatric needs as well as medical needs. -Vital signs and basic labs essentially wnl (2) Depression: Plan: Patient previously was on antidepressants but these were stopped several years ago. Depression somewhat illness-related, with Hx transplant of pancreas and kidney with multiple health complaints since that time. Recently patient is very depressed and slit her wrists bilaterally with superficial lacerations from a kitchen knife this week on Friday or Friday. - Psychiatry consult requested and appreciate recommendations: modafinil increased to 100 mg on 12/03. -Per Psych, Modafinil is to help her energy, to participate in PT -Discontinue Modanafil upon discharge per Psych -May consider Sertraline 25mg daily -Discontinue Mirtazapine on account of urinary retention (3) Mixed stress and urge urinary incontinence: Plan: UA and UCx ordered on admission. UA was dirty; urine cx grew Proteus vulgaris. - Trialing oxybutynin 5mg daily for mixed incontinence. - Completed a course of antibiotics (4) Epistaxis: Plan: now resolved (5) Rectal urgency: Plan: No localized lower limb motor weakness to suggest cauda equina syndrome. - Stool studies ordered - negative on 12/03 (6) History of Clostridium difficile colitis: Plan: - Monitor (7) Suicidal ideation: Plan: See above (8) Hoarding behavior: Plan: See above (9) S/P kidney transplant: Plan: Baseline Cr ~0.5 - 0.8. Presently at baseline. - Continue Prograf as directed; home medication. - Continue Imuran. 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 (11) Hypertension: Plan: BP is 130/71 today. - Continue losartan 25mg daily (12) Esophageal reflux disease: Plan: Patient is not on any PPI or H2 nazario. Follow symptomatically. (13) DVT prophylaxis: Plan: Heparin 5000 units subcutaneously every 12 hours, hold on account of nose bleed Plan Code Status: FULL Awaiting placement Admission and Anticipated Discharge Date Admission Date: November 29, 2021 Subjective patient seen and examined, no new complaints, lying quietly in bed, said nose bleed has stopped, no new complaints Review of Systems Review of Systems: All systems reviewed are negative, apart from the ones contained in the history. Results & Data Results & Data ([facility]) Vital Signs (Past 12 Hours) Vital Signs Temp Pulse Resp BP Pulse Ox O2 Del Method 12/15/21 07:20 98.1 F 65 18 137/71 95 Room Air PG Care Time/CCT Total # of Minutes Spent Total Time Spent with Patient: Total time spent is greater than 50% in coordination of care (as documented) at patient's floor/unit and/or counseling patient: Coding Level of Care Code 30675 Subseq Hosp Care Lvl 2 Diagnoses Weakness R53.1 Depression F32.A Mixed stress and urge urinary incontinence N39.46 Epistaxis R04.0 Rectal urgency R15.2 History of Clostridium difficile colitis Z86.19 Suicidal ideation R45.851 Hoarding behavior F42.3 S/P kidney transplant Z94.0 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 Time Spent (min) 35
[2021-12-15] MEDS: OXYBUTYNIN CHLORIDE XL 5 MG TABCR PO SCH (20:45)
[2021-12-15] MEDS: MELATONIN 3 MG TAB PO PRN (20:50)
[2021-12-16] MEDS: ACETAMINOPHEN 325 MG TAB PO PRN (02:31)
[2021-12-16] MEDS: VITAMIN B COMPLEX TAB PO SCH (09:40)
[2021-12-16] MEDS: LOSARTAN POTASSIUM 25 MG TAB PO SCH (09:41)
[2021-12-16] MEDS: azaTHIOprine 25 MG TAB PO SCH (09:41)
[2021-12-16] MEDS: TACROLIMUS 1 MG PO SCH ×2 (09:43→20:30)
[2021-12-16] MEDS: modafiniL 100 MG TAB PO SCH (09:51)
--- NOTE | 2021-12-16 12:13 | Hospitalist Progress Note ---
Date of Service December 16, 2021 Assessment & Plan (1) Weakness: Plan: -Patient Had COVID 11/06/2021, symptoms worsened 11/13 and was treated at [facility]. - During that hospitalization rehab was recommended however did not qualify due to lack of participation in hospital rehab. -She later cut bilateral wrists with superficial lacerations with kitchen knife, but no emergent intervention was needed. - Stool studies negative on 12/03. -UA/UCx ordered - Grew Proteus vulgaris, she completed a course of antibiotics - Anticipate discharge to rehab as patient has been reported to have hoarding behaviors and reports of patient being unable to manage ADLs independently. -Placement will likely be very challenging as patient has psychiatric needs as well as medical needs. -Vital signs and basic labs essentially wnl (2) Depression: Plan: Patient previously was on antidepressants but these were stopped several years ago. Depression somewhat illness-related, with Hx transplant of pancreas and kidney with multiple health complaints since that time. Recently patient is very depressed and slit her wrists bilaterally with superficial lacerations from a kitchen knife this week on Friday or Friday. - Psychiatry consult requested and appreciate recommendations: modafinil increased to 100 mg on 12/03. -Per Psych, Modafinil is to help her energy, to participate in PT -Discontinue Modanafil upon discharge per Psych -May consider Sertraline 25mg daily -Discontinue Mirtazapine on account of urinary retention (3) Mixed stress and urge urinary incontinence: Plan: UA and UCx ordered on admission. UA was dirty; urine cx grew Proteus vulgaris. - Trialing oxybutynin 5mg daily for mixed incontinence. - Completed a course of antibiotics (4) Epistaxis: Plan: now resolved (5) Rectal urgency: Plan: No localized lower limb motor weakness to suggest cauda equina syndrome. - Stool studies ordered - negative on 12/03 (6) History of Clostridium difficile colitis: Plan: - Monitor (7) Suicidal ideation: Plan: See above (8) Hoarding behavior: Plan: See above (9) S/P kidney transplant: Plan: Baseline Cr ~0.5 - 0.8. Presently at baseline. - Continue Prograf as directed; home medication. - Continue Imuran. 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 (11) Hypertension: Plan: BP is 151/71 today. - Continue losartan 25mg daily (12) Esophageal reflux disease: Plan: Patient is not on any PPI or H2 nazario. Follow symptomatically. (13) DVT prophylaxis: Plan: Heparin 5000 units subcutaneously every 12 hours, hold on account of nose bleed Plan Code Status: FULL Awaiting placement Admission and Anticipated Discharge Date Admission Date: November 29, 2021 Subjective patient seen and examined, no new complaints, lying quietly in bed, no new complaints, asked for shower privilege, which was granted Review of Systems Review of Systems: All systems reviewed are negative, apart from the ones contained in the history. Physical Exam Physical Exam: The patient is awake, alert and oriented 3, well developed and well nourished, normocephalic and atraumatic, lying in bed and in no acute distress. HEENT--PERRL, EOMI, mucous membranes and oropharynx mildly dry Neck--supple. No JVD. No bruits. Thyroid normal, trachea midline, no adenopathy . Heart--normal S1 and S2. No murmurs, rubs or gallops. Lungs--clear bilaterally, no respiratory distress, no accessory muscle use. Abdomen--normal bowel sounds and soft. Mild epigastric and left sided abdominal pain Extremities--no cyanosis or clubbing. No edema. Dermatologic--normal skin turgor, normal color, no abnormal lymph nodes, no rash. Neurologic--cranial nerves II through XII grossly intact. Rheumatologic--normal range of motion. Psychiatric--normal affect. Results & Data Results & Data ([facility]) Vital Signs (Past 12 Hours) Vital Signs Temp Pulse Resp BP Pulse Ox O2 Del Method 12/16/21 09:40 151/71 H 12/16/21 07:48 97.9 F 67 18 135/67 96 Room Air PG Care Time/CCT Total # of Minutes Spent Total Time Spent with Patient: Total time spent is greater than 50% in coordination of care (as documented) at patient's floor/unit and/or counseling patient: Coding Level of Care Code 13321 Subseq Hosp Care Lvl 2 Diagnoses Weakness R53.1 Depression F32.A Mixed stress and urge urinary incontinence N39.46 Epistaxis R04.0 Rectal urgency R15.2 History of Clostridium difficile colitis Z86.19 Suicidal ideation R45.851 Hoarding behavior F42.3 S/P kidney transplant Z94.0 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 Time Spent (min) 35
[2021-12-16] MEDS: OXYBUTYNIN CHLORIDE XL 5 MG TABCR PO SCH (20:30)
[2021-12-16] MEDS: MELATONIN 3 MG TAB PO PRN (21:25)
--- NOTE | 2021-12-17 07:50 | Hospitalist Progress Note ---
Date of Service December 17, 2021 Assessment & Plan (1) Weakness: Plan: - Patient Had COVID 11/06/2021, symptoms worsened 11/13 and was treated at [facility]. - During that hospitalization rehab was recommended however did not qualify due to lack of participation in hospital rehab. - She later cut bilateral wrists with superficial lacerations with kitchen knife, but no emergent intervention was needed. - Stool studies negative on 12/03. - UA/UCx ordered - Grew Proteus vulgaris, she has since completed a course of antibiotics. -Patient reports being currently at baseline with regard to her weakness. - Anticipate discharge to rehab as patient has been reported to have hoarding behaviors, ongoing medical needs, inability to manage ADLs independently. - PT and OT ongoing, plan for SNF on discharge. (2) Depression: Plan: - Patient previously was on antidepressants but these were stopped several years ago. - Depression somewhat illness-related, with Hx transplant of pancreas and kidney with multiple health complaints since that time. - Psychiatry consult requested and appreciate recommendations: Continue modafinil 100 mg on 12/03. - Discontinue Modafinil upon discharge per Psych. - Consider SSRI such as sertraline 25 mg daily if patient accepts. - Mirtazapine discontinued this admission due to urinary retention issues. -Continue melatonin as needed for sleep. (3) Mixed stress and urge urinary incontinence: Plan: - UA and UCx ordered on admission. UA was dirty; urine cx grew Proteus vulgaris. - Trialing oxybutynin 5mg daily for mixed incontinence. - Completed a course of antibiotics. (4) Epistaxis: Plan: - Now resolved. (5) Rectal urgency: Plan: - No localized lower limb motor weakness to suggest cauda equina syndrome. - Stool studies ordered - negative on 12/03. - Suspect IBS given concurrent anxiety and depression. (6) History of Clostridium difficile colitis: Plan: - Negative this admission. (7) Suicidal ideation: Plan: - Resolved. (8) Hoarding behavior: Plan: See above (9) S/P kidney transplant: Plan: - Baseline Cr ~0.5 - 0.8. Presently at baseline. - Continue Prograf as directed; home medication. - Continue Imuran. 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 (11) Hypertension: Plan: - BP at goal for age. - Continue losartan 25mg daily (12) Esophageal reflux disease: Plan: - Patient is not on any PPI or H2 nazario. - Follow symptomatically. (13) DVT prophylaxis: Plan: - Resume heparin 5000 units SQ every 12 hours. Plan Code Status: FULL FEN: Regular Dispo: Med/Surg; awaiting SNF placement Admission and Anticipated Discharge Date Admission Date: November 29, 2021 Subjective No acute events overnight. Patient is somewhat tearful worried about "I am too complicated and no one wants to have to take care of me". She denies any SI or HI. She denies any abdominal pain, nausea, vomiting, chest pain, shortness of breath. She reports that since starting oxybutynin her urinary issues have improved some, and her sleep is somewhat better with melatonin. She admits to still having fluctuating bowels with diarrhea and constipation. Review of Systems Review of Systems: All systems reviewed & are unremarkable except as noted in Subjective Physical Exam Constitutional: WD/WN, vitals as above Respiratory: normal respiratory effort, lungs clear to auscultation Cardiovascular: RRR, no murmur, no edema Gastrointestinal (Abdomen): normal bowel sounds, soft, nontender, no hepatosplenomegaly Skin: no rashes, warm and dry Psychiatric: Orientation: alert and oriented x 3 Affect: + tearful affect Results & Data Results & Data ([facility]) Vital Signs (Past 12 Hours) Vital Signs Temp Pulse Resp BP Pulse Ox O2 Del Method 12/16/21 21:24 36.5 C 64 16 149/70 H 97 Room Air PG Care Time/CCT Total # of Minutes Spent Total Time Spent with Patient: Total time spent is greater than 50% in coordination of care (as documented) at patient's floor/unit and/or counseling patient: Coding Level of Care Code 07806 Subseq Hosp Care Lvl 2 Diagnoses Weakness R53.1 Depression F32.A Mixed stress and urge urinary incontinence N39.46 Epistaxis R04.0 Rectal urgency R15.2 History of Clostridium difficile colitis Z86.19 Suicidal ideation R45.851 Hoarding behavior F42.3 S/P kidney transplant Z94.0 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
[2021-12-17] MEDS: azaTHIOprine 25 MG TAB PO SCH (08:33)
[2021-12-17] MEDS: LOSARTAN POTASSIUM 25 MG TAB PO SCH (08:34)
[2021-12-17] MEDS: TACROLIMUS 1 MG PO SCH ×2 (08:34→20:39)
[2021-12-17] MEDS: VITAMIN B COMPLEX TAB PO SCH (08:34)
[2021-12-17] MEDS: modafiniL 100 MG TAB PO SCH (08:41)
[2021-12-17] MEDS: HEPARIN SOD 5,000 UNIT/0.5 ML VIAL SQ SCH (20:39)
[2021-12-17] MEDS: OXYBUTYNIN CHLORIDE XL 5 MG TABCR PO SCH (20:39)
[2021-12-17] MEDS: MELATONIN 3 MG TAB PO PRN (21:29)
[2021-12-18] MEDS: MAGNESIUM HYDROXIDE SUSP 30 ML UDC PO PRN (05:30)
[2021-12-18 07:07] LABS: Hematocrit (blood only) 33.7 % (34.1-44.9); Hemoglobin 11.5 g/dl (12.0-16.0); Mean Corpuscular Hemoglobin 31.6 pg (25.0-34.0); Mean Corpuscular Hgb Conc 34.1 g/dL (32.0-36.0); Mean Corpuscular Volume 92.6 fL (80.0-100.0); Mean Platelet Volume 10.5 fL (9.4-12.3); Platelet Count 203 K/uL (130-400); RDW Coefficient of Variation 14.3 % (11.5-14.5); RDW Standard Deviation 48.1 fL (36.4-46.3); Red Blood Count 3.64 M/uL (3.93-5.22); White Blood Count 4.94 K/ul (4.8-10.8)
[2021-12-18 07:44] LABS: BUN Creatinine Ratio 19.4 (10-20); Calcium 9.4 mg/dl (8.5-10.1); Creatinine Clr Calc Pharmacy 67.6 ml/min; Est GFR (African American) 100.1 ml/min; Est GFR (Non-African American) 86.4 ml/min
[2021-12-18] MEDS: LOSARTAN POTASSIUM 25 MG TAB PO SCH (09:47)
[2021-12-18] MEDS: azaTHIOprine 25 MG TAB PO SCH (09:48)
[2021-12-18] MEDS: VITAMIN B COMPLEX TAB PO SCH (09:48)
[2021-12-18] MEDS: HEPARIN SOD 5,000 UNIT/0.5 ML VIAL SQ SCH ×2 (09:49→20:16)
[2021-12-18] MEDS: TACROLIMUS 1 MG PO SCH ×2 (09:50→20:15)
--- NOTE | 2021-12-18 11:49 | Hospitalist Progress Note ---
Date of Service December 18, 2021 Assessment & Plan (1) Weakness: Plan: 76-year-old female past medical history as significant for mixed stress and urge urinary incontinence, history of C. difficile colitis, depression, anxiety, kidney and pancreas transplant, hypertension, GERD originally admitted for weakness and suicidal ideation. Has since been evaluated by psychiatry and no longer endorsing SI. Weakness: - Patient Had COVID 11/06/2021, symptoms worsened 11/13 and was treated at [facility]. - During that hospitalization rehab was recommended however did not qualify due to lack of participation in hospital rehab. - She later cut bilateral wrists with superficial lacerations with kitchen knife, but no emergent intervention was needed. - Stool studies negative on 12/03. - UA/UCx ordered - Grew Proteus vulgaris, she has since completed a course of antibiotics. - Patient reports being currently at baseline with regard to her weakness. - Anticipate discharge to rehab due to patient's inability to manage ADLs independently. - PT and OT ongoing, plan for SNF on discharge. (2) Depression: Plan: - Patient previously was on antidepressants but these were stopped several years ago. - Depression somewhat illness-related, with Hx transplant of pancreas and kidney with multiple health complaints since that time. - Psychiatry consult requested and appreciate recommendations: Continue modafinil 100 mg on 12/03. - Discontinue Modafinil upon discharge per Psych. - Consider SSRI such as sertraline 25 mg daily if patient accepts. - Mirtazapine discontinued this admission due to urinary retention issues. - Continue melatonin as needed for sleep. (3) Mixed stress and urge urinary incontinence: Plan: - UA and UCx ordered on admission. UA was dirty; urine cx grew Proteus vulgaris. - Completed a course of antibiotics. - Patient's urinary symptoms are improved with a trial of oxybutynin during this admission. We will continue. (4) Epistaxis: Plan: - Now resolved. Patient often refuses DVT prophylaxis Heparin due to epistaxis. (5) Rectal urgency: Plan: - No localized lower limb motor weakness to suggest cauda equina syndrome. - Stool studies ordered - negative on 12/03. - C. difficile testing not performed due to no diarrhea x24 hours on admission. - Suspect IBS given concurrent anxiety and depression. (6) History of Clostridium difficile colitis: Plan: - Negative this admission. (7) Suicidal ideation: Plan: - Resolved. (8) Hoarding behavior: Plan: See above (9) S/P kidney transplant: Plan: - Baseline Cr ~0.5 - 0.8. Presently at baseline. - Continue Prograf as directed; home medication. - Continue Imuran. 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 (11) Hypertension: Plan: - BP at goal for age. - Continue losartan 25mg daily. (12) Esophageal reflux disease: Plan: - Patient is not on any PPI or H2 nazario. - Follow symptomatically. (13) DVT prophylaxis: Plan: - Resume heparin 5000 units SQ every 12 hours. Plan Code Status: FULL FEN: Regular DVT prophylaxis: Heparin twice daily Dispo: Med/Surg; awaiting SNF placement Admission and Anticipated Discharge Date Admission Date: November 29, 2021 Subjective Overnight patient had area after receiving mag hydroxide for constipation. She requests a different stool softener in the future. Review of Systems Review of Systems: All systems reviewed are negative, apart from the ones contained in the history. Constitutional: no fever and no chills Respiratory: no cough and no dyspnea Cardiovascular: no chest pain and no palpitations Gastrointestinal: no abdominal pain, no nausea and no vomiting Physical Exam Constitutional: WD/WN, vitals as above Respiratory: normal respiratory effort, lungs clear to auscultation Cardiovascular: RRR, no murmur, no edema Gastrointestinal (Abdomen): normal bowel sounds, soft, nontender, no hepatosplenomegaly Skin: no rashes, warm and dry Psychiatric: Orientation: alert and oriented x 3 Affect: + depressed affect Results & Data Results & Data ([facility]) Vital Signs (Past 12 Hours) Vital Signs Temp Pulse Resp BP Pulse Ox O2 Del Method 12/18/21 08:14 36.6 C 67 18 147/76 H 93 Room Air PG Care Time/CCT Total # of Minutes Spent Total Time Spent with Patient: Total time spent is greater than 50% in coordination of care (as documented) at patient's floor/unit and/or counseling patient: Coding Level of Care Code 15372 Subseq Hosp Care Lvl 2 Diagnoses Weakness R53.1 Depression F32.A Mixed stress and urge urinary incontinence N39.46 Epistaxis R04.0 Rectal urgency R15.2 History of Clostridium difficile colitis Z86.19 Suicidal ideation R45.851 Hoarding behavior F42.3 S/P kidney transplant Z94.0 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
[2021-12-18] MEDS: modafiniL 100 MG TAB PO SCH (16:56)
[2021-12-18] MEDS: OXYBUTYNIN CHLORIDE XL 5 MG TABCR PO SCH (20:16)
[2021-12-18] MEDS: MELATONIN 3 MG TAB PO PRN (21:49)
[2021-12-19] MEDS: TACROLIMUS 1 MG PO SCH ×3 (08:05→21:14)
[2021-12-19] MEDS: modafiniL 100 MG TAB PO SCH (08:05)
[2021-12-19] MEDS: LOSARTAN POTASSIUM 25 MG TAB PO SCH (08:05)
[2021-12-19] MEDS: VITAMIN B COMPLEX TAB PO SCH (08:05)
[2021-12-19] MEDS: azaTHIOprine 25 MG TAB PO SCH (08:08)
--- NOTE | 2021-12-19 09:18 | Hospitalist Progress Note ---
Date of Service December 19, 2021 Assessment & Plan (1) Weakness: Plan: 76-year-old female past medical history as significant for mixed stress and urge urinary incontinence, history of C. difficile colitis, depression, anxiety, kidney and pancreas transplant, hypertension, GERD originally admitted for weakness and suicidal ideation. Has since been evaluated by psychiatry and no longer endorsing SI. Weakness: - Patient Had COVID 11/06/2021, symptoms worsened 11/13 and was treated at [facility]. - During that hospitalization rehab was recommended however did not qualify due to lack of participation in hospital rehab. - She later cut bilateral wrists with superficial lacerations with kitchen knife, but no emergent intervention was needed. - Stool studies negative on 12/03. - UA/UCx this admission grew Proteus vulgaris; she has since completed a course of antibiotics. - Patient reports being currently at baseline with regard to her weakness. - Anticipate discharge to rehab due to patient's inability to manage ADLs independently. Pending patient decision in this regard. - PT and OT ongoing, plan for SNF on discharge. (2) Depression: Plan: - Patient previously was on antidepressants but these were stopped several years ago. - Depression somewhat illness-related, with Hx transplant of pancreas and kidney with multiple health complaints since that time. - Psychiatry consult requested and appreciate recommendations: Continue modafinil 100 mg on 12/03. - Discontinue Modafinil upon discharge per Psych. - Mirtazapine discontinued this admission due to urinary retention issues. - Continue melatonin as needed for sleep. (3) Mixed stress and urge urinary incontinence: Plan: - UA and UCx ordered on admission. UA was dirty; urine cx grew Proteus vulgaris. - Completed a course of antibiotics. - Patient's urinary symptoms are improved with a trial of oxybutynin during this admission; will continue. (4) Rectal urgency: Plan: - No localized lower limb motor weakness to suggest cauda equina syndrome. - Stool studies ordered - negative on 12/03. - C. difficile testing not performed due to no diarrhea x24 hours on admission. - Suspect IBS given concurrent anxiety and depression. (5) Epistaxis: Plan: - Now resolved. Patient often refuses DVT prophylaxis Heparin due to epistaxis. (6) History of Clostridium difficile colitis: Plan: - Negative this admission. (7) Suicidal ideation: Plan: - Resolved. (8) Hoarding behavior: Plan: See above (9) S/P kidney transplant: Plan: - Baseline Cr ~0.5 - 0.8. - Continue Prograf as directed; home medication. - Continue Imuran. No renal dysplasia this admission. 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 (11) Hypertension: Plan: - BP at goal for age. - Continue losartan 25mg daily. (12) Esophageal reflux disease: Plan: - Patient is not on any PPI or H2 nazario. - Follow symptomatically. (13) DVT prophylaxis: Plan: - Resume heparin 5000 units SQ every 12 hours. Plan Code Status: FULL FEN: Regular DVT prophylaxis: Heparin twice daily Dispo: Med/Surg; awaiting SNF placement Admission and Anticipated Discharge Date Admission Date: November 29, 2021 Subjective Patient without acute events overnight. Today she was expressing concern about requirement of COVID booster for possible SNF placement. She reports that when she had her other 2 COVID vaccines her lower extremities were so weak for the days following that she could not do anything and is worried that she will have a decline in her functional status if she has it again. On the opposite side, she is worried about being by herself at home and not being able to cook or care for herself. Lastly, she is worried about being around other people into nursing facility given her immunocompromised state. Review of Systems Constitutional: no fever and no chills Respiratory: no cough and no dyspnea Cardiovascular: no chest pain and no palpitations Gastrointestinal: no abdominal pain, no nausea and no vomiting Physical Exam Constitutional: WD/WN, vitals as above Respiratory: normal respiratory effort, lungs clear to auscultation Cardiovascular: RRR, no murmur, no edema Musculoskeletal: Moves all extremities equally Skin: no rashes, warm and dry Psychiatric: Orientation: alert and oriented x 3 Affect: + anxious affect Results & Data Results & Data ([facility]) Vital Signs (Past 12 Hours) Vital Signs Temp Pulse Resp BP Pulse Ox O2 Del Method 12/18/21 22:24 36.6 C 71 18 145/71 H 96 Room Air PG Care Time/CCT Total # of Minutes Spent Total Time Spent with Patient: Total time spent is greater than 50% in coordination of care (as documented) at patient's floor/unit and/or counseling patient: Coding Level of Care Code 64278 Subseq Hosp Care Lvl 2 Diagnoses Weakness R53.1 Depression F32.A Mixed stress and urge urinary incontinence N39.46 Rectal urgency R15.2 Epistaxis R04.0 History of Clostridium difficile colitis Z86.19 Suicidal ideation R45.851 Hoarding behavior F42.3 S/P kidney transplant Z94.0 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
[2021-12-19] MEDS: HEPARIN SOD 5,000 UNIT/0.5 ML VIAL SQ SCH ×2 (10:37→21:10)
[2021-12-19] MEDS: OXYBUTYNIN CHLORIDE XL 5 MG TABCR PO SCH (21:09)
[2021-12-19] MEDS: MELATONIN 3 MG TAB PO PRN (21:55)
[2021-12-20] MEDS: modafiniL 100 MG TAB PO SCH (08:07)
[2021-12-20] MEDS: HEPARIN SOD 5,000 UNIT/0.5 ML VIAL SQ SCH ×2 (08:07→21:16)
[2021-12-20] MEDS: azaTHIOprine 25 MG TAB PO SCH (08:08)
[2021-12-20] MEDS: VITAMIN B COMPLEX TAB PO SCH (08:08)
[2021-12-20] MEDS: LOSARTAN POTASSIUM 25 MG TAB PO SCH (08:08)
[2021-12-20] MEDS: TACROLIMUS 1 MG PO SCH ×2 (08:09→21:16)
--- NOTE | 2021-12-20 12:29 | Hospitalist Progress Note ---
Date of Service December 20, 2021 Assessment & Plan (1) Weakness: Plan: 76-year-old female past medical history as significant for mixed stress and urge urinary incontinence, history of C. difficile colitis, depression, anxiety, kidney and pancreas transplant, hypertension, GERD originally admitted for weakness and suicidal ideation. Has since been evaluated by psychiatry and no longer endorsing SI. Weakness: - Patient Had COVID 11/06/2021, symptoms worsened 11/13 and was treated at [facility]. - During that hospitalization rehab was recommended however did not qualify due to lack of participation in hospital rehab. - She later cut bilateral wrists with superficial lacerations with kitchen knife, but no emergent intervention was needed. - Stool studies negative on 12/03. - UA/UCx this admission grew Proteus vulgaris; she has since completed a course of antibiotics. - Patient reports being currently at baseline with regard to her weakness. - Anticipate discharge to rehab due to patient's inability to manage ADLs independently. Pending patient decision in this regard. - PT and OT ongoing, plan for SNF on discharge. (2) Depression: Plan: - Patient previously was on antidepressants but these were stopped several years ago. - Depression somewhat illness-related, with Hx transplant of pancreas and kidney with multiple health complaints since that time. - Psychiatry consult requested and appreciate recommendations: Continue modafinil 100 mg on 12/03. - Discontinue Modafinil upon discharge per Psych. - Mirtazapine discontinued this admission due to urinary retention issues. - Continue melatonin as needed for sleep. (3) Mixed stress and urge urinary incontinence: Plan: - UA and UCx ordered on admission. UA was dirty; urine cx grew Proteus vulgaris. - Completed a course of antibiotics. - Patient's urinary symptoms are improved with a trial of oxybutynin during this admission; will continue. (4) Rectal urgency: Plan: - No localized lower limb motor weakness to suggest cauda equina syndrome. - Stool studies ordered - negative on 12/03. - C. difficile testing not performed due to no diarrhea x24 hours on admission. - Suspect IBS given concurrent anxiety and depression. (5) Epistaxis: Plan: - Now resolved. Patient often refuses DVT prophylaxis Heparin due to epistaxis. (6) History of Clostridium difficile colitis: Plan: - Negative this admission. (7) Suicidal ideation: Plan: - Resolved. (8) Hoarding behavior: Plan: - Patient's daughter and family are cleaning parts of her house in order to make the space more comfortable for when Tunde ultimately does come home, either from residential facility or from the hospital directly. (9) S/P kidney transplant: Plan: - Baseline Cr ~0.5 - 0.8. - Continue Prograf as directed; home medication. - Continue Imuran. - No renal dysfunction this admission. 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 (11) Hypertension: Plan: - BP at goal for age. - Continue losartan 25mg daily. (12) Esophageal reflux disease: Plan: - Patient is not on any PPI or H2 nazario. - Follow symptomatically. (13) DVT prophylaxis: Plan: - Continue heparin 5000 units SQ every 12 hours. Plan Code Status: FULL FEN: Regular DVT prophylaxis: Heparin twice daily Dispo: Med/Surg; awaiting SNF placement Admission and Anticipated Discharge Date Admission Date: November 29, 2021 Subjective No acute events overnight. Patient is very reticent about COVID-19 booster [place] she would be okay with being in "isolation" at the residential facility if that is what was required for for her not to have it done. She is anxious about "losing all of her stuff" at home. She however reports that her biggest concern is her ability to care for herself at home. In discussion with her daughter, patient has boxes and boxes of new things that she buys online, and daughter has been cleaning out patient's bedroom, kitchen, living room in order to make the space more livable and accommodating in the event that she does come home. Review of Systems Constitutional: no fever and no chills Respiratory: no cough and no dyspnea Cardiovascular: no chest pain and no palpitations Gastrointestinal: no abdominal pain, no nausea and no vomiting Physical Exam Constitutional: WD/WN, vitals as above Respiratory: normal respiratory effort, lungs clear to auscultation Cardiovascular: RRR, no murmur, no edema Skin: no rashes, warm and dry Psychiatric: Orientation: alert and oriented x 3 Affect: + anxious affect Results & Data Results & Data ([facility]) Vital Signs (Past 12 Hours) Vital Signs Temp Pulse Resp BP Pulse Ox O2 Del Method 12/20/21 08:00 36.8 C 67 16 161/79 H 97 Room Air PG Care Time/CCT Total # of Minutes Spent Total Time Spent with Patient: Total time spent is greater than 50% in coordination of care (as documented) at patient's floor/unit and/or counseling patient: Coding Level of Care Code 71883 Subseq Hosp Care Lvl 2 Diagnoses Weakness R53.1 Depression F32.A Mixed stress and urge urinary incontinence N39.46 Rectal urgency R15.2 Epistaxis R04.0 History of Clostridium difficile colitis Z86.19 Suicidal ideation R45.851 Hoarding behavior F42.3 S/P kidney transplant Z94.0 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
[2021-12-20] MEDS: OXYBUTYNIN CHLORIDE XL 5 MG TABCR PO SCH (21:15)
[2021-12-20] MEDS: MELATONIN 3 MG TAB PO PRN (21:16)
[2021-12-21] MEDS: HEPARIN SOD 5,000 UNIT/0.5 ML VIAL SQ SCH ×2 (07:21→20:33)
[2021-12-21] MEDS: modafiniL 100 MG TAB PO SCH (07:25)
--- NOTE | 2021-12-21 08:02 | Hospitalist Progress Note ---
Date of Service December 21, 2021 Assessment & Plan (1) Weakness: Plan: 76-year-old female past medical history as significant for mixed stress and urge urinary incontinence, history of C. difficile colitis, depression, anxiety, kidney and pancreas transplant, hypertension, GERD originally admitted for weakness and suicidal ideation. Has since been evaluated by psychiatry and no longer endorsing SI. Weakness: - Patient Had COVID 11/06/2021, symptoms worsened 11/13 and was treated at [facility]. - During that hospitalization rehab was recommended however did not qualify due to lack of participation in hospital rehab. - She later cut bilateral wrists with superficial lacerations with kitchen knife, but no emergent intervention was needed. - Stool studies negative on 12/03. - UA/UCx this admission grew Proteus vulgaris; she has since completed a course of antibiotics. - Patient reports being currently at baseline with regard to her weakness. - Anticipate discharge to rehab due to patient's inability to manage ADLs independently. Pending patient decision in this regard. - PT and OT ongoing, plan for SNF on discharge. Case management asked for expedited review of it authorization for [facility] facility today given patient's medical stability now for several days. (2) Depression: Plan: - Patient previously was on antidepressants but these were stopped several years ago. - Depression somewhat illness-related, with Hx transplant of pancreas and kidney with multiple health complaints since that time. - Psychiatry consult requested and appreciate recommendations: Continue modafinil 100 mg on 12/03. - Discontinue Modafinil upon discharge per Psych. - Mirtazapine discontinued this admission due to urinary retention issues. - Continue melatonin as needed for sleep. (3) Mixed stress and urge urinary incontinence: Plan: - UA and UCx ordered on admission. UA was dirty; urine cx grew Proteus vulgaris. - Completed a course of antibiotics. - Patient's urinary symptoms are improved with a trial of oxybutynin during this admission; will continue. (4) Rectal urgency: Plan: - No localized lower limb motor weakness to suggest cauda equina syndrome. - Stool studies ordered - negative on 12/03. - C. difficile testing not performed due to no diarrhea x24 hours on admission. - Suspect IBS given concurrent anxiety and depression. (5) Epistaxis: Plan: - Now resolved. (6) History of Clostridium difficile colitis: Plan: - Negative this admission. (7) Suicidal ideation: Plan: - Resolved. (8) Hoarding behavior: Plan: - Patient's daughter and family are cleaning parts of her house in order to make the space more comfortable for when Tunde ultimately does come home, either from [facility] facility or from the hospital directly. (9) S/P kidney transplant: Plan: - Baseline Cr ~0.5 - 0.8. - Continue Prograf as directed; home medication. - Continue Imuran. - No renal dysfunction this admission. 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 (11) Hypertension: Plan: - BP at goal for age. - Continue losartan 25mg daily. (12) Esophageal reflux disease: Plan: - Patient is not on any PPI or H2 nazario. - Follow symptomatically. (13) DVT prophylaxis: Plan: - Continue heparin 5000 units SQ every 12 hours. Plan Code Status: FULL FEN: Regular DVT prophylaxis: Heparin twice daily Dispo: Med/Surg; awaiting SNF placement Admission and Anticipated Discharge Date Admission Date: November 29, 2021 Subjective No acute events overnight. Patient reports feeling very anxious today and asks for an anxiolytic. She also notes that she is feeling somewhat constipated and just recently took a stool softener. Review of Systems Review of Systems: All systems reviewed are negative, apart from the ones contained in the history. Constitutional: no fever and no chills Respiratory: no cough and no dyspnea Cardiovascular: no chest pain and no palpitations Gastrointestinal: no abdominal pain, no nausea and no vomiting Physical Exam Constitutional: WD/WN, vitals as above Respiratory: normal respiratory effort, lungs clear to auscultation Cardiovascular: RRR, no murmur, no edema Gastrointestinal (Abdomen): normal bowel sounds, soft, nontender, no hepatosplenomegaly Skin: no rashes, warm and dry Psychiatric: Orientation: alert and oriented x 3 Affect: + depressed affect, + anxious affect and + tearful affect Results & Data Results & Data ([facility]) Vital Signs (Past 12 Hours) Vital Signs Temp Pulse Resp BP Pulse Ox O2 Del Method 12/20/21 21:20 36.7 C 73 18 148/74 H 97 Room Air PG Care Time/CCT Total # of Minutes Spent Total Time Spent with Patient: Total time spent is greater than 50% in coordination of care (as documented) at patient's floor/unit and/or counseling patient: Coding Level of Care Code 53611 Subseq Hosp Care Lvl 2 Diagnoses Weakness R53.1 Depression F32.A Mixed stress and urge urinary incontinence N39.46 Rectal urgency R15.2 Epistaxis R04.0 History of Clostridium difficile colitis Z86.19 Suicidal ideation R45.851 Hoarding behavior F42.3 S/P kidney transplant Z94.0 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
[2021-12-21] MEDS: VITAMIN B COMPLEX TAB PO SCH (08:25)
[2021-12-21] MEDS: LOSARTAN POTASSIUM 25 MG TAB PO SCH (08:25)
[2021-12-21] MEDS: TACROLIMUS 1 MG PO SCH ×2 (08:25→20:33)
[2021-12-21] MEDS: azaTHIOprine 25 MG TAB PO SCH (08:25)
[2021-12-21] MEDS: bisacodyL 5 MG TABEC PO PRN (12:31)
[2021-12-21] MEDS ORDERED: LORazepam 0.5 MG TAB PO STA (13:29)
[2021-12-21] MEDS: OXYBUTYNIN CHLORIDE XL 5 MG TABCR PO SCH (20:33)
[2021-12-21] MEDS: MELATONIN 3 MG TAB PO PRN (22:44)
[2021-12-22] MEDS: HEPARIN SOD 5,000 UNIT/0.5 ML VIAL SQ SCH (07:03)
[2021-12-22] MEDS: VITAMIN B COMPLEX TAB PO SCH (08:48)
[2021-12-22] MEDS: LOSARTAN POTASSIUM 25 MG TAB PO SCH (08:48)
[2021-12-22] MEDS: modafiniL 100 MG TAB PO SCH (08:48)
[2021-12-22] MEDS: TACROLIMUS 1 MG PO SCH (08:49)
[2021-12-22] MEDS: azaTHIOprine 25 MG TAB PO SCH (08:49)
--- NOTE | 2021-12-22 08:52 | Hospitalist Progress Note ---
Date of Service December 22, 2021 Assessment & Plan (1) Weakness: Plan: 76-year-old female past medical history as significant for mixed stress and urge urinary incontinence, history of C. difficile colitis, depression, anxiety, kidney and pancreas transplant, hypertension, GERD originally admitted for weakness and suicidal ideation. Has since been evaluated by psychiatry and no longer endorsing SI. Weakness: - Patient Had COVID 11/06/2021, symptoms worsened 11/13 and was treated at [facility]. - During that hospitalization rehab was recommended however did not qualify due to lack of participation in hospital rehab. - She later cut bilateral wrists with superficial lacerations with kitchen knife, but no emergent intervention was needed. - Stool studies negative on 12/03. - UA/UCx this admission grew Proteus vulgaris; she has since completed a course of antibiotics. - Patient reports being currently at baseline with regard to her weakness. - Anticipate discharge to rehab due to patient's inability to manage ADLs independently. Pending patient decision in this regard. - PT and OT ongoing, plan for SNF on discharge. Case management [facility] given patient's medical stability now for several days. (2) Depression: Plan: - Patient previously was on antidepressants but these were stopped several years ago. - Depression somewhat illness-related, with Hx transplant of pancreas and kidney with multiple health complaints since that time. - Psychiatry consult requested and appreciate recommendations: Continue modafinil 100 mg on 12/03. - Discontinue Modafinil upon discharge per Psych. - Mirtazapine discontinued this admission due to urinary retention issues. - Continue melatonin as needed for sleep. (3) Mixed stress and urge urinary incontinence: Plan: - UA and UCx ordered on admission. UA was dirty; urine cx grew Proteus vulgaris. - Completed a course of antibiotics. - Patient's urinary symptoms are improved with a trial of oxybutynin during this admission; will continue. (4) Rectal urgency: Plan: - No localized lower limb motor weakness to suggest cauda equina syndrome. - Stool studies ordered - negative on 12/03. - C. difficile testing not performed due to no diarrhea x24 hours on admission. - Suspect IBS given concurrent anxiety and depression. (5) Epistaxis: Plan: - Now resolved. (6) History of Clostridium difficile colitis: Plan: - Negative this admission. (7) Suicidal ideation: Plan: - Resolved. (8) Hoarding behavior: Plan: - Patient's daughter and family are cleaning parts of her house in order to make the space more comfortable for when Tunde ultimately does come home, either from jail facility or from the hospital directly. (9) S/P kidney transplant: Plan: - Baseline Cr ~0.5 - 0.8. - Continue Prograf as directed; home medication. - Continue Imuran. - No renal dysfunction this admission. 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 (11) Hypertension: Plan: - BP at goal for age. - Continue losartan 25mg daily. (12) Esophageal reflux disease: Plan: - Patient is not on any PPI or H2 nazario. - Follow symptomatically. (13) DVT prophylaxis: Plan: - Continue heparin 5000 units SQ every 12 hours. Plan Code Status: FULL FEN: Regular DVT prophylaxis: Heparin twice daily Dispo: Med/Surg; awaiting SNF placement Admission and Anticipated Discharge Date Admission Date: November 29, 2021 Results & Data Results & Data ([facility]) Vital Signs (Past 12 Hours) Vital Signs Temp Pulse Resp BP Pulse Ox O2 Del Method 12/22/21 07:10 36.8 C 68 16 152/78 H 96 Room Air PG Care Time/CCT Total # of Minutes Spent Total Time Spent with Patient: Total time spent is greater than 50% in coordination of care (as documented) at patient's floor/unit and/or counseling patient: Coding Diagnoses Weakness R53.1 Depression F32.A Mixed stress and urge urinary incontinence N39.46 Rectal urgency R15.2 Epistaxis R04.0 History of Clostridium difficile colitis Z86.19 Suicidal ideation R45.851 Hoarding behavior F42.3 S/P kidney transplant Z94.0 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
[2021-12-22] MEDS: bisacodyL 5 MG TABEC PO PRN (08:58)
--- NOTE | 2021-12-22 09:07 | Discharge Summary ---
Discharge Summary Date of Service December 22, 2021 Admission HPI Per Admitting Provider Attending: Dr. Veliz This is a 76-year-old female with past medical history of pancreatic as well as kidney transplant. She also has a history of hypertension and irritable bowel disease with associated C. difficile colitis in the past. Patient presents for abdominal pain as well as recent attempt to harm herself by slitting bilateral wrists. 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 difficile colitis * Was ill 11/06/2021 and presented primary care office. She was found to be positive for COVID and sent home with an unknown antibiotic * On 11/13/2021 patient had recurrence of illness associated with nausea, v omiting, diarrhea. She presented to [facility] and was placed on IV antibiotics and IV fluids * Patient was originally planned to be discharged to rehab but due to the hol, this was unable to be accomplished. After the holiday on 11/20/2021 insurance denied rehab stay as patient refused inpatient therapies Patient was discharged home 11/20/2021 where she lives alone. Her daughter checked on her frequently but patient had no appetite and was not eating or drinking well. On 11/25/2021 daughter checked on patient and she seemed to be doing well. She was then seen on 11/28/2021 and at this time it was identified that she had attempted to cut her wrist with a kitchen knife. Patient was then sent to primary care office for evaluation today and was referred to the emergency department for evaluation. CT scan of the abdomen pelvis showed no new findings as compared to previous CT. Patient's labs were relatively stable with the exception of a lactic acid of 2.1. This was treated with 1 L of normal saline and corrected to 1.2. Patient was also noted to have hypercalcemia at 10.2 mg/[place] with no physical evidence of hypercalcemia. Procalcitonin is negative. There is no leukocytosis. Hemoglobin is stable at 14.5 with a hematocrit of 41.5. Patient is afebrile and hemodynamically stable. She is currently saturating 98% on room air. She complains of mild abdominal pain but no nausea or vomiting. Long discussion with patient and daughter Jeanie. Patient wishes to be a DNR/DNI. A POLST form was completed after been explained to the patient and the daughter. The patient is a lifelong non-smoker. Negative for any ethanol consumption. She currently lives alone and has struggled with hoarding at home. Admission Exam Per Admitting Provider GENERAL : No acute distress EYES: No icterus, gaze conjugate. Pupils equal round and reactive to light and accommodation NOSE: No evidence of epistaxis MOUTH: No lesions or candidiasis. Mucosa moist. No evidence of posterior oropharynx bleeding NECK: Supple. No carotid bruits or stridor. No appreciation of cervical l ymphadenopathy. No appreciation of supraclavicular lymphadenopathy. LUNGS: CTA B/L, no wheezes, rales or rhonchi HEART: Regular, rate controlled. No ectopy or evidence of heart murmur ABDOMEN: Soft, NT, ND, BS Present EXTREMITIES: Bilateral LE edema, pedal pulses intact and equal bilaterally. Positive for exquisite calf pain bilaterally with light palpation NEURO: A&OX3. Flat affect. Moves all extremities to command and spontaneously. Pupils equal round and reactive to light and accommodation. Tongue is midline. No facial droop. Patient extremely weak but does not appear to have pronator drift. Toes are downgoing bilaterally. Principal Dx & Hospital Course #1 = Principal Diagnosis (1) Weakness: 76-year-old female past medical history as significant for mixed stress and urge urinary incontinence, history of C. difficile colitis, depression, anxiety, kidney and pancreas transplant, hypertension, GERD originally admitted for weakness and suicidal ideation. Has since been evaluated by psychiatry and no longer endorsing SI. Weakness: - Patient Had COVID 11/06/2021, symptoms worsened 11/13 and was treated at [facility]. - During that hospitalization rehab was recommended however did not qualify due to lack of participation in hospital rehab. - She later cut bilateral wrists with superficial lacerations with kitchen knife, but no emergent intervention was needed. - Stool studies negative on 12/03. - UA/UCx this admission grew Proteus vulgaris; she has since completed a course of antibiotics. - Patient reports being currently at baseline with regard to her weakness. Depression: - Patient previously was on antidepressants but these were stopped several years ago. - Depression somewhat illness-related, with Hx transplant of pancreas and kidney with multiple health complaints since that time. - Psychiatry consult requested and appreciate recommendations: Patient cleared from psychiatric perspective does not require inpatient. - Mirtazapine discontinued this admission due to urinary retention issues. - Continue melatonin as needed for sleep. - Recommend PCP follow-up and consider SSRI/counseling. Mixed stress and urge urinary incontinence: - UA and UCx ordered on admission. UA was dirty; urine cx grew Proteus vulgaris. - Completed a course of antibiotics. - Patient's urinary symptoms are improved with a trial of oxybutynin during this admission; will continue. Rectal urgency: - No localized lower limb motor weakness to suggest cauda equina syndrome. - Stool studies ordered - negative on 12/03. - C. difficile testing not performed due to no diarrhea x24 hours on admission. - Suspect IBS given concurrent anxiety and depression. History of Clostridium difficile colitis: - Negative this admission. Suicidal ideation: - Resolved. Hoarding behavior: - Patient's daughter and family are cleaning parts of her house in order to make the space more comfortable for when Tunde ultimately does come home from halfway facility. S/P kidney transplant: - Baseline Cr ~0.5 - 0.8. - Continue Prograf as directed; home medication. - Continue Imuran. - No renal dysfunction this admission. 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 Hypertension: - BP at goal for age. - Continue losartan 25mg daily. Esophageal reflux disease: - Patient is not on any PPI or H2 nazario. - Follow symptomatically. (2) Depression: (3) Mixed stress and urge urinary incontinence: (4) Rectal urgency: (5) Epistaxis: (6) History of Clostridium difficile colitis: (7) Suicidal ideation: (8) Hoarding behavior: (9) S/P kidney transplant: (10) Pancreas replaced by transplant: (11) Hypertension: (12) Esophageal reflux disease: (13) DVT prophylaxis: Discharge Exam Constitutional WD/WN, vitals as above Psychiatric A+Ox3, euthymic affect Updated Medication List Medication Instructions Recorded Confirmed Type tacrolimus 1 mg capsule, 1 mg PO .COMPLEX 04/01/19 11/29/21 History immediate-release (Prograf) B-complex with vitamin C 1 tab PO DAILY 02/21/21 11/29/21 History blood sugar diagnostic ([employer] #200 ea 02/21/21 11/29/21 Rx Ultra Test strips) blood-glucose meter ([employer] #1 ea 02/21/21 11/29/21 Rx Ultra2 Meter kit) lancets 30 gauge ([employer] #200 ea 02/21/21 11/29/21 Rx Plus Lancet) azathioprine 50 mg tablet (Imuran) 75 mg PO DAILY 11/29/21 11/29/21 History losartan 25 mg tablet (Cozaar) 25 mg PO DAILY 11/29/21 11/29/21 History melatonin 3 mg tablet 6 mg PO HS PRN sleep #30 tabs 12/22/21 Rx oxybutynin chloride 5 mg 5 mg PO HS #30 tabs 12/22/21 Rx tablet,extended release 24 hr Hospital Stay Data Consultations 11/29/21 15:52 ED Decision to Admit Stat 11/29/21 20:35 Consult Psychiatry Routine Diagnostic Imagining Performed 11/29/21 14:17 CT abd pelvis wo con Stat 11/29/21 20:35 US venous doppler LE BI Urgent Discharge Instructions Given to Patient (Per Discharging Provider) 76-year-old female past medical history as significant for mixed stress and urge urinary incontinence, history of C. difficile colitis, depression, anxiety, kidney and pancreas transplant, hypertension, GERD originally admitted for weakness and suicidal ideation. Has since been evaluated by psychiatry and no longer endorsing SI. Weakness: - Patient Had COVID 11/06/2021, symptoms worsened 11/13 and was treated at [facility]. - During that hospitalization rehab was recommended however did not qualify due to lack of participation in hospital rehab. - She later cut bilateral wrists with superficial lacerations with kitchen knife, but no emergent intervention was needed. - Stool studies negative on 12/03. - UA/UCx this admission grew Proteus vulgaris; she has since completed a course of antibiotics. - Patient reports being currently at baseline with regard to her weakness. Depression: - Patient previously was on antidepressants but these were stopped several years ago. - Depression somewhat illness-related, with Hx transplant of pancreas and kidney with multiple health complaints since that time. - Psychiatry consult requested and appreciate recommendations: Patient cleared from psychiatric perspective does not require inpatient. - Mirtazapine discontinued this admission due to urinary retention issues. - Continue melatonin as needed for sleep. -Recommend PCP follow-up and consider SSRI/counseling. Mixed stress and urge urinary incontinence: - UA and UCx ordered on admission. UA was dirty; urine cx grew Proteus vulgaris. - Completed a course of antibiotics. - Patient's urinary symptoms are improved with a trial of oxybutynin during this admission; will continue. Rectal urgency: - No localized lower limb motor weakness to suggest cauda equina syndrome. - Stool studies ordered - negative on 12/03. - C. difficile testing not performed due to no diarrhea x24 hours on admission. - Suspect IBS given concurrent anxiety and depression. History of Clostridium difficile colitis: - Negative this admission. Suicidal ideation: - Resolved. Hoarding behavior: - Patient's daughter and family are cleaning parts of her house in order to make the space more comfortable for when Tunde ultimately does come home from halfway facility. S/P kidney transplant: - Baseline Cr ~0.5 - 0.8. - Continue Prograf as directed; home medication. - Continue Imuran. - No renal dysfunction this admission. 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 Hypertension: - BP at goal for age. - Continue losartan 25mg daily. Esophageal reflux disease: - Patient is not on any PPI or H2 nazario. - Follow symptomatically. Total Time Total Time Spent Total Time Spent (In Minutes): 35 Coding Level of Care Code D/C DAY MANAGEMENT >30 MINS Diagnoses Weakness R53.1 Depression F32.A Mixed stress and urge urinary incontinence N39.46 Rectal urgency R15.2 Epistaxis R04.0 History of Clostridium difficile colitis Z86.19 Suicidal ideation R45.851 Hoarding behavior F42.3 S/P kidney transplant Z94.0 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
[2021-12-22] MEDS ORDERED: LORazepam 0.5 MG TAB PO STA (12:24)
[2021-12-22] MEDS ORDERED: INFLUENZA VACCINE HIGH DOSE PF 65+ 0.7 ML SYR IM ONE (17:00)
== END 2021-12-22 13:39 | DRG 881 ==
LOC: ED 11:07 → EDINP 17:05 → SUATTDRO 17:05 → 2N 20:36 → 3N 12-08 06:31